=== PATIENT | male | born 1960 | race Caucasian/White ===

== ENCOUNTER 2021-10-22 08:25 | Outpatient (REF) | payer OTHER, SELFPAY ==
--- NOTE | ~2021-10-22 | CT_ITS ---
EXAMINATION: CT ABDOMEN WITHOUT AND WITH CONTRAST CLINICAL INFORMATION: Hypertension. Renal cyst. COMPARISON: Previous CT of the abdomen and pelvis June 2018 TECHNIQUE: Contiguous axial thin section helical images of the abdomen were performed before and after the administration of oral contrast and 85 mL of Omnipaque 350 intravenous contrast. The data set was reformatted in the coronal and sagittal planes and reviewed on an independent workstation. This CT examination was performed using dose optimization techniques as appropriate, variously including the following: *Automated exposure control *Adjustment of mA and/or kV according to patient size (this includes techniques or standardized protocols for targeted exams where dose is matched to indication/reason for exam; i.e. extremities or head) *Use of iterative reconstruction technique DLP: 495 mGy-cm FINDINGS: LUNG BASES: Normal LIVER, GALLBLADDER, AND BILIARY TREE: Normal PANCREAS: Normal SPLEEN: Normal ADRENAL GLANDS AND KIDNEYS: There is a 1.4 cm lesion exophytic to the posterior mid pole of the left kidney. Hounsfield units precontrast measure 22. Hounsfield units postcontrast measure 22 without evidence of enhancement. Appearance is suggestive of a slightly complex cyst. There is a 9 mm simple appearing cyst in the upper pole of the left kidney. There are 2 adjacent 5 mm simple appearing cysts in the lateral midpole of the right kidney. No renal mass or hydronephrosis. Normal adrenal glands. BOWEL LOOPS: The small and large bowel is unremarkable. There may be fold thickening of the stomach. LYMPH NODES: Normal. VASCULAR: There is a partially thrombosed lower abdominal aortic aneurysm. This measures 5.4 x 5.8 cm in AP and transverse dimension. This is slightly increased in size from 4.7 x 5 cm June 2018 exam. BONES: There are degenerative changes of the spine. CT/CT abdomen wo/w con IMPRESSION: Bilateral renal cysts. Largest cyst is a minimally complex 1.4 cm cyst exophytic to the posterior mid pole of the left kidney. The remainder of the renal cysts represent simple cysts. Partially thrombosed 5.4 x 5.8 cm abdominal aortic aneurysm slightly increased in size from most recent exam June 2018. Fleischner guidelines were followed. Findings will be communicated by the [facility] work flow education adviser.
[2021-10-22] MEDS: iohexoL 350 MG/ML 100 ML INFUS..BTL 85 ML IV (09:28)
== END 2021-10-22 08:26 | disposition home or self-care (01) ==
LOC: HO.CT 08:25
PROVIDERS: Visit Provider Internal Medicine Nephrology
DX: I10 Essential (primary) hypertension (principal)
CPT/HCPCS: 74170; Q9967

== ENCOUNTER 2022-08-22 11:54 | Emergency (ER) | payer OTHER, SELFPAY ==
[2022-08-22 12:15] VITALS: BP 155/90; PULSE 104; RESP 20; TEMP 36.8; O2SAT 96; BMI 29.8
--- NOTE | 2022-08-22 12:16 | ED.GENADULT ---
HPI - General Adult General Chief complaint: Urogenital-Male Stated complaint: blood in urine Time Seen by Provider: 08/22/22 13:00 Source: patient, RN notes reviewed and old records reviewed Mode of arrival: ambulatory History of Present Illness HPI narrative: 62-year-old male with a past medical history of UTI recently treated with Doxycycline on 08/03/22, presenting to the ED complaining of hematuria and dysuria x couple weeks. Admits was recently seen at [facility] diagnosed with UTI, taking antibiotics which he finished a few days ago without relief. Admits has been worked up for hematuria in the past with MRI/other studies, known to have enlarged prostate. Denies flank pain, abdominal pain, fever/chills, lightheadedness/dizziness, penile swelling/lesion Onset (ago): week(s) Related Data Previous Rx's Medication Instructions Recorded cefpodoxime 200 mg tablet 200 mg PO BID 7 days #14 tabs 08/22/22 phenazopyridine 100 mg tablet 100 mg PO TID PRN pain 6 doses #6 08/22/22 (Pyridium) tabs Allergies Allergy/AdvReac Type Severity Reaction Status Date / Time No Known Allergies Allergy Unverified 12/14/19 17:16 [No Known Allergies*] Review of Systems Review of Systems: Constitutional: No Fever, No Chills, No Fatigue, No Malaise ENT/Mouth: No Hearing loss, No Ear Pain, No sore throat, No Rhinorrhea, No Swallowing Difficulty Eyes: No Eye Pain, No Swelling, No Redness, No Vision Changes Cardiovascular: No Chest Pain, No SOB Respiratory: No Cough, No Sputum, No Dyspnea Gastrointestinal: No Nausea, No Vomiting, No Diarrhea, No Constipation, No Abdominal pain Genitourinary: No irregular bleeding, + Dysuria, No Urinary Frequency,+ Hematuria, No Flank Pain, No Urinary Flow Changes, No Hesitancy Musculoskeletal: No joint pain, No Myalgias, No Joint Swelling Skin: No Skin Lesions, No rash Neuro: No Weakness, No Loss of Consciousness, No Dizziness, No Headache Yes all other systems are reviewed and are negative Constitutional: Constitutional: Reports as per [facility] Past Medical History Attestation statement: The following information was validated with the patient. Source: old records reviewed Social History Social History Alcohol intake: never Smoked in Last 30 Days: No Use of substances other than those prescribed or required for medical reasons: No Advance Directives: No Advance Directives Information Provided: Yes Physical Exam ED Vital Signs: Vital Signs - 24 hr 08/22/22 12:15 08/22/22 14:33 08/22/22 16:48 Temperature 98.3 F 98.1 F 98.0 F Pulse Rate 104 H 81 78 Respiratory Rate 20 16 16 Blood Pressure 155/90 H 147/90 H 161/95 H Pulse Oximetry 96 96 96 Oxygen Delivery Method Room Air Room Air Room Air BMI result Body Mass Index 29.8 Const General: cooperative, healthy appearing and no acute distress Orientation/consciousness: patient oriented x3 Limitations: no limitations HENMT Head: Yes normal to inspection and Yes atraumatic Ears: hearing grossly normal bilaterally General nose exam: Normal external nose present Face and sinus: Yes normal facial exam Eyes General: appearance normal, both eyes and all related structures EOM: EOMs intact bilaterally Neck Neck: Yes normal visual inspection and Yes no meningeal signs Resp Effort & Inspection: normal respiratory effort and no respiratory distress Cardio Rate: regular rate Heart sounds: S1 normal heart sound present and S2 normal heart sound present GI Inspection: Yes normal to inspection Palpation (GI): Soft to palpation, nontender, no guarding and not rigid General: Yes no CVA tenderness Back/Spine/Pelvis Back: no CVA tenderness Skin Rashes: no rashes Wounds: no wounds Neuro General: patient oriented x3, tone normal and no meningeal signs Gait exam (Neuro): Normal gait present Extrem General: Yes normal to inspection Course Course Course Narrative: RME performed by Citlaly Catherine PA-C. Patient is a 62 year old assigned male at presenting to the emergency department with blood in his urine and pain with urination. Labs ordered. Patient placed back in the waiting room pending room availability and results. -1314--mild leukocytosis of 14.0 > likely reactive from pain. low suspicion for severe sepsis. Glucose mildly elevated to 243. Magnesium low 1.3 > 2 g IV repletion ordered -ALT mildly elevated. Alk-phos chronically elevated -1356--UA infected with blood, nitrates, leuk esterase, and wbc's > obtain lactic/blood cultures and give empiric IV Rocephin & Pyridium -1509--lactic acid 2.5 > patient is on metformin, likely cause. Nontoxic appearing, still low suspicion for severe sepsis > will give IVF and repeat -1630--ED care transferred to TYREE Pollack pending repeat lactic and anticipated discharge Reevaluation(s) Reevaluation #1: Patient received in sign-out at change of shift pending repeat lactate. Patient's lactate was decreased to 1.4, he is stable for discharge. Time: 17:14 Medications Administered Discontinued Medications Generic Name Dose Route Start Last Admin Trade Name Freq PRN Reason Stop Dose Admin Magnesium Sulfate 2 gm in 50 mls @ 25 mls/hr 08/22/22 12:56 08/22/22 16:19 Magnesium Sulfate/H2o IV 08/22/22 14:55 Infused ONCE ONE Infusion Ceftriaxone Sodium 1 gm/ 50 mls @ 100 mls/hr 08/22/22 13:54 08/22/22 16:19 Sodium Chloride IV 08/22/22 14:23 Infused ONCE ONE Infusion Sodium Chloride 1,000 mls @ 999 mls/hr 08/22/22 15:15 08/22/22 16:19 Ns IV 08/22/22 16:15 Infused .Q1H1M BIN Infusion Phenazopyridine HCl 100 mg 08/22/22 13:54 08/22/22 14:42 Phenazopyridine Hcl 100 Mg Tablet PO 08/22/22 13:55 100 mg ONCE ONE Administration Medical Decision Making Medical Decision Making [facility] Narrative: 62-year-old male with a past medical history of UTI recently treated with Doxycycline on 08/03/22, presenting to the ED complaining of hematuria and dysuria x couple weeks. On exam mildly tachycardic, NAD, nontoxic appearing, abdomen soft/nontender, no CVAT. Concern for UTI. Lower suspicion for pyelo/renal stone, appendicitis/diverticulitis, or testicular torsion. Low suspicion for severe sepsis Plan: Labs, UA Please refer to course for remaining clinical decision making, interpretation of labs/imaging results, and discussions with consultants and/or family members. Differential Diagnosis Differential Diagnoses: The differential diagnosis associated with the presentation includes As above Admission/Observation Consideration of admission/observation: Escalation of care including admission/observation considered Lab Data [facility] Lab Attestation statement: I reviewed the patient's lab results. 08/22/22 12:29 08/22/22 12:29 Labs: Lab Results 08/22/22 08/22/22 08/22/22 Range/Units 12:29 12:29 13:42 WBC 14.0 H (4.8-10.8) X10*3/uL RBC 4.81 (4.60-5.80) X10*6/uL Hgb 15.0 (14.0-18.0) g/dl Hct 43.7 (42.0-52.0) % MCV 90.9 (80.0-98.0) fL MCH 31.2 (27.0-33.0) pg MCHC 34.3 (31.0-36.0) g/dl RDW 14.9 (11.0-16.0) % Plt Count 365 (160-400) X10*3/uL MPV 9.4 (9.4-12.4) fL Immature Gran % (Auto) 0.4 (0.0-0.4) % Neut % (Auto) 57.8 (45-73) % Lymph % (Auto) 25.5 (20-40) % [place] % (Auto) 13.0 H (2-11) % Eos % (Auto) 2.4 (0-4) % Baso % (Auto) 0.9 (0-2) % Lymph # (Auto) 3.6 (1.2-4.9) X10*3/uL [place] # (Auto) 1.8 H (0.1-1.2) X10*3/uL Eos # (Auto) 0.3 (0.0-0.4) X10*3/uL Baso # (Auto) 0.1 (0.0-0.2) X10*3/uL Abs Immat Gran (auto) 0.05 H (0.00-0.03) X10*3/uL Absolute Neuts (auto) 8.1 (2.0-8.3) x10*3/uL Absolute Nucleated RBC 0.000 (0.0-0.012) X10*3/uL Nucleated RBC % (auto) 0.0 (0.0-0.2) /100WBC Smear Tech's Comments VERIFIED Sodium 142 (135-145) mmol/L Potassium 4.6 (3.3-5.1) mmol/L Chloride 106 (96-108) mmol/L Carbon Dioxide 26 (22-29) mmol/L Anion Gap 15 (12-20) BUN 16 (9-16) mg/dL Creatinine 0.85 (0.5-1.4) mg/dL Estim Creat Clear Calc 95.6 Estimated GFR > 60 Random Glucose 243 H (60-115) mg/dL Lactic Acid (0.5-2.0) mmol/L Calcium 10.1 (8.4-10.2) mg/dL Magnesium 1.3 L* (1.6-2.6) mg/dL Total Bilirubin 0.3 (0.0-1.0) mg/dL AST 33 (5-37) U/L ALT 51 H (0-40) U/L Alkaline Phosphatase 138 H (39-117) U/L Total Protein 7.2 (6.5-8.0) g/dL Albumin 4.3 (3.5-5.0) g/dL Lipase 35 (8-78) U/L Urine Color Dark Yellow Urine Appearance Turbid Urine pH 6.0 (5.0-9.0) Ur Specific [place] 1.020 (1.005-1.025) Urine Protein 300 (3+) H (Neg-Trace) mg/dL Urine Glucose (UA) 250 H (Negative) mg/dL Urine Ketones Negative (Negative) mg/dL Urine Blood Large (3+) H (Negative) Urine Nitrite Positive H (Negative) Ur Leukocyte Esterase Large (3+) H (Negative) Urine RBC >20 H (0-2) /HPF Urine WBC >50 H (0-5) /HPF Ur Squamous Epith Cells 0-2 (0-2) /HPF Urine Bacteria 1+ (None Seen) Hyaline Casts 0-2 (0-2) /LPF 08/22/22 08/22/22 Range/Units 14:30 16:46 WBC (4.8-10.8) X10*3/uL RBC (4.60-5.80) X10*6/uL Hgb (14.0-18.0) g/dl Hct (42.0-52.0) % MCV (80.0-98.0) fL MCH (27.0-33.0) pg MCHC (31.0-36.0) g/dl RDW (11.0-16.0) % Plt Count (160-400) X10*3/uL MPV (9.4-12.4) fL Immature Gran % (Auto) (0.0-0.4) % Neut % (Auto) (45-73) % Lymph % (Auto) (20-40) % [place] % (Auto) (2-11) % Eos % (Auto) (0-4) % Baso % (Auto) (0-2) % Lymph # (Auto) (1.2-4.9) X10*3/uL [place] # (Auto) (0.1-1.2) X10*3/uL Eos # (Auto) (0.0-0.4) X10*3/uL Baso # (Auto) (0.0-0.2) X10*3/uL Abs Immat Gran (auto) (0.00-0.03) X10*3/uL Absolute Neuts (auto) (2.0-8.3) x10*3/uL Absolute Nucleated RBC (0.0-0.012) X10*3/uL Nucleated RBC % (auto) (0.0-0.2) /100WBC Smear Tech's Comments Sodium (135-145) mmol/L Potassium (3.3-5.1) mmol/L Chloride (96-108) mmol/L Carbon Dioxide (22-29) mmol/L Anion Gap (12-20) BUN (9-16) mg/dL Creatinine (0.5-1.4) mg/dL Estim Creat Clear Calc Estimated GFR Random Glucose (60-115) mg/dL Lactic Acid 2.5 H* 1.4 (0.5-2.0) mmol/L Calcium (8.4-10.2) mg/dL Magnesium (1.6-2.6) mg/dL Total Bilirubin (0.0-1.0) mg/dL AST (5-37) U/L ALT (0-40) U/L Alkaline Phosphatase (39-117) U/L Total Protein (6.5-8.0) g/dL Albumin (3.5-5.0) g/dL Lipase (8-78) U/L Urine Color Urine Appearance Urine pH (5.0-9.0) Ur Specific [place] (1.005-1.025) Urine Protein (Neg-Trace) mg/dL Urine Glucose (UA) (Negative) mg/dL Urine Ketones (Negative) mg/dL Urine Blood (Negative) Urine Nitrite (Negative) Ur Leukocyte Esterase (Negative) Urine RBC (0-2) /HPF Urine WBC (0-5) /HPF Ur Squamous Epith Cells (0-2) /HPF Urine Bacteria (None Seen) Hyaline Casts (0-2) /LPF Radiology Impression Discussion of test interpretation with radiology: I have reviewed the radiologist's reading. External Record Review External record reviewed: Inpatient record, Office record, Outpatient record, Prior outpatient labs, Prior outpatient radiology, Primary care record and Outside ED record Tests considered The following testing was considered but not selected: As above Discharge Plan Discharge Clinical Impression: Urinary tract infection Patient Disposition: Home, Self-Care Instructions: Urinary Tract Infection in Men (DC) Additional Instructions: You have a urinary tract infection Cefpodoxime is an antibiotic please take as prescribed, increased fluid intake. Finish until completion Peridium will help with urinary discomfort YOU NEED TO FOLLOW-UP WITH UROLOGY OUTPATIENT. CALL WEDNESDAY AFTER THE TO MAKE AN APPOINTMENT If her symptoms persist or worsen you develop fever, persistent worsening abdominal pain return to the emergency department Prescriptions: New cefpodoxime 200 mg tablet 200 mg PO BID 7 Days Qty: 14 0RF Rx Instructions: must administer with a meal/food phenazopyridine [Pyridium] 100 mg tablet 100 mg PO TID PRN (Reason: pain) Qty: 6 0RF Referrals: [facility] [place]Provider Group]
[2022-08-22 12:37] LABS: Basophils Absolute Auto 0.1 X10*3/uL (0.0-0.2); Basophils Percent Auto 0.9 % (0-2); Eosinophils Absolute Auto 0.3 X10*3/uL (0.0-0.4); Eosinophils Percent Auto 2.4 % (0-4); Hematocrit 43.7 % (42.0-52.0); Imm Gran Abs Auto 0.05 X10*3/uL (0.00-0.03); Imm Gran Pct Auto 0.4 % (0.0-0.4); Lymphocytes Absolute Auto 3.6 X10*3/uL (1.2-4.9); Lymphocytes Percent Auto 25.5 % (20-40); MANUAL DIFF FLAG SCAN; Mean Corpuscular HGB Conc 34.3 g/dl (31.0-36.0); Mean Corpuscular Hemoglobin 31.2 pg (27.0-33.0); Mean Corpuscular Volume 90.9 fL (80.0-98.0); Mean Platelet Volume 9.4 fL (9.4-12.4); Monocytes Absolute Auto 1.8 X10*3/uL (0.1-1.2); Neutrophils Absolute Auto 8.1 x10*3/uL (2.0-8.3); Neutrophils Percent Auto 57.8 % (45-73); Platelet Count 365 X10*3/uL (160-400); Red Blood Count 4.81 X10*6/uL (4.60-5.80); Red Cell Distribution Width 14.9 % (11.0-16.0); SCAN SMEAR FLAG 1
[2022-08-22 12:56] LABS: Alanine Aminotransferase 51 U/L (0-40); Albumin Level 4.3 g/dL (3.5-5.0); Alkaline Phosphatase 138 U/L (39-117); Anion Gap 15 (12-20); Aspartate Amino Transferase 33 U/L (5-37); Bilirubin Total 0.3 mg/dL (0.0-1.0); Blood Urea Nitrogen 16 mg/dL (9-16); Calcium 10.1 mg/dL (8.4-10.2); Carbon Dioxide 26 mmol/L (22-29); Chloride 106 mmol/L (96-108); Creatinine Clr Calc Pharmacy 95.6; Estimated Glomerular Filt Rate > 60; Glucose Random 243 mg/dL (60-115); Magnesium 1.3 mg/dL (1.6-2.6); Potassium 4.6 mmol/L (3.3-5.1); Sodium 142 mmol/L (135-145); Total Protein 7.2 g/dL (6.5-8.0)
[2022-08-22 12:57] LABS: SLIDE REVIEW VERIFIED
[2022-08-22 13:39] LABS: Lipase 35 U/L (8-78)
[2022-08-22 13:48] LABS: Appearance Urine Turbid; Color Urine Dark Yellow; Glucose Urine UA 250 mg/dL (Negative); Leukocyte Esterase Urine Large (3+) (Negative); Nitrite Urine Positive (Negative); UMIC TRIGGER UACC YES; Urine Blood Large (3+) (Negative); Urine Ketones Negative (Negative); Urine Protein 300 (3+) mg/dL (Neg-Trace)
[2022-08-22 13:50] LABS: Bacteria Urine 1+ (None Seen); Hyaline Casts Urine 0-2 /LPF (0-2); RBC Urine >20 /HPF (0-2); Squamous Epithelial Cell Urine 0-2 /HPF (0-2); UACC Culture Trigger YES; WBC Urine >50 /HPF (0-5)
[2022-08-22] MEDS: Magnesium Sulfate/H2O 2 GM/50 ML PIGGYBACK IV (14:01)
[2022-08-22 14:33] VITALS: BP 147/90; PULSE 81; RESP 16; TEMP 36.7; O2SAT 96
[2022-08-22] MEDS: Phenazopyridine HCL 100 MG TABLET PO (14:42)
[2022-08-22 15:02] LABS: Lactic Acid 2.5 mmol/L (0.5-2.0)
[2022-08-22] MEDS: cefTRIAXone sodium 1 GM in 0.9 % Sodium Chloride 50 ML IV (15:26)
[2022-08-22] MEDS: 0.9 % Sodium Chloride 1,000 ML 999 ML IV (15:27)
[2022-08-22 16:34] LABS: Reflex Lactate? Lactic Acid Added
[2022-08-22 16:48] VITALS: BP 161/95; PULSE 78; RESP 16; TEMP 36.7; O2SAT 96
[2022-08-22 17:03] LABS: Lactic Acid 1.4 mmol/L (0.5-2.0)
== END 2022-08-22 17:49 | disposition home or self-care (01) ==
PROVIDERS: Physician Assistant; Physician Assistant Medical; Emergency Provider Internal Medicine
DX: N39.0 Urinary tract infection, site not specified (principal); B96.20 Unspecified Escherichia coli [E. coli] as the cause of diseases classified elsewhere; Z87.440 Personal history of urinary (tract) infections; Z79.899 Other long term (current) drug therapy
CPT/HCPCS: 36415; 80053; 81001; 83605; 83690; 83735; 85025; 87040; 87086; 87088; 87186; 96361; 96365; 96366; 96367; 99284; 99285; J0696; J3475

== ENCOUNTER → 2024-06-21 11:04 | Outpatient (BNVA) | payer SELFPAY | PROVIDERS: Visit Provider Physician Assistant | DX: Z02.79 Encounter for issue of other medical certificate (principal) ==

== ENCOUNTER 2024-08-26 12:16 | Inpatient (IN) | payer OTHER, SELFPAY ==
[2024-08-26] VITALS (13 sets, daily range): BP systolic 105–137; BP diastolic 56–82; PULSE 90–129; RESP 13–35; TEMP 36.9–39.2; O2SAT 92–95; BMI 30.7
--- NOTE | ~2024-08-26 | CT_ITS ---
CLINICAL HISTORY: buttock cellulitis to perineum ?[place] vs absce CT pelvisv with IV contrast. COMPARISON: None FINDINGS: Diffuse subcutaneous edema along the left gluteal region along the gluteal cleft extending inferiorly along the medial aspect of the left thigh. Organizing fluid collection present along bulbous urethra on the left measuring in total approximately 4.1 x 0.9 x 1.7 cm (series 3, image 367). No subcutaneous gas. No foreign body identified. Asymmetric smooth thickening of the mucosa of the urinary bladder along the proximal aspect (best seen on sagittal and coronal reformats series 4, image 50 and series 5, image 88). No free fluid present within the pelvis. Several enlarged left inguinal lymph nodes. For example left inguinal lymph node measuring 2.9 x 2.0 cm (series 3, image 261). Multiple prominent retroperitoneal/periaortic lymph nodes. Partially visualized aorto bi-iliac stent bridging the infrarenal abdominal aortic aneurysm measuring minimally up to 5.2 cm. No evidence of endoleak. Moderate spondylosis at L5-S1. No acute fracture or suspicious bone lesion. IMPRESSION: 1. Abscess present along the bulbous urethra on the left measuring in total approximately 4.1 x 0.9 x 1.7 cm. There is extensive adjacent subcutaneous edema extending along the medial aspect of the left thigh and left gluteal region. No subcutaneous gas. 2. Multiple prominent and enlarged left inguinal lymph nodes. 3. Indeterminate asymmetric thickening of the mucosa of the urinary bladder along the most proximal aspect. Recommend direct visualization for further characterization. This document has been electronically signed by: Donald Sultana MD on 08/26/2024 17:24:38
--- NOTE | 2024-08-26 12:21 | ED_ITS ---
HPI - General Adult General Chief complaint: Urogenital-Male Stated complaint: ? urinary infection Time Seen by Provider: 08/26/24 13:20 Source: patient, RN notes reviewed and old records reviewed Mode of arrival: ambulatory History of Present Illness ED Provider: Loretta Mckeon PA-C HPI narrative: 64-year-old male with a past medical history of diabetes presenting to the ED complaining of fever, chills, and worsening left buttock abscess x2 weeks with odorous urine. Reports associated constipation, last BM today in the ED. Admits to taking Amoxicillin which he had at home without relief. denies abdominal pain, nausea, vomiting, dysuria/hematuria. denies taking any antipyretics today Related Data Home Medications ?Medication ?Instructions ?Recorded ?Confirmed cholecalciferol (vitamin D3) 25 25 mcg PO DAILY 08/26/24 08/26/24 mcg (1,000 unit) capsule (Vitamin D3) losartan 100 1 tab PO DAILY 08/26/24 08/26/24 mg-hydrochlorothiazide 25 mg tablet metformin 1,000 mg tablet 1,000 mg PO BID 08/26/24 08/26/24 multivitamin (One Daily 1 tab PO DAILY 08/26/24 08/26/24 Multivitamin tablet) Allergies Allergy/AdvReac Type Severity Reaction Status Date / Time lisinopril Allergy Unknown Verified 08/26/24 12:24 Review of Systems 2 Review of Systems: Yes all other systems are reviewed and are negative Constitutional: Constitutional: Reports as per HPI [facility] Past Medical History Attestation statement: The following information was validated with the patient. Source: old records reviewed Social History Social History Alcohol intake: never Advance Directives: No Advance Directives Information Provided: Yes Physical Exam ED Vital Signs: Vital Signs - 24 hr 08/26/24 12:23 08/26/24 13:49 08/26/24 13:58 Temperature 98.5 F 101.8 F H 101.8 F H Pulse Rate 129 H 116 H 113 H Respiratory Rate 20 29 H 35 H Blood Pressure 127/82 125/74 132/76 Pulse Oximetry 95 94 94 Oxygen Delivery Method Room Air Room Air Room Air 08/26/24 14:19 08/26/24 14:23 08/26/24 15:14 Temperature 102.5 F H Pulse Rate 109 H Respiratory Rate 21 H 17 Blood Pressure 137/80 Pulse Oximetry 94 Oxygen Delivery Method Room Air 08/26/24 15:16 08/26/24 16:32 08/26/24 16:34 Temperature 102.5 F H 100.9 F H Pulse Rate 98 90 Respiratory Rate 23 H 18 28 H Blood Pressure 114/64 122/68 Pulse Oximetry 93 94 Oxygen Delivery Method Room Air Room Air BMI result Body Mass Index 30.7 Const General: cooperative, healthy appearing and no acute distress Orientation/consciousness: patient oriented x3 Limitations: no limitations HENMT Head: Yes normal to inspection and Yes atraumatic Ears: hearing grossly normal bilaterally General nose exam: Normal external nose present Face and sinus: Yes normal facial exam Eyes General: appearance normal, both eyes and all related structures EOM: EOMs intact bilaterally Neck Neck: Yes normal visual inspection and Yes no meningeal signs Resp Effort & Inspection: normal respiratory effort and no respiratory distress Auscultation: clear to auscultation bilaterally Cardio Rate: regular rate Heart sounds: S1 normal heart sound present and S2 normal heart sound present GI Other: please refer to images above. Left buttock with erythematous swelling, warm, and indurated area extending to perineum. No appreciable perirectal involvement. No fluctuance. No active drainage. No crepitus Inspection: Yes normal to inspection Palpation (GI): Soft to palpation, nontender, no guarding and not rigid General: Yes no CVA tenderness Back/Spine/Pelvis Back: no CVA tenderness Skin Rashes: no rashes Wounds: no wounds Neuro General: patient oriented x3, tone normal and no meningeal signs Cranial nerves: Yes CN's II-XII intact bilaterally Gait exam (Neuro): Normal gait present Extrem General: Yes normal to inspection Course Course Course Narrative: RME performed by Citlaly Catherine PA-C. Patient is a 64 year old assigned male at presenting to the emergency department with a worsening left buttock abscess and strong smelling urine. Patient states that over the last few days he has had an abscess on his left buttock that is getting significantly worse. Patient states that he is a diabetic and he has not been able to have a bowel movement for 1 week. Patient states that he has been taking amoxicillin but it was not prescribed to him he has just been taking it. Detailed physical exam and review of systems are deferred to the oil field worker. Labs ordered. Patient placed back in the waiting room pending room availability and results. - leukocytosis of 20.2. ESR elevated to 83, CRP elevated 16.6 -glucose 335, BUN elevated to 24. AST/ALT mildly elevated. Alk phos chronically elevated >1630-- pelvic CT without appreciable fluid collection. Case discussed with general surgery, Dr. De Anda who evaluated patient in the ED. Recommends medicine admission for IV abx, NPO, and he will follow 1734--CT pelvis w IV con IMPRESSION: 1. Abscess present along the bulbous urethra on the left measuring in total approximately 4.1 x 0.9 x 1.7 cm. There is extensive adjacent subcutaneous edema extending along the medial aspect of the left thigh and left gluteal region. No subcutaneous gas. 2. Multiple prominent and enlarged left inguinal lymph nodes. 3. Indeterminate asymmetric thickening of the mucosa of the urinary bladder along the most proximal aspect. Recommend direct visualization for further characterization > will discuss case with Urology, Dr. Sánchez > recommended NO Chambers placement. Keep patient NPO. - patient was able to provide UA. UA appears infected Medications Administered Discontinued Medications Generic Name Dose Route Start Last Admin Trade Name Freq PRN Reason Stop Dose Admin Sodium Chloride 1,000 mls @ 999 mls/hr 08/26/24 13:45 08/26/24 15:14 Ns IV 08/26/24 14:45 Infused .Q1H1M BIN Infusion Piperacillin Sod/Tazobactam 100 mls @ 200 mls/hr 08/26/24 13:37 08/26/24 14:30 Sod 4.5 gm/ Sodium Chloride IV 08/26/24 14:06 Infused ONCE ONE Infusion Vancomycin HCl 2,000 mg in 500 mls @ 250 mls/hr 08/26/24 13:37 08/26/24 17:25 Vancomycin/Ns IV 08/26/24 15:36 Infused ONCE ONE Infusion Acetaminophen 1,000 mg in 100 mls @ 400 mls/hr 08/26/24 14:00 08/26/24 14:40 Ofirmev IV 08/26/24 14:14 Infused ONCE ONE Infusion Lactated Ringer's 1,000 mls @ 999 mls/hr 08/26/24 15:00 08/26/24 16:30 Lr IV 08/26/24 16:00 Infused .Q1H1M BIN Infusion Iohexol 100 ml 08/26/24 15:01 08/26/24 15:01 Iohexol 350 Mg/Ml 100 Ml Infus..Btl IV 08/26/24 15:02 85 ml ONCE ONE Administration Ketorolac Tromethamine 15 mg 08/26/24 15:01 08/26/24 15:16 Ketorolac Tromethamine 15 Mg/Ml Vial IVPUSH 08/26/24 15:02 15 mg ONCE ONE Administration Morphine Sulfate 2 mg 08/26/24 14:00 08/26/24 14:19 Morphine Sulfate 2 Mg/Ml Cartridge IVPUSH 08/26/24 14:01 2 mg ONCE ONE Administration Protocol Morphine Sulfate 2 mg 08/26/24 16:18 08/26/24 16:34 Morphine Sulfate 2 Mg/Ml Cartridge IVPUSH 08/26/24 16:19 2 mg ONCE ONE Administration Protocol Medical Decision Making Medical Decision Making MDM Narrative: 64-year-old male with a past medical history of diabetes presenting to the ED complaining of fever, chills, and worsening left buttock abscess x2 weeks with odorous urine. on exam tachycardic, tachypneic, febrile, physical exam as noted above, please refer to images. Concern for cellulitis vs deeper infection/edema vs abscess. Roberta's gangrene on differential. Low suspicion for testicular torsion. Lower suspicion for diverticulitis/ appendicitis at this time Plan: Labs, lactic/ blood cultures, UA, CT, IVF, empiric IV antibiotics, anticipated admission Please refer to course for remaining clinical decision making, interpretation of labs/imaging results, and discussions with consultants and/or family members. Differential Diagnosis Differential Diagnoses: The differential diagnosis associated with the presentation includes As above Admission/Observation Consideration of admission/observation: Escalation of care including admission/observation considered Consult Healthcare Provider Management of the patient was discussed with: Hospitalist and Painting Trades Worker ( general surgery & urology) Lab Data [facility] Lab Attestation statement: I reviewed the patient's lab results. 08/26/24 12:55 08/26/24 12:55 Labs: Lab Results 08/26/24 08/26/24 Range/Units 12:55 13:51 WBC 20.2 H (4.8-10.8) X10*3/uL RBC 4.94 (4.60-5.80) X10*6/uL Hgb 14.6 (14.0-18.0) g/dl Hct 42.1 (42.0-52.0) % MCV 85.2 (80.0-98.0) fL MCH 29.6 (27.0-33.0) pg MCHC 34.7 (31.0-36.0) g/dl RDW 12.7 (11.0-16.0) % Plt Count 385 (160-400) X10*3/uL MPV 9.7 (9.4-12.4) fL Immature Gran % (Auto) 0.5 H (0.0-0.4) % Neut % (Auto) 77.9 H (45-73) % Lymph % (Auto) 9.1 L (20-40) % [place] % (Auto) 11.8 H (2-11) % Eos % (Auto) 0.2 (0-4) % Baso % (Auto) 0.5 (0-2) % Lymph # (Auto) 1.8 (1.2-4.9) X10*3/uL [place] # (Auto) 2.4 H (0.1-1.2) X10*3/uL Eos # (Auto) 0.0 (0.0-0.4) X10*3/uL Baso # (Auto) 0.1 (0.0-0.2) X10*3/uL Abs Immat Gran (auto) 0.11 H (0.00-0.03) X10*3/uL Absolute Neuts (auto) 15.7 H (2.0-8.3) x10*3/uL Absolute Nucleated RBC 0.000 (0.0-0.012) X10*3/uL Nucleated RBC % (auto) 0.0 (0.0-0.2) /100WBC Smear Tech's Comments VERIFIED ESR 83 H (0-15) MM/HR Sodium 131 L (135-145) mmol/L Potassium 4.2 (3.3-5.1) mmol/L Chloride 99 (96-108) mmol/L Carbon Dioxide 19 L (22-29) mmol/L Anion Gap 17 (12-20) BUN 24 H (9-16) mg/dL Creatinine 0.89 (0.5-1.4) mg/dL Estim Creat Clear Calc 87.4 Estimated GFR > 60 POC Glucose 307 H (60-115) mg/dL Random Glucose 335 H (60-115) mg/dL Lactic Acid 1.3 (0.5-2.0) mmol/L Calcium 9.3 D (8.4-10.2) mg/dL Magnesium 1.9 (1.6-2.6) mg/dL Total Bilirubin 0.5 (0.0-1.0) mg/dL AST 81 H (5-37) U/L ALT 85 H (0-40) U/L Alkaline Phosphatase 131 H (39-117) U/L C-Reactive Protein 16.60 H (< or = 0.50) mg/dL Total Protein 7.9 (6.5-8.0) g/dL Albumin 3.9 (3.5-5.0) g/dL Independent Interpretation I performed an independent interpretation of an: CT Scan Radiology Impression Discussion of test interpretation with radiology: I have reviewed the radiologist's reading. Independent Historian Clinical information obtained from an independent historian. History obtained from or confirmed by: Spouse External Record Review External record reviewed: Inpatient record, Office record, Outpatient record, Prior outpatient labs, Prior outpatient radiology, Primary care record and Outside ED record Tests considered The following testing was considered but not selected: As above Prescription Management I considered prescription management with: Pain Medication and Antibiotic Chronic Conditions Patient?s care impacted by: Diabetes and Other Social Determinants Patient?s care significantly limited by Social Determinants of Health including: Other Social Determinant of Health Critical Care Time Critical Care Time Critical Care Time: Yes Total Critical Care Time: 50 Attestation: I have personally provided critical care time exclusive of time spent on separately billable procedures. Time includes review of lab data, radiology results, discussion with consultants, and monitoring for potential decompensation. Intervention performed as documented. Discharge Plan Discharge Clinical Impression: Urethral abscess, Cellulitis of buttock, left Patient Disposition: Admitted As Inpatient
[2024-08-26 13:07] LABS: Basophils Absolute Auto 0.1 X10*3/uL (0.0-0.2); Basophils Percent Auto 0.5 % (0-2); Eosinophils Percent Auto 0.2 % (0-4); Hematocrit 42.1 % (42.0-52.0); Hemoglobin 14.6 g/dl (14.0-18.0); Imm Gran Abs Auto 0.11 X10*3/uL (0.00-0.03); Imm Gran Pct Auto 0.5 % (0.0-0.4); Lymphocytes Absolute Auto 1.8 X10*3/uL (1.2-4.9); Lymphocytes Percent Auto 9.1 % (20-40); MANUAL DIFF FLAG SCAN; Mean Corpuscular HGB Conc 34.7 g/dl (31.0-36.0); Mean Corpuscular Hemoglobin 29.6 pg (27.0-33.0); Mean Corpuscular Volume 85.2 fL (80.0-98.0); Mean Platelet Volume 9.7 fL (9.4-12.4); Monocytes Absolute Auto 2.4 X10*3/uL (0.1-1.2); Monocytes Percent Auto 11.8 % (2-11); Neutrophils Absolute Auto 15.7 x10*3/uL (2.0-8.3); Neutrophils Percent Auto 77.9 % (45-73); Platelet Count 385 X10*3/uL (160-400); Red Blood Count 4.94 X10*6/uL (4.60-5.80); Red Cell Distribution Width 12.7 % (11.0-16.0); SCAN SMEAR FLAG 1; White Blood Count 20.2 X10*3/uL (4.8-10.8)
[2024-08-26 13:21] LABS: Alanine Aminotransferase 85 U/L (0-40); Albumin Level 3.9 g/dL (3.5-5.0); Alkaline Phosphatase 131 U/L (39-117); Anion Gap 17 (12-20); Aspartate Amino Transferase 81 U/L (5-37); Bilirubin Total 0.5 mg/dL (0.0-1.0); Blood Urea Nitrogen 24 mg/dL (9-16); Calcium 9.3 mg/dL (8.4-10.2); Carbon Dioxide 19 mmol/L (22-29); Chloride 99 mmol/L (96-108); Creatinine Clr Calc Pharmacy 87.4; Estimated Glomerular Filt Rate > 60; Glucose Random 335 mg/dL (60-115); Lactic Acid 1.3 mmol/L (0.5-2.0); Magnesium 1.9 mg/dL (1.6-2.6); Potassium 4.2 mmol/L (3.3-5.1); Sodium 131 mmol/L (135-145); Total Protein 7.9 g/dL (6.5-8.0)
[2024-08-26 13:27] LABS: SLIDE REVIEW VERIFIED
--- NOTE | 2024-08-26 13:37 | ECG_ITS ---
Test Reason : TACHY Blood Pressure : */* mmHG Vent. Rate : 116 BPM Atrial Rate : 116 BPM P-R Int : 152 ms QRS Dur : 132 ms QT Int : 352 ms P-R-T Axes : 45 -49 30 degrees QTcB Int : 489 ms Sinus tachycardia Right bundle branch block Left anterior fascicular block Bifascicular block Abnormal ECG When compared with ECG of 15-Jul-2018 01:44, Left anterior fascicular block is now Present Nonspecific T wave abnormality has replaced inverted T waves in Inferior leads Referred By: Rose Self Electronically Signed By: ERIS CARCAMO MD
[2024-08-26 13:43] LABS: Erythrocyte Sedimentation Rate 83 MM/HR (0-15)
[2024-08-26 13:55] LABS: Glucose, Whole Blood 307 mg/dL (60-115)
[2024-08-26] MEDS: Piperacillin Sodium/Tazobactam 4.5 GM in 0.9 % Sodium Chloride 100 ML IV (13:55)
[2024-08-26] MEDS: 0.9 % Sodium Chloride 1,000 ML 999 ML IV (13:55)
--- NOTE | 2024-08-26 14:00 | PC.NURSE ---
Late charting d/t patient care- Pt arrives to ED tachycardiac, tachypneic and febrile. Sepsis alert called @ 1334. Pt a/ox3, speaking in full sentences, respirations even and unlabored, mild sob- RR 23-28, no accessory muscle use/tripoding, placed on pvc monitor, continuous O2 probe, and BP cycling q10 to monitor for hypotension, sinus tach HR 110s-120s, denies CP. Rectal temp 102.5- PA Loretta made aware. Rectal probe placed to monitor pt temperature. 20g IV placed R AC by this RN. Labs and blood cultures obtained and sent to lab. IV abx hung after cultures obtained, IV fluids infusing per MAR, vitalss entered into worklist. Pt taken to CT scan.
[2024-08-26] MEDS: Acetaminophen 1,000 MG/100 ML PIGGYBACK 400 MG IV (14:18)
[2024-08-26] MEDS: Morphine Sulfate 2 MG/ML CARTRIDGE IVPUSH ×2 (14:19→16:34)
[2024-08-26] MEDS: iohexoL 350 MG/ML 100 ML INFUS..BTL IV (15:01)
[2024-08-26] MEDS: vancomycin/NS 2,000 MG/500 ML PLAST..BAG 250 MG IV (15:15)
[2024-08-26] MEDS: Lactated Ringers 1,000 ML 999 ML IV (15:16)
[2024-08-26] MEDS: Ketorolac Tromethamine 15 MG/ML VIAL IVPUSH (15:16)
--- NOTE | 2024-08-26 16:42 | PM.CNGS ---
History of Present Illness Consult details Consult date: 08/26/24 Narrative: 64-year-old male who says he has air in the ER because of severe pain with urination, as well as with a swelling and tenderness on the left buttock area. Review of his records show this was actually in the ER 4 days ago for dysuria was diagnosed to have a UTI. He was discharged on oral antibiotics. He says that this has not really improved and continues to have significant pain and burning with urination. He admits to having had a long history of urinary tract infections and had a procedure done in [facility] last year. He says that he was being followed by urologist He also says he has had this going on the buttock area for about 10 days now. He says that he has significant pain as well. He is a diabetic admits that he does not really keep track of his blood sugars. Review of Systems Constitutional: Constitutional: Reports chills and Reports fever(s) Cardiovascular: Cardiovascular: Denies chest pain and Denies dyspnea Respiratory: Respiratory: Denies cough and Denies dyspnea Gastrointestinal: Gastrointestinal: Denies abdominal pain Genitourinary: Genitourinary: Reports difficulty urinating and Reports dysuria [facility] Social History Social History Alcohol intake: never Patient Tobacco Use Status: Never used Tobacco Meds Allergies Allergy/AdvReac Type Severity Reaction Status Date / Time lisinopril Allergy Unknown Verified 08/26/24 12:24 Home Medications ?Medication ?Instructions ?Recorded ?Confirmed ?Last Taken ?Type cholecalciferol (vitamin D3) 25 25 mcg PO DAILY 08/26/24 08/26/24 08/25/24 History mcg (1,000 unit) capsule (Vitamin D3) losartan 100 1 tab PO DAILY 08/26/24 08/26/24 08/25/24 History mg-hydrochlorothiazide 25 mg tablet metformin 1,000 mg tablet 1,000 mg PO BID 08/26/24 08/26/24 08/25/24 History multivitamin (One Daily 1 tab PO DAILY 08/26/24 08/26/24 08/25/24 History Multivitamin tablet) Physical Exam Vital Signs: Vital Signs: Last Vital Signs Temp 100.7 F H 08/26/24 16:41 Pulse 92 08/26/24 16:41 Resp 25 H 08/26/24 16:41 BP 119/67 08/26/24 16:41 Pulse Ox 94 08/26/24 16:41 O2 Del Method Room Air 08/26/24 16:41 BMI result Body Mass Index 30.7 Const: Other: Alert, does not seem to be in any distress, comfortable looking and answers questions well General: comfortable and no acute distress Resp: Effort & Inspection: normal respiratory effort Cardio: Rate: regular rate GI: Palpation (GI): Soft to palpation Back/Spine/Pelvis: Other: Area of induration on the left buttock towards the perineum,, about 6 cm, redness, no obvious discharge, no obvious drainage no obvious fluctuance, no crepitus, some erythema but no dark discoloration suggestive of necrotizing infection Results Labs 08/27/24 04:59 08/27/24 04:59 Labs: Abnormal lab results 08/26/24 08/26/24 Range/Units 12:55 13:51 WBC 20.2 H (4.8-10.8) X10*3/uL Immature Gran % (Auto) 0.5 H (0.0-0.4) % Neut % (Auto) 77.9 H (45-73) % Lymph % (Auto) 9.1 L (20-40) % [place] % (Auto) 11.8 H (2-11) % [place] # (Auto) 2.4 H (0.1-1.2) X10*3/uL Abs Immat Gran (auto) 0.11 H (0.00-0.03) X10*3/uL Absolute Neuts (auto) 15.7 H (2.0-8.3) x10*3/uL ESR 83 H (0-15) MM/HR Sodium 131 L (135-145) mmol/L Carbon Dioxide 19 L (22-29) mmol/L BUN 24 H (9-16) mg/dL POC Glucose 307 H (60-115) mg/dL Random Glucose 335 H (60-115) mg/dL AST 81 H (5-37) U/L ALT 85 H (0-40) U/L Alkaline Phosphatase 131 H (39-117) U/L C-Reactive Protein 16.60 H (< or = 0.50) mg/dL Short CBC 08/26/24 Range/Units 12:55 WBC 20.2 H (4.8-10.8) X10*3/uL Hgb 14.6 (14.0-18.0) g/dl Hct 42.1 (42.0-52.0) % Plt Count 385 (160-400) X10*3/uL BMP 08/26/24 12:55 Sodium 131 L Potassium 4.2 Chloride 99 Carbon Dioxide 19 L BUN 24 H Creatinine 0.89 Calcium 9.3 D Liver Function 08/26/24 Range/Units 12:55 Total Bilirubin 0.5 (0.0-1.0) mg/dL AST 81 H (5-37) U/L ALT 85 H (0-40) U/L Alkaline Phosphatase 131 H (39-117) U/L Albumin 3.9 (3.5-5.0) g/dL All other labs normal. Assessment and Plan (1) Cellulitis of buttock, left: Status: Acute He has a significant induration with cellulitis in the left buttock. I have reviewed his CAT scan and this shows stranding in the subcutaneous fat any fluid collection. Clinically, he had is not presenting with necrotizing soft tissue infection. He does have clinical signs of a UTI as well I have recommended admission for IV antibiotics. He has has significant leukocytosis. Has been started on Zosyn. His blood sugars should be well controlled I told him that if repeat exam tomorrow shows worsening, I may take him to the operating room for an I&D the left buttock under anesthesia I explained this procedure to himself and his at bedside . His CAT scan on official read says that the inflammatory process may be originating from the bulbous urethra. I would recommend consulting the radiologist for this. His lactate is normal. Procedures Date of Service Date of Service: 08/28/24
[2024-08-26 16:59] LABS: Appearance Urine Turbid; Color Urine Yellow; Glucose Urine UA 100 mg/dL (Negative); Leukocyte Esterase Urine Large (3+) (Negative); Nitrite Urine Negative (Negative); Specific Gravity - Urine >= 1.030 (1.005-1.025); UMIC TRIGGER UACC YES; Urine Blood Moderate (2+) (Negative); Urine Ketones Trace mg/dL (Negative); Urine Protein 30 (1+) mg/dL (Neg-Trace)
--- NOTE | 2024-08-26 17:30 | PC.NURSE ---
Pt poc's elevated 300s, TYREE Burgos and MD Solorzano aware. No new orders at this time.
[2024-08-26 17:38] LABS: Bacteria Urine 1+ (None Seen); Hyaline Casts Urine 0-2 /LPF (0-2); RBC Urine 0-2 /HPF (0-2); UACC Culture Trigger YES; WBC Clumps Urine Present; WBC Urine >50 /HPF (0-5)
--- NOTE | 2024-08-26 17:40 | PHA.MEDREC ---
Pharmacy Consult ? Medication Reconciliation Pharmacy has completed the medication reconciliation. Spoke to patient to confirm medication list.
--- NOTE | 2024-08-26 17:44 | PM.IMHP ---
History of Present Illness Date of Service: 08/26/24 Chief Complaint: fever, buttock pain 64yo M with DM2, HTN, and BPH s/p robotic-assisted laparoscopic simple prostatectomy [[facility] 03/30/23] presenting with worsening painful lump on the L inner buttock over the last 2 weeks with associated foul urine, fever, and chills. No drainage from the lump, but it is red. Some nausea and vomiting. No dysuria or hematuria. He took amoxicillin leftover from an old dental infection at home without any relief. He is found here to be septic with leukcytosis, fever, tachypnea, and tachycardia. CT of the pelvis shows an abscess along the bulbous urethra with extensive adjacent subcutaneous edema extending along the left thigh and gluteal area, with asymmetric bladder thickening. General Surgery and Urology were notified by the ED and he will be admitted to the hospitalist service. He is from the [place] and his PCP is Emily Munson at [facility], but he hasn't seen her yet. This history was taken in [place] from the patient. Review of Systems Review of Systems: Yes all other systems are reviewed and are negative [facility] Social History Alcohol intake: never Advance Directives: No Advance Directives Information Provided: Yes Meds Allergies Allergy/AdvReac Type Severity Reaction Status Date / Time lisinopril Allergy Unknown Verified 08/26/24 12:24 Active Medications: Current Medications Dextrose (Dextrose 50 % 25 Gm/50 Ml Syringe) 25 gm IVPUSH Q15M PRN; Protocol PRN Reason: per Hypoglycemia Standing Ord. Glucose (Glucose Gel 15 Gm Gel..Gram.) 15 gm PO Q15M PRN; Protocol PRN Reason: per Hypoglycemia Standing Ord. Piperacillin Sod/Tazobactam (Sod 3.375 gm/ Sodium Chloride) 50 mls @ 100 mls/hr IV Q6H [facility] Insulin Human Lispro (Insulin Lispro 100 Unit/Ml 3 Ml Vial) 0 unit SUBCUT QIDACHS [facility]; Protocol Multivitamins/Vitamin C (Multivitamin Tablet) 1 tab PO DAILY [facility] Pharmacy Consult (Consult Rx Vancomycin Dosing) 1 each MISCELLANE DAILY [facility] Vitamin D (Cholecalciferol (Vitamin D3) 25 Mcg Tablet) 25 mcg PO DAILY BIN Home Medications ?Medication ?Instructions ?Recorded ?Confirmed ?Last Taken ?Type cholecalciferol (vitamin D3) 25 25 mcg PO DAILY 08/26/24 08/26/24 08/25/24 History mcg (1,000 unit) capsule (Vitamin D3) losartan 100 1 tab PO DAILY 08/26/24 08/26/24 08/25/24 History mg-hydrochlorothiazide 25 mg tablet metformin 1,000 mg tablet 1,000 mg PO BID 08/26/24 08/26/24 08/25/24 History multivitamin (One Daily 1 tab PO DAILY 08/26/24 08/26/24 08/25/24 History Multivitamin tablet) Physical Exam Vital Signs and Narrative: Vital Signs: Last Vital Signs Temp 99.9 F 08/26/24 17:41 Pulse 92 08/26/24 17:41 Resp 13 08/26/24 17:41 BP 107/56 L 08/26/24 17:41 Pulse Ox 92 08/26/24 17:41 O2 Del Method Room Air 08/26/24 17:41 BMI result Body Mass Index 30.7 Gen: in no acute distress HEENT: sclera anicteric, moist mucus membranes Neck: supple Lungs: clear to auscultation bilaterally Heart: regular rate and rhythm, no murmurs Abd: soft, non-tender, non-distended Ext: no edema Skin: warm/well-perfused, tender indurated L buttock medially with erythema but no fluctuance Neuro: alert and oriented x3, no focal findings Psych: appropriate affect Results Labs 08/26/24 12:55 08/26/24 12:55 Labs: Laboratory Results - last 24 hr 08/26/24 08/26/24 08/26/24 12:55 13:51 16:53 MCV 85.2 MCH 29.6 MCHC 34.7 RDW 12.7 Plt Count 385 MPV 9.7 Immature Gran % (Auto) 0.5 H Neut % (Auto) 77.9 H Lymph % (Auto) 9.1 L [place] % (Auto) 11.8 H Eos % (Auto) 0.2 Baso % (Auto) 0.5 Lymph # (Auto) 1.8 [place] # (Auto) 2.4 H Eos # (Auto) 0.0 Baso # (Auto) 0.1 Abs Immat Gran (auto) 0.11 H Absolute Neuts (auto) 15.7 H Absolute Nucleated RBC 0.000 Nucleated RBC % (auto) 0.0 Smear Tech's Comments VERIFIED ESR 83 H Anion Gap 17 Estim Creat Clear Calc 87.4 Estimated GFR > 60 POC Glucose 307 H Random Glucose 335 H Lactic Acid 1.3 Calcium 9.3 D Magnesium 1.9 Total Bilirubin 0.5 AST 81 H ALT 85 H Alkaline Phosphatase 131 H C-Reactive Protein 16.60 H Total Protein 7.9 Albumin 3.9 Urine Color Yellow Urine Appearance Turbid Urine pH 6.0 Ur Specific [place] >= 1.030 H Urine Protein 30 (1+) H Urine Glucose (UA) 100 H Urine Ketones Trace Urine Blood Moderate (2+) H Urine Nitrite Negative Ur Leukocyte Esterase Large (3+) H Urine RBC 0-2 Urine WBC >50 H Urine WBC Clumps Present Ur Squamous Epith Cells 3-5 Urine Bacteria 1+ Hyaline Casts 0-2 Assessment and Plan (1) Sepsis: Status: Acute Plan 64yo M with DM2, HTN, and BPH s/p prostatectomy [[facility] 03/30/23] presenting with worsening L buttock painful lump over the last 2 weeks with associated foul urine, fever, and chills; found to be septic with abscess along bulbous urethra with associated cellulitis of the gluteal/perineal area. sepsis due to urethral abscess and gluteal/perineal cellulitis - admit to telemetry. No discoloration to suggest fasciitis/Roberta's gangrene but will cover broadly with vancomycin, piperacillin-tazobactam, and clindamycin. NPO after midnight and will consult Gen Surg, Urology, and Infectious Disease. Follow BCx + UCx. DM2 with hyperglycemia - check A1c and give correction-dose lispro HTN - hold losartan + HCTZ due to sepsis VTE ppx - enoxaparin dispo - TBD code status - full I anticipate that the patient will stay at least 2 midnights as an inpatient in the hospital due to the above reasons. It is neither reasonable nor safe to care for them in a less acute setting. Total time managing care of this patient today: 50 minutes. Quality Stroke Does the patient have a stroke diagnosis?: No VTE Prior VTE?: No VTE Risk Level:: Medical - moderate - high VTE Device Contraindication: N/A - Device Ordered VTE Drug Contraindication: N/A - Med Ordered
--- NOTE | 2024-08-26 17:51 | PHA.PROG ---
Admission Date/Time: August 26, 2024 16:40 Indication: INTRA ABDOMINAL Weight in k.183 kg Adjusted body weight in Kg: [place] body weight in Kg: Obesity Dosing Indication % IBW: Serum Creatinine - Last 168 Hours 08/26/24 12:55 Creatinine 0.89 Estimated CrCl and GFR - Last 168 Hours 08/26/24 12:55 Estim Creat Clear Calc 87.4 Estimated GFR > 60 Vancomycin Loading Dose: 2000 MG Current Vancomycin Dosing Regimen: 1000 MG Q12H Vancomycin Monitoring using AUC goal of 400 - 600 range with trough as surrogate marker: SCK=978 TROUGH=15.8 Date and Time for next Vancomycin Level to be drawn: 08/27/24 @1300 Pharmacist Comments on Vancomycin Plan: Vancomycin dosing will take advantage of [employer] as a clinical decision support tool that uses Bayesian modeling to calculate individual patient's pharmacokinetic parameters and forecast the patient's drug concentration time course with the target goal AUC 24 range of 400 - 600 mg/L/hr.
[2024-08-26] MEDS: Clindamycin Phosphate/D5W 600 MG/50 ML PIGGYBACK 100 MG IV (18:16)
[2024-08-26 19:21] LABS: Glucose, Whole Blood 272 mg/dL (60-115)
[2024-08-26] MEDS: Piperacillin Sodium/Tazobactam 3.375 GM in 0.9 % Sodium Chloride 50 ML IV (20:08)
[2024-08-26] MEDS: Enoxaparin Sodium 40 MG/0.4 ML SYRINGE SUBCUT (20:09)
[2024-08-26 21:37] LABS: Glucose, Whole Blood 395 mg/dL (60-115)
[2024-08-26] MEDS: Insulin Lispro 100 UNIT/ML 3 ML VIAL SUBCUT (22:44)
[2024-08-26] MEDS: Acetaminophen 325 MG TABLET 650 MG PO (22:46)
--- NOTE | 2024-08-26 22:50 | PC.NURSE ---
Pt aox3 resting at the bedside. Found to be febrile with rectal temp of 102.2 Medicated with Acetaminophen PO as per MAY. Ice packs placed behind the neck and on torso. Only one blanket at bedside. Monitoring is ongoing.
--- NOTE | 2024-08-26 23:54 | PC.NURSE ---
Temp continues to be at 102.2 despite being medicated PO and cold packs applied. [place] text sent to Dr. Middleton. No new orders at this time. Monitoring is ongoing.
[2024-08-27 00:38] VITALS: BP 105/59; PULSE 92; RESP 26; TEMP 38.6; O2SAT 94
[2024-08-27 00:40] LABS: Glucose, Whole Blood 209 mg/dL (60-115)
[2024-08-27] MEDS: Ibuprofen 600 MG TABLET PO (01:20)
[2024-08-27] MEDS: Piperacillin Sodium/Tazobactam 3.375 GM in 0.9 % Sodium Chloride 50 ML IV ×2 (01:20→07:40)
[2024-08-27] MEDS: 0.9 % Sodium Chloride Flush 3 ML SYRINGE IVFLUSH (01:21)
[2024-08-27] MEDS: Clindamycin Phosphate/D5W 600 MG/50 ML PIGGYBACK 100 MG IV ×2 (01:21→09:48)
[2024-08-27] MEDS: vancomycin HCL 1,000 MG in 0.9 % Sodium Chloride 250 ML 270 MG IV (03:20)
[2024-08-27 03:50] LABS: Estimated Average Glucose 246 mg/dL; Hemoglobin A1C 337.1668 umol/L; Hemoglobin A1c % 10.2 % (<6.0); Total Hemoglobin (HGBA1C) 3838.0456 umol/L
[2024-08-27 05:05] LABS: Hematocrit 36.8 % (42.0-52.0); Hemoglobin 13.2 g/dl (14.0-18.0); Mean Corpuscular HGB Conc 35.9 g/dl (31.0-36.0); Mean Corpuscular Hemoglobin 30.2 pg (27.0-33.0); Mean Corpuscular Volume 84.2 fL (80.0-98.0); Mean Platelet Volume 9.3 fL (9.4-12.4); Platelet Count 339 X10*3/uL (160-400); Red Blood Count 4.37 X10*6/uL (4.60-5.80); Red Cell Distribution Width 12.7 % (11.0-16.0); White Blood Count 19.4 X10*3/uL (4.8-10.8)
[2024-08-27 05:07] VITALS: BP 107/67; PULSE 75; RESP 18; TEMP 37.2; O2SAT 95
--- NOTE | 2024-08-27 05:10 | MHC.EDTECH ---
This tech walked pt to bathroom with unsteady gait, almost losing balance when sitting on the toilet. Pt unable to fully hold his urine causing a little pee trail to follow to the bathroom. Pt was brought back to room via wheelchair. Pt able to stand and pivot with assistance. vitals taken at this time. at bedside
--- NOTE | 2024-08-27 05:11 | PC.NURSE ---
Pt reports pain on the left buttocks. Requesting pain med stronger than acetaminophen as pt states it has not been helpful. [place] text sent to Dr. Middleton. No new orders at this time. Monitoring is ongoing.
[2024-08-27 05:14] LABS: Anion Gap 16 (12-20); Blood Urea Nitrogen 18 mg/dL (9-16); Calcium 8.8 mg/dL (8.4-10.2); Carbon Dioxide 19 mmol/L (22-29); Chloride 108 mmol/L (96-108); Estimated Glomerular Filt Rate > 60; Glucose Random 101 mg/dL (60-115); Potassium 3.8 mmol/L (3.3-5.1); Sodium 139 mmol/L (135-145)
[2024-08-27] MEDS: Ketorolac Tromethamine 30 MG/ML VIAL IVPUSH (05:27)
[2024-08-27 07:12] LABS: Glucose, Whole Blood 122 mg/dL (60-115)
[2024-08-27] MEDS: Cholecalciferol (Vitamin D3) 25 MCG TABLET PO (07:39)
[2024-08-27] MEDS: Multivitamin TABLET 1 TAB PO (07:40)
[2024-08-27 07:47] VITALS: BP 114/61; PULSE 85; RESP 17; TEMP 36.9; O2SAT 95
--- NOTE | 2024-08-27 08:28 | P.PNIM_ITS ---
Subjective Subjective Date of Service: 08/27/24 Interval History: Reports pain in the L buttock Afebrile, still meeting SIRS critieria but afebrile Review of Systems Review of Systems: Yes all other systems are reviewed and are negative Physical Exam 2 Vital Signs: Vital Signs: Last Vital Signs Temp 98.5 F 08/27/24 07:47 Pulse 85 08/27/24 07:47 Resp 17 08/27/24 07:47 BP 114/61 08/27/24 07:47 Pulse Ox 95 08/27/24 07:47 O2 Del Method Room Air 08/27/24 07:47 BMI result Body Mass Index 30.7 Gen: in no acute distress HEENT: sclera anicteric, moist mucus membranes Neck: supple Lungs: clear to auscultation bilaterally Heart: regular rate and rhythm, no murmurs Abd: soft, non-tender, non-distended Ext: no edema Skin: warm/well-perfused, tender indurated L buttock medially with erythema but no fluctuance Neuro: alert and oriented x3, no focal findings Psych: appropriate affect Objective Data Active Medications Acetaminophen (Acetaminophen 325 Mg Tablet) 975 mg PO Q6H PRN PRN Reason: Pain, Mild 1-3,fever,headache Calcium Carbonate (Calcium Carbonate 750 Mg Tab.Chew) 750 mg PO Q4H PRN PRN Reason: Heartburn Dextrose (Dextrose 50 % 25 Gm/50 Ml Syringe) 25 gm IVPUSH Q15M PRN; Protocol PRN Reason: per Hypoglycemia Standing Ord. Enoxaparin Sodium (Enoxaparin Sodium 40 Mg/0.4 Ml Syringe) 40 mg SUBCUT Q24H [facility] Last Admin: 08/26/24 20:09 Dose: 40 mg Documented By: PAYTON Glucose (Glucose Gel 15 Gm Gel..Gram.) 15 gm PO Q15M PRN; Protocol PRN Reason: per Hypoglycemia Standing Ord. Piperacillin Sod/Tazobactam (Sod 3.375 gm/ Sodium Chloride) 50 mls @ 100 mls/hr IV Q6H [facility] Last Infusion: 08/27/24 08:23 Dose: Infused Documented By: GINNY Vancomycin HCl 1,000 mg/ (Sodium Chloride) 270 mls @ 270 mls/hr IV Q12H [facility] Last Infusion: 08/27/24 04:20 Dose: Infused Documented By: PAYTON Clindamycin Phosphate (Cleocin) 600 mg in 50 mls @ 100 mls/hr IV Q8H [facility] Last Infusion: 08/27/24 01:51 Dose: Infused Documented By: PAYTON Insulin Human Lispro (Insulin Lispro 100 Unit/Ml 3 Ml Vial) 0 unit SUBCUT QIDACHS [facility]; Protocol Last Admin: 08/27/24 07:16 Dose: Not Given Documented By: ALICE Non-Admin Reason: No Insulin Coverage Magnesium Hydroxide (Milk Of Magnesia 30 Ml Oral.Susp) 30 ml PO DAILY PRN PRN Reason: Constipation Melatonin (Melatonin 3 Mg Tablet) 6 mg PO BEDTIME PRN PRN Reason: Insomnia Multivitamins/Vitamin C (Multivitamin Tablet) 1 tab PO DAILY [facility] Last Admin: 08/27/24 07:40 Dose: 1 tab Documented By: GINNY Ondansetron HCl (Ondansetron Hcl 4 Mg/2 Ml Vial) 4 mg IVPUSH Q4H PRN PRN Reason: Nausea and Vomiting Pharmacy Consult (Consult Rx Vancomycin Dosing) 1 each MISCELLANE DAILY [facility] Sodium Chloride (0.9 % Sodium Chloride Flush 3 Ml Syringe) 3 ml IVFLUSH QSHIFT [facility] Last Admin: 08/27/24 07:34 Dose: Not Given Documented By: GINNY Non-Admin Reason: Patient Asleep Vitamin D (Cholecalciferol (Vitamin D3) 25 Mcg Tablet) 25 mcg PO DAILY [facility] Last Admin: 08/27/24 07:39 Dose: 25 mcg Documented By: GINNY Labs 08/27/24 04:59 08/27/24 04:59 Labs: Laboratory Results - last 24 hr 08/26/24 08/26/24 08/26/24 12:55 13:51 16:53 MCV 85.2 MCH 29.6 MCHC 34.7 RDW 12.7 Plt Count 385 MPV 9.7 Immature Gran % (Auto) 0.5 H Neut % (Auto) 77.9 H Lymph % (Auto) 9.1 L [place] % (Auto) 11.8 H Eos % (Auto) 0.2 Baso % (Auto) 0.5 Lymph # (Auto) 1.8 [place] # (Auto) 2.4 H Eos # (Auto) 0.0 Baso # (Auto) 0.1 Abs Immat Gran (auto) 0.11 H Absolute Neuts (auto) 15.7 H Absolute Nucleated RBC 0.000 Nucleated RBC % (auto) 0.0 Smear Tech's Comments VERIFIED ESR 83 H Anion Gap 17 Estim Creat Clear Calc 87.4 Estimated GFR > 60 POC Glucose 307 H Random Glucose 335 H Estimat Average Glucose 246 Hemoglobin A1c % 10.2 H Lactic Acid 1.3 Calcium 9.3 D Magnesium 1.9 Total Bilirubin 0.5 AST 81 H ALT 85 H Alkaline Phosphatase 131 H C-Reactive Protein 16.60 H Total Protein 7.9 Albumin 3.9 Urine Color Yellow Urine Appearance Turbid Urine pH 6.0 Ur Specific [place] >= 1.030 H Urine Protein 30 (1+) H Urine Glucose (UA) 100 H Urine Ketones Trace Urine Blood Moderate (2+) H Urine Nitrite Negative Ur Leukocyte Esterase Large (3+) H Urine RBC 0-2 Urine WBC >50 H Urine WBC Clumps Present Ur Squamous Epith Cells 3-5 Urine Bacteria 1+ Hyaline Casts 0-2 08/26/24 08/26/24 08/27/24 17:33 21:32 00:35 MCV MCH MCHC RDW Plt Count MPV Immature Gran % (Auto) Neut % (Auto) Lymph % (Auto) [place] % (Auto) Eos % (Auto) Baso % (Auto) Lymph # (Auto) [place] # (Auto) Eos # (Auto) Baso # (Auto) Abs Immat Gran (auto) Absolute Neuts (auto) Absolute Nucleated RBC Nucleated RBC % (auto) Smear Tech's Comments ESR Anion Gap Estim Creat Clear Calc Estimated GFR POC Glucose 272 H 395 H* 209 H Random Glucose Estimat Average Glucose Hemoglobin A1c % Lactic Acid Calcium Magnesium Total Bilirubin AST ALT Alkaline Phosphatase C-Reactive Protein Total Protein Albumin Urine Color Urine Appearance Urine pH Ur Specific [place] Urine Protein Urine Glucose (UA) Urine Ketones Urine Blood Urine Nitrite Ur Leukocyte Esterase Urine RBC Urine WBC Urine WBC Clumps Ur Squamous Epith Cells Urine Bacteria Hyaline Casts 08/27/24 08/27/24 04:59 07:09 MCV 84.2 MCH 30.2 MCHC 35.9 RDW 12.7 Plt Count 339 MPV 9.3 L Immature Gran % (Auto) Neut % (Auto) Lymph % (Auto) [place] % (Auto) Eos % (Auto) Baso % (Auto) Lymph # (Auto) [place] # (Auto) Eos # (Auto) Baso # (Auto) Abs Immat Gran (auto) Absolute Neuts (auto) Absolute Nucleated RBC 0.000 Nucleated RBC % (auto) 0.0 Smear Tech's Comments ESR Anion Gap 16 Estim Creat Clear Calc 96.0 Estimated GFR > 60 POC Glucose 122 H Random Glucose 101 Estimat Average Glucose Hemoglobin A1c % Lactic Acid Calcium 8.8 Magnesium Total Bilirubin AST ALT Alkaline Phosphatase C-Reactive Protein Total Protein Albumin Urine Color Urine Appearance Urine pH Ur Specific [place] Urine Protein Urine Glucose (UA) Urine Ketones Urine Blood Urine Nitrite Ur Leukocyte Esterase Urine RBC Urine WBC Urine WBC Clumps Ur Squamous Epith Cells Urine Bacteria Hyaline Casts Assessment and Plan Plan 64yo M with DM2, HTN, and BPH s/p prostatectomy [[facility] 03/30/23] presenting with worsening L buttock painful lump over the last 2 weeks with associated foul urine, fever, and chills; found to be septic with abscess along bulbous urethra with associated cellulitis of the gluteal/perineal area. sepsis due to urethral abscess and gluteal/perineal cellulitis - admit to telemetry. No discoloration to suggest fasciitis/Roberta's gangrene but will cover broadly with vancomycin, piperacillin-tazobactam, and clindamycin. NPO after midnight and will consult Gen Surg, Urology, and Infectious Disease. Follow BCx + UCx. DM2 with hyperglycemia - check A1c and give correction-dose lispro HTN - hold losartan + HCTZ due to sepsis VTE ppx - enoxaparin dispo - TBD code status - full Ongoing inpt stay due to cellulitis L buttock with sepsis requiring IV abx, monitoring of hemodynamics as well as monitoring of cultures Quality Stroke Does the patient have a stroke diagnosis?: No VTE Prior VTE?: No VTE Risk Level:: Medical - moderate - high VTE Device Contraindication: N/A - Device Ordered VTE Drug Contraindication: N/A - Med Ordered
[2024-08-27 09:33] VITALS: BP 139/70; PULSE 89; RESP 27; TEMP 37.1; O2SAT 94
[2024-08-27 09:43] LABS: Glucose, Whole Blood 140 mg/dL (60-115)
[2024-08-27 11:06] LABS: Vancomycin Random 14.2 mcg/mL (15-20)
[2024-08-27 11:14] LABS: Glucose, Whole Blood 135 mg/dL (60-115)
--- NOTE | 2024-08-27 11:29 | PM.UROCN ---
History of Present Illness Consult details Consult date: 08/27/24 Narrative: 64yo M with DM2, HTN, and BPH reported s/p robotic-assisted laparoscopic simple prostatectomy [[facility] 03/30/23] has had recurrent UTI's, he presented to ED with complaints of worsening painful lump on the L inner buttock over the last 2 weeks, malodorous urine, fever, and chills. On IV Abx, Clinically improved today, states he feels better. He has been urinating without difficulty, on exam no urethral discharge able to be expelled with manipulation, without tenderness, prostate non boggy. CT pelvis - Abscess present along the bulbous urethra on the left measuring in total approximately 4.1 x 0.9 x 1.7 cm. There is extensive adjacent subcutaneous edema extending along the medial aspect of the left thigh and left gluteal region. No subcutaneous gas. Review of Systems Review of Systems: Yes all other systems are reviewed and are negative Constitutional: Constitutional: Reports no additional constitutional complaints Eyes: Eyes: Reports no additional eye complaints ENT: Reports system reviewed and no additional complaints, except as documented Cardiovascular: Cardiovascular: Reports no additional cardiovascular complaints Respiratory: Respiratory: Reports no additional respiratory complaints Gastrointestinal: Gastrointestinal: Reports no additional gastrointestinal complaints Genitourinary: Genitourinary: Reports as per HPI Musculoskeletal: Musculoskeletal: Reports no additional musculoskeletal complaints Integumentary/Breasts: Skin/Breast: Reports system reviewed and no additional complaints, except as docu Neurologic: Reports system reviewed and no additional complaints, except as documented Psychiatric: Psychiatric: Reports no additional psychiatric complaints Endocrine: Endocrine: Reports no additional endocrine complaints Hematologic/Lymphatic: Hematologic/Lymphatic: Reports no additional hematologic/lymphatic complaints Allergic/Immunologic: Allergic/Immunologic: Reports no additional allergic/immunologic complaints [facility] Social History Social History Alcohol intake: never Patient Tobacco Use Status: Never used Tobacco Smoked in Last 30 Days: No Use of substances other than those prescribed or required for medical reasons: No Advance Directives: No Advance Directives Information Provided: Yes Nutrition Risks: No Nutritional Risk Meds Allergies Allergy/AdvReac Type Severity Reaction Status Date / Time lisinopril Allergy Unknown Verified 08/26/24 12:24 Active Medications: Current Medications Acetaminophen (Acetaminophen 325 Mg Tablet) 975 mg PO Q6H PRN PRN Reason: Pain, Mild 1-3,fever,headache Calcium Carbonate (Calcium Carbonate 750 Mg Tab.Chew) 750 mg PO Q4H PRN PRN Reason: Heartburn Dextrose (Dextrose 50 % 25 Gm/50 Ml Syringe) 25 gm IVPUSH Q15M PRN; Protocol PRN Reason: per Hypoglycemia Standing Ord. Enoxaparin Sodium (Enoxaparin Sodium 40 Mg/0.4 Ml Syringe) 40 mg SUBCUT Q24H [facility] Last Admin: 08/26/24 20:09 Dose: 40 mg Glucose (Glucose Gel 15 Gm Gel..Gram.) 15 gm PO Q15M PRN; Protocol PRN Reason: per Hypoglycemia Standing Ord. Piperacillin Sod/Tazobactam (Sod 3.375 gm/ Sodium Chloride) 50 mls @ 100 mls/hr IV Q6H [facility] Last Infusion: 08/27/24 08:23 Dose: Infused Vancomycin HCl 1,000 mg/ (Sodium Chloride) 270 mls @ 270 mls/hr IV Q12H [facility] Last Infusion: 08/27/24 04:20 Dose: Infused Clindamycin Phosphate (Cleocin) 600 mg in 50 mls @ 100 mls/hr IV Q8H [facility] Last Infusion: 08/27/24 11:01 Dose: Infused Insulin Human Lispro (Insulin Lispro 100 Unit/Ml 3 Ml Vial) 0 unit SUBCUT QIDACHS [facility]; Protocol Last Admin: 08/27/24 11:17 Dose: Not Given Magnesium Hydroxide (Milk Of Magnesia 30 Ml Oral.Susp) 30 ml PO DAILY PRN PRN Reason: Constipation Melatonin (Melatonin 3 Mg Tablet) 6 mg PO BEDTIME PRN PRN Reason: Insomnia Multivitamins/Vitamin C (Multivitamin Tablet) 1 tab PO DAILY [facility] Last Admin: 08/27/24 07:40 Dose: 1 tab Ondansetron HCl (Ondansetron Hcl 4 Mg/2 Ml Vial) 4 mg IVPUSH Q4H PRN PRN Reason: Nausea and Vomiting Pharmacy Consult (Consult Rx Vancomycin Dosing) 1 each MISCELLANE DAILY [facility] Sodium Chloride (0.9 % Sodium Chloride Flush 3 Ml Syringe) 3 ml IVFLUSH QSHIFT [facility] Last Admin: 08/27/24 07:34 Dose: Not Given Vitamin D (Cholecalciferol (Vitamin D3) 25 Mcg Tablet) 25 mcg PO DAILY [facility] Last Admin: 08/27/24 07:39 Dose: 25 mcg Home Medications ?Medication ?Instructions ?Recorded ?Confirmed ?Last Taken ?Type cholecalciferol (vitamin D3) 25 25 mcg PO DAILY 08/26/24 08/26/24 08/25/24 History mcg (1,000 unit) capsule (Vitamin D3) losartan 100 1 tab PO DAILY 08/26/24 08/26/24 08/25/24 History mg-hydrochlorothiazide 25 mg tablet metformin 1,000 mg tablet 1,000 mg PO BID 08/26/24 08/26/24 08/25/24 History multivitamin (One Daily 1 tab PO DAILY 08/26/24 08/26/24 08/25/24 History Multivitamin tablet) Physical Exam Vital Signs: Vital Signs: Last Vital Signs Temp 98.7 F 08/27/24 09:33 Pulse 89 08/27/24 09:33 Resp 27 H 08/27/24 09:33 BP 139/70 08/27/24 09:33 Pulse Ox 94 08/27/24 09:33 O2 Del Method Room Air 08/27/24 09:33 BMI result Body Mass Index 30.7 Const: General: healthy appearing, no acute distress and well developed Orientation/consciousness: patient oriented x3 HEENT: Head: Yes normocephalic and Yes atraumatic Eyes: Conjunctivae: conjunctivae normal Neck: Neck: Yes normal visual inspection Chest: Chest palpation & inspection: normal inspection of the chest Resp: Effort & Inspection: normal respiratory effort GI: Inspection: Yes normal to inspection : Other: no urethral discharge able to be expelled with manipulation, prostate, smooth, non boggy. Scrotum: scrotum normal Neuro: General: patient oriented x3 Psych: Appearance: grossly normal Affect: normal affect Results Labs 08/27/24 04:59 08/27/24 04:59 Labs: Abnormal lab results 08/26/24 08/26/24 08/26/24 Range/Units 12:55 13:51 16:53 WBC 20.2 H (4.8-10.8) X10*3/uL RBC (4.60-5.80) X10*6/uL Hgb (14.0-18.0) g/dl Hct (42.0-52.0) % MPV (9.4-12.4) fL Immature Gran % (Auto) 0.5 H (0.0-0.4) % Neut % (Auto) 77.9 H (45-73) % Lymph % (Auto) 9.1 L (20-40) % [place] % (Auto) 11.8 H (2-11) % [place] # (Auto) 2.4 H (0.1-1.2) X10*3/uL Abs Immat Gran (auto) 0.11 H (0.00-0.03) X10*3/uL Absolute Neuts (auto) 15.7 H (2.0-8.3) x10*3/uL ESR 83 H (0-15) MM/HR Sodium 131 L (135-145) mmol/L Carbon Dioxide 19 L (22-29) mmol/L BUN 24 H (9-16) mg/dL POC Glucose 307 H (60-115) mg/dL Random Glucose 335 H (60-115) mg/dL Hemoglobin A1c % 10.2 H (<6.0) % AST 81 H (5-37) U/L ALT 85 H (0-40) U/L Alkaline Phosphatase 131 H (39-117) U/L C-Reactive Protein 16.60 H (< or = 0.50) mg/dL Ur Specific [place] >= 1.030 H (1.005-1.025) Urine Protein 30 (1+) H (Neg-Trace) mg/dL Urine Glucose (UA) 100 H (Negative) mg/dL Urine Blood Moderate (2+) H (Negative) Ur Leukocyte Esterase Large (3+) H (Negative) Urine WBC >50 H (0-5) /HPF Random Vancomycin (15-20) mcg/mL 08/26/24 08/26/24 08/27/24 Range/Units 17:33 21:32 00:35 WBC (4.8-10.8) X10*3/uL RBC (4.60-5.80) X10*6/uL Hgb (14.0-18.0) g/dl Hct (42.0-52.0) % MPV (9.4-12.4) fL Immature Gran % (Auto) (0.0-0.4) % Neut % (Auto) (45-73) % Lymph % (Auto) (20-40) % [place] % (Auto) (2-11) % [place] # (Auto) (0.1-1.2) X10*3/uL Abs Immat Gran (auto) (0.00-0.03) X10*3/uL Absolute Neuts (auto) (2.0-8.3) x10*3/uL ESR (0-15) MM/HR Sodium (135-145) mmol/L Carbon Dioxide (22-29) mmol/L BUN (9-16) mg/dL POC Glucose 272 H 395 H* 209 H (60-115) mg/dL Random Glucose (60-115) mg/dL Hemoglobin A1c % (<6.0) % AST (5-37) U/L ALT (0-40) U/L Alkaline Phosphatase (39-117) U/L C-Reactive Protein (< or = 0.50) mg/dL Ur Specific [place] (1.005-1.025) Urine Protein (Neg-Trace) mg/dL Urine Glucose (UA) (Negative) mg/dL Urine Blood (Negative) Ur Leukocyte Esterase (Negative) Urine WBC (0-5) /HPF Random Vancomycin (15-20) mcg/mL 08/27/24 08/27/24 08/27/24 Range/Units 04:59 07:09 09:32 WBC 19.4 H (4.8-10.8) X10*3/uL RBC 4.37 L (4.60-5.80) X10*6/uL Hgb 13.2 L (14.0-18.0) g/dl Hct 36.8 L (42.0-52.0) % MPV 9.3 L (9.4-12.4) fL Immature Gran % (Auto) (0.0-0.4) % Neut % (Auto) (45-73) % Lymph % (Auto) (20-40) % [place] % (Auto) (2-11) % [place] # (Auto) (0.1-1.2) X10*3/uL Abs Immat Gran (auto) (0.00-0.03) X10*3/uL Absolute Neuts (auto) (2.0-8.3) x10*3/uL ESR (0-15) MM/HR Sodium (135-145) mmol/L Carbon Dioxide 19 L (22-29) mmol/L BUN 18 H (9-16) mg/dL POC Glucose 122 H 140 H (60-115) mg/dL Random Glucose (60-115) mg/dL Hemoglobin A1c % (<6.0) % AST (5-37) U/L ALT (0-40) U/L Alkaline Phosphatase (39-117) U/L C-Reactive Protein (< or = 0.50) mg/dL Ur Specific [place] (1.005-1.025) Urine Protein (Neg-Trace) mg/dL Urine Glucose (UA) (Negative) mg/dL Urine Blood (Negative) Ur Leukocyte Esterase (Negative) Urine WBC (0-5) /HPF Random Vancomycin (15-20) mcg/mL 08/27/24 08/27/24 Range/Units 10:49 11:10 WBC (4.8-10.8) X10*3/uL RBC (4.60-5.80) X10*6/uL Hgb (14.0-18.0) g/dl Hct (42.0-52.0) % MPV (9.4-12.4) fL Immature Gran % (Auto) (0.0-0.4) % Neut % (Auto) (45-73) % Lymph % (Auto) (20-40) % [place] % (Auto) (2-11) % [place] # (Auto) (0.1-1.2) X10*3/uL Abs Immat Gran (auto) (0.00-0.03) X10*3/uL Absolute Neuts (auto) (2.0-8.3) x10*3/uL ESR (0-15) MM/HR Sodium (135-145) mmol/L Carbon Dioxide (22-29) mmol/L BUN (9-16) mg/dL POC Glucose 135 H (60-115) mg/dL Random Glucose (60-115) mg/dL Hemoglobin A1c % (<6.0) % AST (5-37) U/L ALT (0-40) U/L Alkaline Phosphatase (39-117) U/L C-Reactive Protein (< or = 0.50) mg/dL Ur Specific [place] (1.005-1.025) Urine Protein (Neg-Trace) mg/dL Urine Glucose (UA) (Negative) mg/dL Urine Blood (Negative) Ur Leukocyte Esterase (Negative) Urine WBC (0-5) /HPF Random Vancomycin 14.2 L (15-20) mcg/mL Short CBC 08/26/24 08/27/24 Range/Units 12:55 04:59 WBC 20.2 H 19.4 H (4.8-10.8) X10*3/uL Hgb 14.6 13.2 L (14.0-18.0) g/dl Hct 42.1 36.8 L (42.0-52.0) % Plt Count 385 339 (160-400) X10*3/uL BMP 08/26/24 08/27/24 12:55 04:59 Sodium 131 L 139 Potassium 4.2 3.8 Chloride 99 108 Carbon Dioxide 19 L 19 L BUN 24 H 18 H Creatinine 0.89 0.81 Calcium 9.3 D 8.8 Liver Function 08/26/24 Range/Units 12:55 Total Bilirubin 0.5 (0.0-1.0) mg/dL AST 81 H (5-37) U/L ALT 85 H (0-40) U/L Alkaline Phosphatase 131 H (39-117) U/L Albumin 3.9 (3.5-5.0) g/dL Urine 08/26/24 Range/Units 16:53 Urine Color Yellow Urine Appearance Turbid Urine pH 6.0 (5.0-9.0) Ur Specific [place] >= 1.030 H (1.005-1.025) Urine Protein 30 (1+) H (Neg-Trace) mg/dL Urine Glucose (UA) 100 H (Negative) mg/dL Imaging Additional studies: Date of Service: 08/26/24 CLINICAL HISTORY: buttock cellulitis to perineum ?[place] vs absce CT pelvisv with IV contrast. COMPARISON: None FINDINGS: Diffuse subcutaneous edema along the left gluteal region along the gluteal cleft extending inferiorly along the medial aspect of the left thigh. Organizing fluid collection present along bulbous urethra on the left measuring in total approximately 4.1 x 0.9 x 1.7 cm (series 3, image 367). No subcutaneous gas. No foreign body identified. Asymmetric smooth thickening of the mucosa of the urinary bladder along the proximal aspect (best seen on sagittal and coronal reformats series 4, image 50 and series 5, image 88). No free fluid present within the pelvis. Several enlarged left inguinal lymph nodes. For example left inguinal lymph node measuring 2.9 x 2.0 cm (series 3, image 261). Multiple prominent retroperitoneal/periaortic lymph nodes. Partially visualized aorto bi-iliac stent bridging the infrarenal abdominal aortic aneurysm measuring minimally up to 5.2 cm. No evidence of endoleak. Moderate spondylosis at L5-S1. No acute fracture or suspicious bone lesion. IMPRESSION: 1. Abscess present along the bulbous urethra on the left measuring in total approximately 4.1 x 0.9 x 1.7 cm. There is extensive adjacent subcutaneous edema extending along the medial aspect of the left thigh and left gluteal region. No subcutaneous gas. 2. Multiple prominent and enlarged left inguinal lymph nodes. 3. Indeterminate asymmetric thickening of the mucosa of the urinary bladder along the most proximal aspect. Recommend direct visualization for further characterization. Assessment and Plan (1) BPH loc w urin obs/LUTS: Status: Acute (2) Urinary tract infection: Status: Inactive Plan CT pelvis- urethral collection vs urethral diverticulum, clinically the the patient is voiding abe urine, no urethral discharge able to be expelled with manipulation, prostate non boggy. He will need outpatient follow up/with cystoscopy. If patient does not clinically continue to improve he will need reevaluation/assessment by . Recommend Flomax 0.4 mg daily and proscar 5 mg daily while inpatient and scripts on discharge. Procedures Date of Service Date of Service: 08/27/24
[2024-08-27 11:52] VITALS: BP 121/58; PULSE 101; RESP 16; TEMP 37.2; O2SAT 94
--- NOTE | 2024-08-27 12:08 | PM.PNGS ---
Subjective Subjective Date of Service: 08/28/24 Interval history: Says he feels better States that he has less pain on the buttock and perineum Does describe burning with urination Physical Exam Vital Signs: Vital Signs: Last Vital Signs Temp 98.9 F 08/27/24 11:52 Pulse 101 H 08/27/24 11:52 Resp 16 08/27/24 11:52 BP 121/58 L 08/27/24 11:52 Pulse Ox 94 08/27/24 11:52 O2 Del Method Room Air 08/27/24 11:52 BMI result Body Mass Index 30.7 Const: General: comfortable and no acute distress Resp: Effort & Inspection: normal respiratory effort Cardio: Rhythm: regular rhythm GI: Palpation (GI): Soft to palpation, not firm, nontender and no guarding Back/Spine/Pelvis: Other: Induration on the buttock towards the perineum with a obvious fluctuance, less tender compared to yesterday Objective Data Active Medications Acetaminophen (Acetaminophen 325 Mg Tablet) 975 mg PO Q6H PRN PRN Reason: Pain, Mild 1-3,fever,headache Calcium Carbonate (Calcium Carbonate 750 Mg Tab.Chew) 750 mg PO Q4H PRN PRN Reason: Heartburn Dextrose (Dextrose 50 % 25 Gm/50 Ml Syringe) 25 gm IVPUSH Q15M PRN; Protocol PRN Reason: per Hypoglycemia Standing Ord. Enoxaparin Sodium (Enoxaparin Sodium 40 Mg/0.4 Ml Syringe) 40 mg SUBCUT Q24H [facility] Last Admin: 08/26/24 20:09 Dose: 40 mg Documented By: PAYTON Glucose (Glucose Gel 15 Gm Gel..Gram.) 15 gm PO Q15M PRN; Protocol PRN Reason: per Hypoglycemia Standing Ord. Piperacillin Sod/Tazobactam (Sod 3.375 gm/ Sodium Chloride) 50 mls @ 100 mls/hr IV Q6H [facility] Last Infusion: 08/27/24 08:23 Dose: Infused Documented By: GINNY Vancomycin HCl 1,000 mg/ (Sodium Chloride) 270 mls @ 270 mls/hr IV Q12H [facility] Last Infusion: 08/27/24 04:20 Dose: Infused Documented By: PAYTON Clindamycin Phosphate (Cleocin) 600 mg in 50 mls @ 100 mls/hr IV Q8H [facility] Last Infusion: 08/27/24 11:01 Dose: Infused Documented By: ALICE Insulin Human Lispro (Insulin Lispro 100 Unit/Ml 3 Ml Vial) 0 unit SUBCUT QIDACHS [facility]; Protocol Last Admin: 08/27/24 11:17 Dose: Not Given Documented By: ALICE Non-Admin Reason: No Insulin Coverage Magnesium Hydroxide (Milk Of Magnesia 30 Ml Oral.Susp) 30 ml PO DAILY PRN PRN Reason: Constipation Melatonin (Melatonin 3 Mg Tablet) 6 mg PO BEDTIME PRN PRN Reason: Insomnia Multivitamins/Vitamin C (Multivitamin Tablet) 1 tab PO DAILY [facility] Last Admin: 08/27/24 07:40 Dose: 1 tab Documented By: GINNY Ondansetron HCl (Ondansetron Hcl 4 Mg/2 Ml Vial) 4 mg IVPUSH Q4H PRN PRN Reason: Nausea and Vomiting Pharmacy Consult (Consult Rx Vancomycin Dosing) 1 each MISCELLANE DAILY [facility] Sodium Chloride (0.9 % Sodium Chloride Flush 3 Ml Syringe) 3 ml IVFLUSH QSHIFT [facility] Last Admin: 08/27/24 07:34 Dose: Not Given Documented By: GINNY Non-Admin Reason: Patient Asleep Vitamin D (Cholecalciferol (Vitamin D3) 25 Mcg Tablet) 25 mcg PO DAILY [facility] Last Admin: 08/27/24 07:39 Dose: 25 mcg Documented By: GINNY Labs 08/27/24 04:59 08/27/24 04:59 Labs: Laboratory Results - last 24 hr 08/26/24 08/26/24 08/26/24 12:55 13:51 16:53 MCV 85.2 MCH 29.6 MCHC 34.7 RDW 12.7 Plt Count 385 MPV 9.7 Immature Gran % (Auto) 0.5 H Neut % (Auto) 77.9 H Lymph % (Auto) 9.1 L [place] % (Auto) 11.8 H Eos % (Auto) 0.2 Baso % (Auto) 0.5 Lymph # (Auto) 1.8 [place] # (Auto) 2.4 H Eos # (Auto) 0.0 Baso # (Auto) 0.1 Abs Immat Gran (auto) 0.11 H Absolute Neuts (auto) 15.7 H Absolute Nucleated RBC 0.000 Nucleated RBC % (auto) 0.0 Smear Tech's Comments VERIFIED ESR 83 H Anion Gap 17 Estim Creat Clear Calc 87.4 Estimated GFR > 60 POC Glucose 307 H Random Glucose 335 H Estimat Average Glucose 246 Hemoglobin A1c % 10.2 H Lactic Acid 1.3 Calcium 9.3 D Magnesium 1.9 Total Bilirubin 0.5 AST 81 H ALT 85 H Alkaline Phosphatase 131 H C-Reactive Protein 16.60 H Total Protein 7.9 Albumin 3.9 Urine Color Yellow Urine Appearance Turbid Urine pH 6.0 Ur Specific [place] >= 1.030 H Urine Protein 30 (1+) H Urine Glucose (UA) 100 H Urine Ketones Trace Urine Blood Moderate (2+) H Urine Nitrite Negative Ur Leukocyte Esterase Large (3+) H Urine RBC 0-2 Urine WBC >50 H Urine WBC Clumps Present Ur Squamous Epith Cells 3-5 Urine Bacteria 1+ Hyaline Casts 0-2 Random Vancomycin 08/26/24 08/26/24 08/27/24 17:33 21:32 00:35 MCV MCH MCHC RDW Plt Count MPV Immature Gran % (Auto) Neut % (Auto) Lymph % (Auto) [place] % (Auto) Eos % (Auto) Baso % (Auto) Lymph # (Auto) [place] # (Auto) Eos # (Auto) Baso # (Auto) Abs Immat Gran (auto) Absolute Neuts (auto) Absolute Nucleated RBC Nucleated RBC % (auto) Smear Tech's Comments ESR Anion Gap Estim Creat Clear Calc Estimated GFR POC Glucose 272 H 395 H* 209 H Random Glucose Estimat Average Glucose Hemoglobin A1c % Lactic Acid Calcium Magnesium Total Bilirubin AST ALT Alkaline Phosphatase C-Reactive Protein Total Protein Albumin Urine Color Urine Appearance Urine pH Ur Specific [place] Urine Protein Urine Glucose (UA) Urine Ketones Urine Blood Urine Nitrite Ur Leukocyte Esterase Urine RBC Urine WBC Urine WBC Clumps Ur Squamous Epith Cells Urine Bacteria Hyaline Casts Random Vancomycin 08/27/24 08/27/24 08/27/24 04:59 07:09 09:32 MCV 84.2 MCH 30.2 MCHC 35.9 RDW 12.7 Plt Count 339 MPV 9.3 L Immature Gran % (Auto) Neut % (Auto) Lymph % (Auto) [place] % (Auto) Eos % (Auto) Baso % (Auto) Lymph # (Auto) [place] # (Auto) Eos # (Auto) Baso # (Auto) Abs Immat Gran (auto) Absolute Neuts (auto) Absolute Nucleated RBC 0.000 Nucleated RBC % (auto) 0.0 Smear Tech's Comments ESR Anion Gap 16 Estim Creat Clear Calc 96.0 Estimated GFR > 60 POC Glucose 122 H 140 H Random Glucose 101 Estimat Average Glucose Hemoglobin A1c % Lactic Acid Calcium 8.8 Magnesium Total Bilirubin AST ALT Alkaline Phosphatase C-Reactive Protein Total Protein Albumin Urine Color Urine Appearance Urine pH Ur Specific [place] Urine Protein Urine Glucose (UA) Urine Ketones Urine Blood Urine Nitrite Ur Leukocyte Esterase Urine RBC Urine WBC Urine WBC Clumps Ur Squamous Epith Cells Urine Bacteria Hyaline Casts Random Vancomycin 08/27/24 08/27/24 10:49 11:10 MCV MCH MCHC RDW Plt Count MPV Immature Gran % (Auto) Neut % (Auto) Lymph % (Auto) [place] % (Auto) Eos % (Auto) Baso % (Auto) Lymph # (Auto) [place] # (Auto) Eos # (Auto) Baso # (Auto) Abs Immat Gran (auto) Absolute Neuts (auto) Absolute Nucleated RBC Nucleated RBC % (auto) Smear Tech's Comments ESR Anion Gap Estim Creat Clear Calc Estimated GFR POC Glucose 135 H Random Glucose Estimat Average Glucose Hemoglobin A1c % Lactic Acid Calcium Magnesium Total Bilirubin AST ALT Alkaline Phosphatase C-Reactive Protein Total Protein Albumin Urine Color Urine Appearance Urine pH Ur Specific [place] Urine Protein Urine Glucose (UA) Urine Ketones Urine Blood Urine Nitrite Ur Leukocyte Esterase Urine RBC Urine WBC Urine WBC Clumps Ur Squamous Epith Cells Urine Bacteria Hyaline Casts Random Vancomycin 14.2 L Procedures Date of Service Date of Service: 08/28/24 Progress Note: A&P Assessment and plan (1) Cellulitis of buttock, left: Status: Acute Assessment and Plan: He has inflammatory process in the subcutaneous fat on the left buttock towards the perineum. His CAT scan suggest that the likely etiology is a bulbous urethral abscess I have discussed this with the urologist and she says that this will be managed with IV antibiotics She says that she does not think that the patient needs intervention by Urology currently as there is no pus draining from the urethra itself I would recommend continue with IV antibiotics Explained the plan to the patient and his at bedside Time Spent With Patient Time: Total time managing care of this patient today ____ minutes. Quality Stroke Does the patient have a stroke diagnosis?: No VTE Prior VTE?: No VTE Risk Level:: Medical - moderate - high VTE Device Contraindication: N/A - Device Ordered VTE Drug Contraindication: N/A - Med Ordered
--- NOTE | 2024-08-27 13:25 | MHC.CM.PN ---
pt left ama
--- NOTE | 2024-08-27 13:37 | PM.DS ---
DS: Providers Provider Date of Service: 08/27/24 Date of admission: 08/26/24 16:40 Date of discharge: 08/27/24 Primary care physician: Emily Munson MD Attending physician on admission: Raisa Solorzano Consults: 08/26/24 17:40 Consult to Urology Routine Consulting Provider: [facility] [place] [facility] Reason for consultation: Sepsis urethral abscess 08/26/24 18:18 Consult to General Surgery Routine Consulting Provider: [facility] [place] [facility] Surgeons Reason for consultation: perineal infection/urethral abscess Consult to Infectious Diseases Routine Consulting Provider: [facility] [place] [facility] Reason for consultation: perineal infection/urethral abscess Attending physician on discharge: Pako Ashley Discharging clinician: Rose Self DS: Diagnosis Discharge Diagnosis (1) Cellulitis of buttock, left: Status: Acute DS: Summary Hospital Course Hospital Course: HPI on admission by Dr. Jennings 08/26: 64yo M with DM2, HTN, and BPH s/p robotic-assisted [place] [place] presenting with worsening painful lump on the L inner buttock over the last 2 weeks with associated foul urine, fever, and chills. No drainage from the lump, but it is red. Some nausea and vomiting. No dysuria or hematuria. He took amoxicillin leftover from an old dental infection at home without any relief. He is found here to be septic with leukcytosis, fever, tachypnea, and tachycardia. CT of the pelvis shows an abscess along the bulbous urethra with extensive adjacent subcutaneous edema extending along the left thigh and gluteal area, with asymmetric bladder thickening. General Surgery and Urology were notified by the ED and he will be admitted to the hospitalist service. He is from the [place] and his PCP is Emily Munson at [facility], but he hasn't seen her yet. This history was taken in Yemeni from the patient. Hospital course: Admitted to [facility] due to urethral abscess and left buttock cellulitis on zosyn/vanco/clinda. Seen by general surgery and urology who do not recommend intervention but recommend management with IV abx. Outpt follow up with urology advised. Patient reports he wants to leave against medical advise as he feels he will recover better at home. Educated that IV abx are advised due to extent of infection with sepsis that could progress to severe sepsis with multiorgan failure or even . UC and BC are negative to date. He is aware that he remains septic and that oral antibiotics are unlikely to eradicate his infection. Pt is oriented x 3 and is able to teach back the concerns regardig him going home as well as what could happen leaving against medical advice. Augmentin and doxycycline sent to pt pharmacy. AMA form signed. For DM he was managed with lispo, can resume home meds on DC. BP stable. Can resume losartan and hctz on dc. Time Attestation Discharge Coordination Time (in mins): 45 Quality: Safe Use of Opioids Does Pt have an Active Cancer Diagnosis on the Problem List?: No Quality: Stroke Does the patient have a stroke diagnosis?: No Physical Exam Vital Signs: Vital Signs: Last Vital Signs Temp 98.9 F 08/27/24 11:52 Pulse 101 H 08/27/24 11:52 Resp 16 08/27/24 11:52 BP 121/58 L 08/27/24 11:52 Pulse Ox 94 08/27/24 11:52 O2 Del Method Room Air 08/27/24 11:52 BMI result Body Mass Index 30.7 DS: Data Data Completed and Pending Labs on day of discharge: Laboratory Results - last 24 hr 08/26/24 08/26/24 08/26/24 12:55 13:51 16:53 WBC RBC Hgb Hct MCV MCH MCHC RDW Plt Count MPV Absolute Nucleated RBC Nucleated RBC % (auto) ESR 83 H Sodium Potassium Chloride Carbon Dioxide Anion Gap BUN Creatinine Estim Creat Clear Calc Estimated GFR POC Glucose 307 H Random Glucose Estimat Average Glucose 246 Hemoglobin A1c % 10.2 H Calcium Urine Color Yellow Urine Appearance Turbid Urine pH 6.0 Ur Specific [place] >= 1.030 H Urine Protein 30 (1+) H Urine Glucose (UA) 100 H Urine Ketones Trace Urine Blood Moderate (2+) H Urine Nitrite Negative Ur Leukocyte Esterase Large (3+) H Urine RBC 0-2 Urine WBC >50 H Urine WBC Clumps Present Ur Squamous Epith Cells 3-5 Urine Bacteria 1+ Hyaline Casts 0-2 Random Vancomycin 08/26/24 08/26/24 08/27/24 17:33 21:32 00:35 WBC RBC Hgb Hct MCV MCH MCHC RDW Plt Count MPV Absolute Nucleated RBC Nucleated RBC % (auto) ESR Sodium Potassium Chloride Carbon Dioxide Anion Gap BUN Creatinine Estim Creat Clear Calc Estimated GFR POC Glucose 272 H 395 H* 209 H Random Glucose Estimat Average Glucose Hemoglobin A1c % Calcium Urine Color Urine Appearance Urine pH Ur Specific [place] Urine Protein Urine Glucose (UA) Urine Ketones Urine Blood Urine Nitrite Ur Leukocyte Esterase Urine RBC Urine WBC Urine WBC Clumps Ur Squamous Epith Cells Urine Bacteria Hyaline Casts Random Vancomycin 08/27/24 08/27/24 08/27/24 04:59 07:09 09:32 WBC 19.4 H RBC 4.37 L Hgb 13.2 L Hct 36.8 L MCV 84.2 MCH 30.2 MCHC 35.9 RDW 12.7 Plt Count 339 MPV 9.3 L Absolute Nucleated RBC 0.000 Nucleated RBC % (auto) 0.0 ESR Sodium 139 Potassium 3.8 Chloride 108 Carbon Dioxide 19 L Anion Gap 16 BUN 18 H Creatinine 0.81 Estim Creat Clear Calc 96.0 Estimated GFR > 60 POC Glucose 122 H 140 H Random Glucose 101 Estimat Average Glucose Hemoglobin A1c % Calcium 8.8 Urine Color Urine Appearance Urine pH Ur Specific [place] Urine Protein Urine Glucose (UA) Urine Ketones Urine Blood Urine Nitrite Ur Leukocyte Esterase Urine RBC Urine WBC Urine WBC Clumps Ur Squamous Epith Cells Urine Bacteria Hyaline Casts Random Vancomycin 08/27/24 08/27/24 10:49 11:10 WBC RBC Hgb Hct MCV MCH MCHC RDW Plt Count MPV Absolute Nucleated RBC Nucleated RBC % (auto) ESR Sodium Potassium Chloride Carbon Dioxide Anion Gap BUN Creatinine Estim Creat Clear Calc Estimated GFR POC Glucose 135 H Random Glucose Estimat Average Glucose Hemoglobin A1c % Calcium Urine Color Urine Appearance Urine pH Ur Specific [place] Urine Protein Urine Glucose (UA) Urine Ketones Urine Blood Urine Nitrite Ur Leukocyte Esterase Urine RBC Urine WBC Urine WBC Clumps Ur Squamous Epith Cells Urine Bacteria Hyaline Casts Random Vancomycin 14.2 L Preliminary micro results at discharge 08/26/24 16:53 Urine Culture - Preliminary Urine clean catch - Clean Catch Midstream No growth to date. Discharge Plan Discharge Anticipated Discharge Date/Time: 08/27/24 13:07 Patient Disposition: Left Against Medical Advice Discharge Diagnosis: Left buttock cellulitis, urethral abscess Referrals: Emily Munson MD [Primary Care Provider] - 1 Week Discharge Medications: New amoxicillin-pot clavulanate 875-125 mg tablet 1 tab PO BID Qty: 20 0RF doxycycline hyclate 100 mg capsule 100 mg PO BID Qty: 20 0RF Continued multivitamin [One Daily Multivitamin] Tablet 1 tab PO DAILY losartan-hydrochlorothiazide 100-25 mg tablet 1 tab PO DAILY metformin 1,000 mg tablet 1,000 mg PO BID cholecalciferol (vitamin D3) [Vitamin D3] 25 mcg (1,000 unit) capsule 25 mcg PO DAILY Discharge Orders: Discharge Order (Routine); Ordered 08/27/24 Ordered By: Rose Self Diet: Advance to usual diet Activity on Discharge: As tolerated Print Language: [place]i Care Plan Goals: Take antiobitoic course as ordered. You are leaving against medical advise. IV antibiotics recommended given severity of infection with sepsis. You have expressed understanding as to the reason inpatient hospitalization is recommended for IV antibiotics to prevent progression of infection/sepsis to severe sepsis with organ failure which could result in Health Concerns: Left buttock cellulitis Urethral abscess Sepsis Plan of Treatment: You are leaving AMA. IV antibiotics recommended Assessment: See above. See dc summary Discharge Date/Time: 08/27/24 13:18
== END 2024-08-27 13:18 | disposition left against medical advice (07) | DRG 720 ==
LOC: HO.ED 16:37 → HO.EDOVER 16:43
PROVIDERS: Physician Assistant Medical; Admitting Provider Family Medicine; Emergency Provider Emergency Medicine; PCP Internal Medicine; Visit Provider Physician Assistant
DX: A41.9 Sepsis, unspecified organism (principal); E11.65 Type 2 diabetes mellitus with hyperglycemia; I10 Essential (primary) hypertension; N34.0 Urethral abscess; L03.317 Cellulitis of buttock; Z87.440 Personal history of urinary (tract) infections; Z79.84 Long term (current) use of oral hypoglycemic drugs; Z79.899 Other long term (current) drug therapy
CPT/HCPCS: 36415; 72193; 80048; 80053; 80202; 81001; 81003; 82947; 83036; 83605; 83735; 85025; 85027; 85652; 86140; 87040; 87086; 93005; 99285; J0131; J0736; J1650; J1885; J2270; J2543; J3370; J7120; Q9967

== ENCOUNTER → 2024-08-26 13:35 | Outpatient (BNV) | payer OTHER, SELFPAY | PROVIDERS: Admitting Provider Family Medicine; Emergency Provider Emergency Medicine; PCP Internal Medicine; Visit Provider Radiology Diagnostic Radiology | DX: N34.0 Urethral abscess (principal); R59.0 Localized enlarged lymph nodes | CPT/HCPCS: 72193 ==

== ENCOUNTER → 2024-08-26 13:37 | Outpatient (BNV) | payer OTHER, SELFPAY | PROVIDERS: Admitting Provider Family Medicine; Emergency Provider Emergency Medicine; PCP Internal Medicine; Visit Provider Internal Medicine Cardiovascular Disease | DX: I45.2 Bifascicular block (principal); I45.10 Unspecified right bundle-branch block; R00.0 Tachycardia, unspecified | CPT/HCPCS: 93010 ==

== ENCOUNTER → 2024-08-26 16:40 | Outpatient (BNV) | payer OTHER, SELFPAY | PROVIDERS: Admitting Provider Family Medicine; Emergency Provider Emergency Medicine; PCP Internal Medicine; Visit Provider Family Medicine | DX: L03.317 Cellulitis of buttock (principal); N34.0 Urethral abscess | CPT/HCPCS: 99223; 99239 ==

== ENCOUNTER → 2024-08-26 16:40 | Outpatient (BNV) | payer OTHER, SELFPAY | PROVIDERS: Admitting Provider Family Medicine; Emergency Provider Emergency Medicine; PCP Internal Medicine; Visit Provider Urology | DX: N40.1 Benign prostatic hyperplasia with lower urinary tract symptoms (principal); N39.0 Urinary tract infection, site not specified | CPT/HCPCS: 99222 ==

== ENCOUNTER → 2024-08-26 16:40 | Outpatient (BNV) | payer OTHER, SELFPAY | PROVIDERS: Admitting Provider Family Medicine; Emergency Provider Emergency Medicine; PCP Internal Medicine; Visit Provider Surgery | DX: L03.317 Cellulitis of buttock (principal) | CPT/HCPCS: 99222; 99232 ==

== ENCOUNTER 2024-09-07 08:25 | Inpatient (IN) | payer OTHER, SELFPAY ==
[2024-09-07] VITALS (12 sets, daily range): BP systolic 97–170; BP diastolic 56–87; PULSE 77–114; RESP 12–18; TEMP 36.1–36.9; O2SAT 96–100; BMI 31.3; BMI 27.1
--- NOTE | ~2024-09-07 | CT_ITS ---
EXAMINATION: CT PELVIS WITH IV CONTRAST HISTORY: Buttock cellulitis. Urethral abscess ?necrosis COMPARISON: The prior study dated 08/26/2024 is not available for comparison at this time due to a technical problem. The prior report was reviewed. TECHNIQUE: CT scan of the pelvis was performed following administration of 85 mL Omnipaque 350 using standard departmental protocol. Coronal and sagittal reformatted images were generated and reviewed. Oral contrast material was not administered at the request of the referring physician. This CT exam was performed with one or more of the following dose reduction techniques: automated exposure control, adjustment of the mA and/or kV according to patient size, use of iterative reconstruction technique. DLP: 240 mGy-cm FINDINGS: There is a fluid collection involving the left bulbous urethra and extending inferiorly into the medial gluteal fat. The collection measures approximately 3.3 x 2.9 x 1.8 cm (previously reported to measure 4.1 x 0.9 x 1.7 cm). No gas is seen in the collection. There is an open wound involving the medial aspect of the left buttock. There is extensive infiltration of the gluteal fat, consistent with cellulitis. Several foci of gas are seen just deep to the wound. In addition, there are multiple bubbles of gas distant from the open wound, suspicious for necrotizing infection. There is partial visualization of an aortobiiliac stent graft. No enlarged pelvic lymph nodes are identified. There is no ascites. The urinary bladder is partially collapsed. However, there is wall thickening of the left aspect of the dome. The visualized bones are intact. CT/CT pelvis w IV con IMPRESSION: 1. Extensive cellulitis of the left buttock with an open wound present. Foci of gas distant from the wound is suspicious for necrotizing infection. 2. Abscess involving the left bulbous urethra and extending inferiorly into the gluteal fat. This is probably larger than on the prior study given measurements in the prior report. However direct comparison is not possible at this time. If prior study can be restored to PACS, an addendum will be issued. 3. Asymmetric thickening of the left dome of the bladder. Further evaluation with cystoscopy is recommended. 4. These findings were discussed with Loretta Mckeon in the emergency room on 09/07/2024 at 11:24 AM. Electronically signed by: Blaze Mireles MD 09/07/2024 11:35 AM EDT
--- OUTSIDE RECORDS SUMMARY | 2024-09-07 08:59 | XMS_ITS | Encounter Summary ---
Author Organization [facility], Address [address] [place] [address] Phone Care Team Providers Care Cleaning Custodian Name Role Phone Shaina Nick TALK SHOW HOST Primary Care Provider [phone] Encounter Details Date Type Department Care Team (Late st Contact Info) Description 10/13/2021 Documentation Only [facility], [address] [place] [address] [place], [place] [address] [place] [address] Social History Tobacco Use Types Packs/Day Years Used Date Smoking Tobacco: Every Day Cigarettes Alcohol Use Standard Drinks/Week Comments Not Currently 12 (1 standard drink = 0.6 oz pu re alcohol) Sex and Gender Information Value Date Recorded Sex Assigned at Not on file Legal Sex Male 9:47 AM EDT Gender Identity Not on file Sexual Orientation Not on file 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
--- NOTE | 2024-09-07 09:02 | PC.NURSE ---
Patient A&O x 3. Macedonian speaking patient but does speak some belarusian, family at bed to help translate. Patient presents to ED after f/u with doctor, doctor recommends surgery for wound on buttock. Patient denies pain, sob, fever, chills. Afebrile. Patient tachy at 104 but all other VSS and up to date. PAtient was seen recently at [facility] [place] but left before finishing treatment. Patient is adamant about receiving surgery today and wanting to discharge to day as well. Provider in to see patient. Plan of care on going.
--- NOTE | 2024-09-07 09:22 | ED.WOUNDLAC ---
HPI - Wound/Laceration General Chief Complaint: Wound/Laceration Stated Complaint: wound check Time Seen by Provider: 09/07/24 08:35 Source: patient, family, RN notes reviewed and old records reviewed Mode of arrival: ambulatory History of Present Illness ED Provider: Loretta Mckeon PA-C [facility] narrative: 64-year-old male with a past medical history diabetes, HTN, BPH s/p robotic assisted laparoscopic simple prostatectomy [[facility] 03/30/23], recent admission to our facility on 08/26/2024 for abscess along bulbous urethra with extensive cellulitis extending to left thigh/gluteal area, subsequently patient signed out AMA on 08/27/2024, presenting back to ED today recommended by PCP due to worsening buttock wound. Patient was discharged with p.o. antibiotics which he reports noncompliance. Denies fever, chills, drainage from area, abdominal pain, dysuria/hematuria at this time Related Data Home Medications ?Medication ?Instructions ?Recorded ?Confirmed cholecalciferol (vitamin D3) 25 25 mcg PO DAILY 08/26/24 08/26/24 mcg (1,000 unit) capsule (Vitamin D3) losartan 100 1 tab PO DAILY 08/26/24 08/26/24 mg-hydrochlorothiazide 25 mg tablet metformin 1,000 mg tablet 1,000 mg PO BID 08/26/24 08/26/24 multivitamin (One Daily 1 tab PO DAILY 08/26/24 08/26/24 Multivitamin tablet) Previous Rx's ?Medication ?Instructions ?Recorded amoxicillin 875 mg-potassium 1 tab PO BID #20 tabs 08/27/24 clavulanate 125 mg tablet doxycycline hyclate 100 mg capsule 100 mg PO BID #20 caps 08/27/24 Allergies Allergy/AdvReac Type Severity Reaction Status Date / Time lisinopril Allergy Unknown Verified 09/07/24 08:33 Review of Systems Review of Systems: Yes all other systems are reviewed and are negative Constitutional: Constitutional: Reports as per [facility] Past Medical History Attestation statement: The following information was validated with the patient. Source: old records reviewed Medical History Urethral abscess BPH (benign prostatic hyperplasia) Type 2 diabetes mellitus Hypertension Surgical History H/O prostatectomy Social History Social History Household Members: Spouse Housing: House Do you presently have visiting nurse or other home services: No Alcohol intake: never Patient Tobacco Use Status: Current someday Tobacco user Tobacco use type: Cigarette Cigarettes Per Day: 8 Smoked in Last 30 Days: Yes Patient Interested in Nicotine Replacement: No Patient Given Instructions on How to Stop Smoking: No Second Hand Smoke Exposure: No Use of substances other than those prescribed or required for medical reasons: No Have you been hit, kicked, punched, or otherwise hurt by someone within the past year? If so, by whom?: No Do you feel safe in your current relationship?: Yes Is there a partner from a previous relationship who is making you feel unsafe now?: No Are you made to feel afraid or neglected: No Advance Directives: No Advance Directives Information Provided: Yes Do you have a plan to hurt others: No Plan Recently lost weight without trying: No Eating poorly because of decreased appetite: No Nutrition Risks: No Nutritional Risk Physical Exam Vital Signs: Vital Signs: Last Vital Signs Temp 97.0 F 09/07/24 15:06 Pulse 77 09/07/24 15:06 Resp 18 09/07/24 15:06 BP 112/60 09/07/24 15:06 Pulse Ox 96 09/07/24 15:06 O2 Del Method Room Air 09/07/24 15:06 O2 Flow Rate 8 09/07/24 14:00 BMI result Body Mass Index 31.3 Const: General: cooperative, healthy appearing and no acute distress Orientation/consciousness: patient oriented x3 Limitations: no limitations HEENT: Head: Yes normal to inspection and Yes atraumatic Ears: hearing grossly normal bilaterally General nose exam: Normal external nose present Face and sinus: Yes normal facial exam Eyes: General: appearance normal, both eyes and all related structures EOM: EOMs intact bilaterally Neck: Neck: Yes normal visual inspection and Yes no meningeal signs Resp: Effort & Inspection: normal respiratory effort and no respiratory distress Cardio: Rate: regular rate GI: Inspection: Yes normal to inspection Palpation (GI): Soft to palpation, nontender, no guarding and not rigid Skin: Other: Please refer to image above. Cellulitic buttock with open wound noted to left buttock as above. Surrounding erythema. No appreciable warmth or crepitus. Rashes: no rashes Neuro: General: patient oriented x3, tone normal and no meningeal signs Cranial nerves: Yes CN's II-XII intact bilaterally Gait exam (Neuro): Normal gait present Extrem: General: Yes normal to inspection Course Course Course Narrative: -1118--leukocytosis of 14.2. ESR 73. CRP WNL -potassium low at 3.1 > p.o. repletion ordered. BUN elevated to 32 1140--CT pelvis w IV con IMPRESSION: 1. Extensive cellulitis of the left buttock with an open wound present. Foci of gas distant from the wound is suspicious for necrotizing infection. 2. Abscess involving the left bulbous urethra and extending inferiorly into the gluteal fat. This is probably larger than on the prior study given measurements in the prior report. However direct comparison is not possible at this time. If prior study can be restored to PACS, an addendum will be issued. 3. Asymmetric thickening of the left dome of the bladder. Further evaluation with cystoscopy is recommended. 4. These findings were discussed with Loretta Mckeon in the emergency room on 09/07/2024 at 11:24 AM. >1145--general surgery, Dr. Cabrera consulted > Dr. Cabrera evaluated patient in the ED, will bring to OR for debridement today. Plan for surgical admission Medications Administered Generic Name Dose Route Start Last Admin Trade Name Freq PRN Reason Stop Dose Admin Enoxaparin Sodium 40 mg 09/07/24 15:00 09/07/24 15:22 Enoxaparin Sodium 40 Mg/0.4 Ml Syringe SUBCUT 40 mg Q24H BIN Administration Lactated Ringer's 1,000 mls @ 100 mls/hr 09/07/24 12:47 09/07/24 16:01 Lr IVCONT 100 mls/hr .Q10H BIN Administration Piperacillin Sod/Tazobactam 50 mls @ 100 mls/hr 09/07/24 16:00 09/07/24 16:02 Sod 3.375 gm/ Sodium Chloride IV Infused Q6H BIN Infusion Insulin Human Lispro 0 unit 09/07/24 16:30 09/07/24 16:47 Insulin Lispro 100 Unit/Ml 3 Ml Vial SUBCUT 2 unit QIDACHS BIN Administration Protocol Discontinued Medications Generic Name Dose Route Start Last Admin Trade Name Freq PRN Reason Stop Dose Admin Vancomycin HCl 2,000 mg in 500 mls @ 250 mls/hr 09/07/24 09:04 09/07/24 15:05 Vancomycin/Ns IV 09/07/24 11:03 Infused ONCE ONE Infusion Piperacillin Sod/Tazobactam 100 mls @ 200 mls/hr 09/07/24 09:04 09/07/24 11:07 Sod 4.5 gm/ Sodium Chloride IV 09/07/24 09:33 Infused ONCE ONE Infusion Clindamycin Phosphate 600 mg in 50 mls @ 100 mls/hr 09/07/24 09:04 09/07/24 10:16 Cleocin IV 09/07/24 09:33 Infused ONCE ONE Infusion Iohexol 100 ml 09/07/24 10:35 09/07/24 10:35 Iohexol 350 Mg/Ml 100 Ml Infus..Btl IV 09/07/24 10:36 85 ml ONCE ONE Administration Potassium Chloride 60 meq 09/07/24 11:19 09/07/24 12:11 Potassium Chloride Er 20 Meq Tab.Er.Prt PO 09/07/24 11:20 60 meq ONCE ONE Administration Medical Decision Making Medical Decision Making MDM Narrative: 64-year-old male with a past medical history diabetes, HTN, BPH s/p robotic assisted laparoscopic simple prostatectomy [[facility] 03/30/23], recent admission to our facility on 08/26/2024 for abscess along bulbous urethra with extensive cellulitis extending to left thigh/gluteal area, subsequently patient signed out AMA on 08/27/2024, presenting back to ED today recommended by PCP due to worsening buttock wound. On exam tachycardic, NAD, nontoxic appearing, physical exam as noted above, please refer to image. Concern for worsening wound with cellulitis/deeper infection vs osteo vs Roberta's gangrene vs abscess Plan: Labs, UA, lactic/blood cultures, CT, empiric IVF, anticipated admission/surgical consult Please refer to course for remaining clinical decision making, interpretation of labs/imaging results, and discussions with consultants and/or family members. Differential Diagnosis Differential Diagnoses: The differential diagnosis associated with the presentation includes As above Admission/Observation Consideration of admission/observation: Escalation of care including admission/observation considered Consult Healthcare Provider Management of the patient was discussed with: Interface Analyst Lab Data MDM Lab Attestation statement: I reviewed the patient's lab results. 09/07/24 09:48 09/07/24 09:48 Labs: Lab Results 09/07/24 Range/Units 09:48 WBC 14.2 H (4.8-10.8) X10*3/uL RBC 4.90 (4.60-5.80) X10*6/uL Hgb 14.7 (14.0-18.0) g/dl Hct 42.0 (42.0-52.0) % MCV 85.7 (80.0-98.0) fL MCH 30.0 (27.0-33.0) pg MCHC 35.0 (31.0-36.0) g/dl RDW 13.5 (11.0-16.0) % Plt Count 560 H D (160-400) X10*3/uL MPV 9.0 L (9.4-12.4) fL Immature Gran % (Auto) 0.6 H (0.0-0.4) % Neut % (Auto) 68.3 (45-73) % Lymph % (Auto) 20.3 (20-40) % [place] % (Auto) 9.6 (2-11) % Eos % (Auto) 0.6 (0-4) % Baso % (Auto) 0.6 (0-2) % Lymph # (Auto) 2.9 (1.2-4.9) X10*3/uL [place] # (Auto) 1.4 H (0.1-1.2) X10*3/uL Eos # (Auto) 0.1 (0.0-0.4) X10*3/uL Baso # (Auto) 0.1 (0.0-0.2) X10*3/uL Abs Immat Gran (auto) 0.09 H (0.00-0.03) X10*3/uL Absolute Neuts (auto) 9.7 H (2.0-8.3) x10*3/uL Absolute Nucleated RBC 0.000 (0.0-0.012) X10*3/uL Nucleated RBC % (auto) 0.0 (0.0-0.2) /100WBC ESR 73 H (0-15) MM/HR Hold Purple Top SEE NOTE Sodium 136 (135-145) mmol/L Potassium 3.1 L (3.3-5.1) mmol/L Chloride 108 (96-108) mmol/L Carbon Dioxide 16 L (22-29) mmol/L Anion Gap 15 (12-20) BUN 32 H (9-16) mg/dL Creatinine 0.94 (0.5-1.4) mg/dL Estim Creat Clear Calc 86.4 Estimated GFR > 60 Random Glucose 232 H (60-115) mg/dL Calcium 9.9 D (8.4-10.2) mg/dL Magnesium 1.6 (1.6-2.6) mg/dL Total Bilirubin 0.3 (0.0-1.0) mg/dL Direct Bilirubin 0.2 (0.0-0.5) mg/dL AST 27 (5-37) U/L ALT 33 (0-40) U/L Alkaline Phosphatase 122 H (39-117) U/L C-Reactive Protein 0.44 (< or = 0.50) mg/dL Total Protein 7.9 (6.5-8.0) g/dL Albumin 4.3 (3.5-5.0) g/dL Lipase 18 (8-78) U/L Independent Interpretation I performed an independent interpretation of an: CT Scan Radiology Impression Discussion of test interpretation with radiology: I have reviewed the radiologist's reading. External Record Review External record reviewed: Inpatient record, Office record, Outpatient record, Prior outpatient labs, Prior outpatient radiology, Primary care record and Outside ED record Tests considered The following testing was considered but not selected: As above Prescription Management I considered prescription management with: Pain Medication and Antibiotic Chronic Conditions Patient?s care impacted by: Other Social Determinants Patient?s care significantly limited by Social Determinants of Health including: Other Social Determinant of Health Critical Care Time Critical Care Time Critical Care Time: Yes Total Critical Care Time: 45 Attestation: I have personally provided critical care time exclusive of time spent on separately billable procedures. Time includes review of lab data, radiology results, discussion with consultants, and monitoring for potential decompensation. Intervention performed as documented. Discharge Plan Discharge Clinical Impression: Necrotizing soft tissue infection, Abscess, urethral, Cellulitis of buttock Patient Disposition: Admitted As Inpatient Interventions: Admission Worksheet (ED) Last Done: 09/07/24 12:54 Discharge Date/Time: 09/07/24 12:56
[2024-09-07] MEDS: Clindamycin Phosphate/D5W 600 MG/50 ML PIGGYBACK 100 MG IV ×2 (09:49→17:29)
[2024-09-07 10:00] LABS: MANUAL DIFF FLAG NO
[2024-09-07 10:03] LABS: Basophils Absolute Auto 0.1 X10*3/uL (0.0-0.2); Basophils Percent Auto 0.6 % (0-2); Eosinophils Absolute Auto 0.1 X10*3/uL (0.0-0.4); Eosinophils Percent Auto 0.6 % (0-4); Hemoglobin 14.7 g/dl (14.0-18.0); Imm Gran Abs Auto 0.09 X10*3/uL (0.00-0.03); Imm Gran Pct Auto 0.6 % (0.0-0.4); Lymphocytes Absolute Auto 2.9 X10*3/uL (1.2-4.9); Lymphocytes Percent Auto 20.3 % (20-40); Mean Corpuscular Volume 85.7 fL (80.0-98.0); Monocytes Absolute Auto 1.4 X10*3/uL (0.1-1.2); Monocytes Percent Auto 9.6 % (2-11); Neutrophils Absolute Auto 9.7 x10*3/uL (2.0-8.3); Neutrophils Percent Auto 68.3 % (45-73); Platelet Count 560 X10*3/uL (160-400); Red Cell Distribution Width 13.5 % (11.0-16.0); White Blood Count 14.2 X10*3/uL (4.8-10.8)
[2024-09-07] MEDS: Piperacillin Sodium/Tazobactam 4.5 GM in 0.9 % Sodium Chloride 100 ML IV (10:16)
[2024-09-07 10:17] LABS: Alanine Aminotransferase 33 U/L (0-40); Albumin Level 4.3 g/dL (3.5-5.0); Alkaline Phosphatase 122 U/L (39-117); Anion Gap 15 (12-20); Aspartate Amino Transferase 27 U/L (5-37); Bilirubin Direct 0.2 mg/dL (0.0-0.5); Bilirubin Total 0.3 mg/dL (0.0-1.0); Blood Urea Nitrogen 32 mg/dL (9-16); C Reactive Protein 0.44 mg/dL (< or = 0.50); Calcium 9.9 mg/dL (8.4-10.2); Carbon Dioxide 16 mmol/L (22-29); Chloride 108 mmol/L (96-108); Creatinine Clr Calc Pharmacy 86.4; Estimated Glomerular Filt Rate > 60; Glucose Random 232 mg/dL (60-115); Lipase 18 U/L (8-78); Magnesium 1.6 mg/dL (1.6-2.6); Potassium 3.1 mmol/L (3.3-5.1); Sodium 136 mmol/L (135-145); Total Protein 7.9 g/dL (6.5-8.0)
--- NOTE | 2024-09-07 10:26 | PC.NURSE ---
pt refusing repeat blood work, stating that he does not want to be poke any more. Informed pt of plan to call phlebotomy to draw his blood, pt continues to refuse. Loretta CLEMENTS made aware.
[2024-09-07] MEDS: iohexoL 350 MG/ML 100 ML INFUS..BTL IV (10:35)
[2024-09-07 10:44] LABS: Erythrocyte Sedimentation Rate 73 MM/HR (0-15)
--- NOTE | 2024-09-07 11:02 | MHC.EDTECH ---
pt refused labwork at 09:30
[2024-09-07] MEDS: vancomycin/NS 2,000 MG/500 ML PLAST..BAG 250 MG IV (11:07)
--- NOTE | 2024-09-07 12:07 | PC.NURSE ---
Patient moved to ED1 to better accommodate another patients plan of care
[2024-09-07] MEDS: Potassium Chloride ER 20 MEQ TAB.ER.PRT 60 MEQ PO (12:11)
--- NOTE | 2024-09-07 12:23 | P.HPGS_ITS ---
History of Present Illness History of Present Illness Date of Service: 09/07/24 Chief complaint: wound check Narrative: Jcak Mckenna is a 64 year old male presenting for evaluation of a necrotizing wound in the perineum. He has a past medical history of diabetes, hypertension, BPH status post robot assisted laparoscopic prostatectomy performed at [facility] on 03/30/2023. He was previously evaluated in the emergency department for abscess and extensive cellulitis involving the thigh and gluteal area but subsequently signed out AMA. He was evaluated by his primary care physician today who noted the necrotizing infection in recommended the patient be evaluated in the emergency department. In the emergency department he was found to have a large necrotic wound in the perineum. Laboratories revealed WBC of 14, sed rate 73, BUN 32. Subsequent CT of the pelvis revealed extensive cellulitis of the left buttock with an open wound present. Foci of gas distant from the wound is suspicious for necrotizing infection. An abscess involving the left bulbous urethra extending inferiorly into the gluteal fat is probably larger than on prior study. Asymmetric thickening was also noted in the left dome of the bladder. The patient is being admitted to the surgical service for debridement of this necrotizing wound. Review of Systems 2 Review of Systems: Yes all other systems are reviewed and are negative PMFSH Past Medical History Medical History (Updated 09/07/24 @ 12:31 by Giuseppe Cabrera MD) Urethral abscess BPH (benign prostatic hyperplasia) Type 2 diabetes mellitus Hypertension Surgical History Surgical History (Updated 09/07/24 @ 12:31 by Giuseppe Cabrera MD) H/O prostatectomy Social History Social History Alcohol intake: never Patient Tobacco Use Status: Never used Tobacco Smoked in Last 30 Days: Yes Use of substances other than those prescribed or required for medical reasons: No Advance Directives: No Advance Directives Information Provided: Yes Meds Allergies Allergy/AdvReac Type Severity Reaction Status Date / Time lisinopril Allergy Unknown Verified 09/07/24 08:33 Home Medications ?Medication ?Instructions ?Recorded ?Confirmed ?Last Taken ?Type cholecalciferol (vitamin D3) 25 25 mcg PO DAILY 08/26/24 08/26/24 08/25/24 History mcg (1,000 unit) capsule (Vitamin D3) losartan 100 1 tab PO DAILY 0508/26/24 08/25/24 History mg-hydrochlorothiazide 25 mg tablet metformin 1,000 mg tablet 1,000 mg PO BID 08/26/24 08/26/24 08/25/24 History multivitamin (One Daily 1 tab PO DAILY 08/26/24 08/26/24 08/25/24 History Multivitamin tablet) Physical Exam 2 Vital Signs: Vital Signs: Last Vital Signs Temp 98.1 F 09/07/24 12:10 Pulse 87 09/07/24 12:10 Resp 14 09/07/24 12:10 BP 121/69 09/07/24 12:10 Pulse Ox 98 09/07/24 12:10 O2 Del Method Room Air 09/07/24 12:10 BMI result Body Mass Index 31.3 Const: General: cooperative and no acute distress Nutritional Appearance: w ell nourished Orientation/consciousness: patient oriented x3 Limitations: no limitations HEENT: Head: Yes normocephalic and Yes atraumatic Ears: hearing grossly normal bilaterally Resp: Effort & Inspection: normal respiratory effort, no audible wheezes, no cough and no respiratory distress Cardio: Jugular venous distension: no JVD GI: Inspection: Yes normal to inspection Back/Spine/Pelvis: Other: Large area of necrosis around the buttock with necrotic skin and subcutaneous tissue. Open wound extends beyond like the length of my finger. No purulence discharge is noted. Back/spine/pelvis image: 1. Large open wound on buttock with surrounding erythema in the intergluteal cleft. Skin: Other: Warm, dry, no rash Neuro: General: patient oriented x3 Extrem: General: Yes no clubbing, cyanosis or edema Results Results Labs: Short CBC 09/07/24 Range/Units 09:48 WBC 14.2 H (4.8-10.8) X10*3/uL Hgb 14.7 (14.0-18.0) g/dl Hct 42.0 (42.0-52.0) % Plt Count 560 H D (160-400) X10*3/uL BMP 09/07/24 09:48 Sodium 136 Potassium 3.1 L Chloride 108 Carbon Dioxide 16 L BUN 32 H Creatinine 0.94 Calcium 9.9 D Liver Function 09/07/24 Range/Units 09:48 Total Bilirubin 0.3 (0.0-1.0) mg/dL Direct Bilirubin 0.2 (0.0-0.5) mg/dL AST 27 (5-37) U/L ALT 33 (0-40) U/L Alkaline Phosphatase 122 H (39-117) U/L Albumin 4.3 (3.5-5.0) g/dL Assessment and Plan (1) Necrotizing soft tissue infection: Status: Acute Plan 64-year-old male patient presenting with complaints of a necrotizing wound in the perineum. He was previously admitted for similar condition but this has subsequently increased in severity. He has a leukocytosis and an elevated sed rate. Exam reveals a large necrotic wound extending deep into the subcutaneous tissue. I recommended further examination in the operating room under general anesthesia with debridement of all necrotic tissue. After discussion of the procedure, risks, and alternatives, he consents to the procedure (debridement of perineal necrotic wound). He has been added onto the operative schedule for today. Quality Stroke Does the patient have a stroke diagnosis?: No VTE Prior VTE?: No VTE Risk Level:: Surgical - moderate VTE Device Contraindication: N/A - Device Ordered VTE Drug Contraindication: Treatment Not Indicated Procedures Date of Service Date of Service: 09/07/24
--- NOTE | 2024-09-07 12:54 | HO.ANESPROP2 ---
[facility] Active Problems Active Problems: All Active Problems Cellulitis of buttock (Acute) Abscess, urethral (Acute) Necrotizing soft tissue infection (Acute) BPH loc w urin obs/LUTS (Acute) Sepsis (Acute) H/O prostatectomy (Acute) Hypertension (Acute) BPH (benign prostatic hyperplasia) (Acute) Type 2 diabetes mellitus (Acute) Urethral abscess (Acute) Cellulitis of buttock, left (Acute) Past Medical History Medical History (Updated 09/07/24 @ 12:31 by Giuseppe Cabrera MD) Urethral abscess BPH (benign prostatic hyperplasia) Type 2 diabetes mellitus Hypertension Functional capacity: bed bound Surgical History Surgical History (Updated 09/07/24 @ 12:31 by Giuseppe Cabrera MD) H/O prostatectomy History of Problems with Anesthesia: No Social History Social History Alcohol intake: never Patient Tobacco Use Status: Never used Tobacco Smoked in Last 30 Days: Yes Use of substances other than those prescribed or required for medical reasons: No Advance Directives: No Advance Directives Information Provided: Yes Meds Allergies Allergy/AdvReac Type Severity Reaction Status Date / Time lisinopril Allergy Unknown Verified 09/07/24 08:33 Active Medications: Current Medications Lactated Ringer's (Lr) 1,000 mls @ 100 mls/hr IVCONT .Q10H BIN Home Medications ?Medication ?Instructions ?Recorded ?Confirmed ?Last Taken ?Type cholecalciferol (vitamin D3) 25 25 mcg PO DAILY 08/26/24 08/26/24 08/25/24 History mcg (1,000 unit) capsule (Vitamin D3) losartan 100 1 tab PO DAILY 08/26/24 08/26/24 08/25/24 History mg-hydrochlorothiazide 25 mg tablet metformin 1,000 mg tablet 1,000 mg PO BID 08/26/24 08/26/24 08/25/24 History multivitamin (One Daily 1 tab PO DAILY 08/26/24 08/26/24 08/25/24 History Multivitamin tablet) Exam Height,Weight and Vital Signs: Height 5 ft 7 in Weight 90.718 kg Last Vital Signs Temp 98.1 F 09/07/24 12:10 Pulse 89 09/07/24 12:53 Resp 18 09/07/24 12:53 BP 108/70 09/07/24 12:53 Pulse Ox 99 09/07/24 12:53 O2 Del Method Room Air 09/07/24 12:53 Pertinent Lab Results Pertinent Lab Results: Laboratory Tests 09/07/24 09:48 WBC 14.2 H RBC 4.90 Hgb 14.7 Hct 42.0 MCV 85.7 MCH 30.0 MCHC 35.0 RDW 13.5 Plt Count 560 H D MPV 9.0 L Immature Gran % (Auto) 0.6 H Neut % (Auto) 68.3 Lymph % (Auto) 20.3 [place] % (Auto) 9.6 Eos % (Auto) 0.6 Baso % (Auto) 0.6 Lymph # (Auto) 2.9 [place] # (Auto) 1.4 H Eos # (Auto) 0.1 Baso # (Auto) 0.1 Abs Immat Gran (auto) 0.09 H Absolute Neuts (auto) 9.7 H Absolute Nucleated RBC 0.000 Nucleated RBC % (auto) 0.0 ESR 73 H Hold Purple Top SEE NOTE Sodium 136 Potassium 3.1 L Chloride 108 Carbon Dioxide 16 L Anion Gap 15 BUN 32 H Creatinine 0.94 Estim Creat Clear Calc 86.4 Estimated GFR > 60 Random Glucose 232 H Calcium 9.9 D Magnesium 1.6 Total Bilirubin 0.3 Direct Bilirubin 0.2 AST 27 ALT 33 Alkaline Phosphatase 122 H C-Reactive Protein 0.44 Total Protein 7.9 Albumin 4.3 Lipase 18 Airway Mallampati Class: III TM Dist: >3cm Neck ROM: Full Loose/Missing/Broken Teeth: Yes, Upper and Lower Heart: RRR Lungs: CTA Assessment and Plan Assessment Anesthesia Assessment: Anesthesia Plan Discussed and Chart Reviewed Final Anesthetic Review History of Problems with Anesthesia: No NPO: Yes ASA Class: II and Emergency Final Preanesthetic Review: Meds/Allgs Chart Reviewed, Consent Obtained/Reviewed and Anes Risks/Benef Reviewed Patient Risk: Intermediate Procedure Risk: Low Anesthetic Plan Anesthetic Plan: GA Disposition: Standard PACU
[2024-09-07 13:07] LABS: Glucose, Whole Blood 149 mg/dL (60-115)
--- NOTE | 2024-09-07 13:56 | W.PM.OPN ---
Operative Note Operative Note Date of Service: 09/07/24 Narrative: Preoperative diagnosis: Necrotizing skin infection left buttock Postoperative diagnosis: Same Procedure: Debridement of necrotizing skin infection left buttock Surgeon: Giuseppe Cabrera MD Home Care Provider: Shreya Cho PA-C; GARY Boyce Anesthesia: General endotracheal Indications for procedure: 64-year-old male patient presenting with a large area of necrotic skin in the left buttock with underlying cavity extending up into the rectum. The patient reports the infection has been present for least 3 weeks it has been increasing in size. He denies any significant pain associated with this. He has past history of diabetes and hypertension. He underwent a prostate surgery March 2023. Operative findings: Patient was found to have a large abscess cavity extending close to but not into the rectum. Extensive granulation tissue was noted in the abscess cavity. No undrained abscess could be identified. Defect measures approximately 6 x 6 cm, 15 cm deep extending into deep subcutaneous tissue with no exposed muscle or bone. Specimen: Necrotic skin, wound culture Estimated blood loss: 20 mL Complications: None Procedure details: Patient was brought to the OR and placed in a supine position. After administering general anesthesia he was placed in a prone position. The skin was prepped with Betadine and draped in a sterile fashion. A surgical time-out was called the consent confirmed. Patient received preoperative antibiotics and Venodyne boots were in place. Local anesthesia consisting of 0.5% Sensorcaine was infiltrated around the abscess cavity and extending superiorly. Electrocautery was then used to debride the necrotic skin and subcutaneous tissue. Overlying skin extending superiorly was then incised with a scalpel and widened with electrocautery. Necrotic tissue and granulation tissue was then excised from the surrounding cavity. A curette was used to spa assistant manager debridement. Hemostasis was assured using electrocautery. Wounds were then thoroughly irrigated with saline solution. Wounds were then packed with Betadine soaked Kerlix she was packed deep into the wound. This was then covered with fluff gauze and ABD pad. Patient tolerated the procedure well. He was returned to the supine position and woken from anesthesia. Sponge, instrument, and needle counts reported as correct. The patient was transferred to PACU in stable condition.
[2024-09-07 14:36] LABS: INTERNATIONAL NORM RATIO 1.1 (0.9-1.1); Prothrombin Time 12.3 SEC (10.9-12.4)
[2024-09-07 14:46] LABS: Lactic Acid 1.8 mmol/L (0.5-2.0)
[2024-09-07] MEDS: Enoxaparin Sodium 40 MG/0.4 ML SYRINGE SUBCUT (15:22)
[2024-09-07] MEDS: Piperacillin Sodium/Tazobactam 3.375 GM in 0.9 % Sodium Chloride 50 ML IV ×2 (15:22→21:58)
--- NOTE | 2024-09-07 16:00 | P.HPHOSP_ITS ---
History of Present Illness Date of Service: 09/07/24 Chief Complaint: Necrotizing skin infection left buttock 64 year old male with DM2, HTN, and BPH s/p robotic-assisted laparoscopic simple prostatectomy at [[facility] 03/30/23] with recent admission to [facility] on 08/26/2024 for abscess along reason with extensive cellulitis extending to the left thigh gluteal area. Patient subsequently signed out AMA on 08/27, re- presented to the ED with worsening buttock wound. Patient was taken to the OR and underwent a debridement with removal of necrotic tissue. Wound was packed with a Betadine-soaked Kerlix and he is admitted for further treatment. On exam he is awake and alert, upset that he has to be here wants to smoke. Denies any shortness of breath, chest pain, dizziness lightheadedness, headache or any other concerning symptoms. He denies any fever or chills, no dysuria, however he has not voided. Denies any nausea or vomiting. In the ED noted to have WBC of 14, sed rate 73, BUN 32 Review of Systems 2 Review of Systems: Yes all other systems are reviewed and are negative [facility] Medical History Urethral abscess BPH (benign prostatic hyperplasia) Type 2 diabetes mellitus Hypertension Functional capacity: bed bound Surgical History H/O prostatectomy Social History Household Members: Spouse Housing: House Do you presently have visiting nurse or other home services: No Alcohol intake: never Patient Tobacco Use Status: Current someday Tobacco user Tobacco use type: Cigarette Cigarettes Per Day: 8 Smoked in Last 30 Days: Yes Patient Interested in Nicotine Replacement: No Patient Given Instructions on How to Stop Smoking: No Second Hand Smoke Exposure: No Use of substances other than those prescribed or required for medical reasons: No Have you been hit, kicked, punched, or otherwise hurt by someone within the past year? If so, by whom?: No Do you feel safe in your current relationship?: Yes Is there a partner from a previous relationship who is making you feel unsafe now?: No Are you made to feel afraid or neglected: No Advance Directives: No Advance Directives Information Provided: Yes Do you have a plan to hurt others: No Plan Recently lost weight without trying: No Eating poorly because of decreased appetite: No Nutrition Risks: No Nutritional Risk Meds Allergies Allergy/AdvReac Type Severity Reaction Status Date / Time lisinopril Allergy Unknown Verified 09/07/24 08:33 Active Medications: Current Medications Albuterol/Ipratropium (Albuterol/Iprat 2.5/0.5mg 3 Ml Ampul.Neb) 3 ml INHALE ONCE PRN PRN Reason: Bronchospasm/wheezing Stop: 09/07/24 19:33 Enoxaparin Sodium (Enoxaparin Sodium 40 Mg/0.4 Ml Syringe) 40 mg SUBCUT Q24H BIN Last Admin: 09/07/24 15:22 Dose: 40 mg Hydromorphone HCl (Hydromorphone Hcl 0.5 Mg/0.5 Ml Syringe) 0.5 mg IVPUSH Q3H PRN; Protocol PRN Reason: Pain, Severe (Pain Scale 7-10) Lactated Ringer's (Lr) 1,000 mls @ 100 mls/hr IVCONT .Q10H BIN Acetaminophen (Ofirmev) 1,000 mg in 100 mls @ 400 mls/hr IV Q6H PRN PRN Reason: Pain, Mild (Pain Scale 1-3) Piperacillin Sod/Tazobactam (Sod 3.375 gm/ Sodium Chloride) 50 mls @ 100 mls/hr IV Q6H BIN Last Admin: 09/07/24 15:22 Dose: 100 mls/hr Ondansetron HCl (Ondansetron Hcl 4 Mg/2 Ml Vial) 4 mg IVPUSH QID PRN PRN Reason: Nausea Oxycodone HCl (Oxycodone Hcl Immed Release 5 Mg Tablet) 5 mg PO Q6H PRN PRN Reason: Pain, Moderate(Pain Scale 4-6) Sodium Hypochlorite (Sodium Hypochlorite 0.125% 473 Ml Solution) 1 appl TOPICAL DAILY BIN Zolpidem Tartrate (Zolpidem Tartrate 5 Mg Tablet) 5 mg PO BEDTIME PRN PRN Reason: Insomnia Home Medications ?Medication ?Instructions ?Recorded ?Confirmed ?Last Taken ?Type cholecalciferol (vitamin D3) 25 25 mcg PO DAILY 08/26/24 08/26/24 08/25/24 History mcg (1,000 unit) capsule (Vitamin D3) losartan 100 1 tab PO DAILY 08/26/24 08/26/24 08/25/24 History mg-hydrochlorothiazide 25 mg tablet metformin 1,000 mg tablet 1,000 mg PO BID 08/26/24 08/26/24 08/25/24 History multivitamin (One Daily 1 tab PO DAILY 08/26/24 08/26/24 08/25/24 History Multivitamin tablet) Physical Exam 2 Vital Signs and Narrative: Vital Signs: Last Vital Signs Temp 97.0 F 09/07/24 15:06 Pulse 77 09/07/24 15:06 Resp 18 09/07/24 15:06 BP 112/60 09/07/24 15:06 Pulse Ox 96 09/07/24 15:06 O2 Del Method Room Air 09/07/24 15:06 O2 Flow Rate 8 09/07/24 14:00 BMI result Body Mass Index 27.1 Alert and oriented X3, able to give good history. Neuro: CN II-X11 intact, no deficits, visual acuity intact EYES: PERRLA, EOM intact ENT: Hearing intact, lips moist Cardiac: S1 S2 RRR, No ectopy Pulmonary: lungs clear to auscultation, No increased WOB. Abdominal: BS active in all 4 quadrants, no guarding or tenderness MSK: Strength 5/5 upper and lower extremities : Deferred Extremities: No edema in lower extremities Psych: mood stable, Quiet and cooperative. Skin: Warm and dry, Large dressing intact to left buttocks wound. Results Labs 09/07/24 09:48 09/07/24 09:48 Labs: Laboratory Results - last 24 hr 09/07/24 09/07/24 09/07/24 09:48 13:02 14:26 MCV 85.7 MCH 30.0 MCHC 35.0 RDW 13.5 Plt Count 560 H D MPV 9.0 L Immature Gran % (Auto) 0.6 H Neut % (Auto) 68.3 Lymph % (Auto) 20.3 [place] % (Auto) 9.6 Eos % (Auto) 0.6 Baso % (Auto) 0.6 Lymph # (Auto) 2.9 [place] # (Auto) 1.4 H Eos # (Auto) 0.1 Baso # (Auto) 0.1 Abs Immat Gran (auto) 0.09 H Absolute Neuts (auto) 9.7 H Absolute Nucleated RBC 0.000 Nucleated RBC % (auto) 0.0 ESR 73 H Hold Purple Top SEE NOTE PT 12.3 INR 1.1 Anion Gap 15 Estim Creat Clear Calc 86.4 Estimated GFR > 60 POC Glucose 149 H Random Glucose 232 H Lactic Acid 1.8 Calcium 9.9 D Magnesium 1.6 Total Bilirubin 0.3 Direct Bilirubin 0.2 AST 27 ALT 33 Alkaline Phosphatase 122 H C-Reactive Protein 0.44 Total Protein 7.9 Albumin 4.3 Lipase 18 Imaging Radiologist's Impressions: Impressions Pelvis CT 09/07/24 09:23 IMPRESSION: 1. Extensive cellulitis of the left buttock with an open wound present. Foci of gas distant from the wound is suspicious for necrotizing infection. 2. Abscess involving the left bulbous urethra and extending inferiorly into the gluteal fat. This is probably larger than on the prior study given measurements in the prior report. However direct comparison is not possible at this time. If prior study can be restored to PACS, an addendum will be issued. 3. Asymmetric thickening of the left dome of the bladder. Further evaluation with cystoscopy is recommended. 4. These findings were discussed with Loretta Mckeon in the emergency room on 09/07/2024 at 11:24 AM. Electronically signed by: Blaze Mireles MD 09/07/2024 11:35 AM EDT RP Assessment and Plan (1) Necrotizing soft tissue infection: Status: Acute Plan 64-year-old male patient with necrotizing wound in his perineum. He left AMA 08/27/2024 for similar complaint and returned to ED for worsening wound and evidence of infection. He had leukocytosis and an elevated sed rate on admission with evidence of worsening infection. He underwent debridement of perineal necrotic wound today with and will be admitted for further treatment including IV ABT and wound care. Necrotizing wound in left buttocks/Abscess Continue Clindamycin, Vanco and Zosyn Follow cultures Consult ID Wound management per surgery Follow labs HTN Hold home medications for now Typpe 2 DM Hold Home meds, Insulin SS. BPH s/p robotic-assisted laparoscopic simple prostatectomy [[facility] 03/30/23] Bladder scan Q shift SC >350 Code Status FULL CODE VTE Prophylaxis Lovenox Quality Stroke Does the patient have a stroke diagnosis?: No VTE Prior VTE?: No VTE Risk Level:: Surgical - moderate VTE Device Contraindication: Treatment Not Indicated VTE Drug Contraindication: N/A - Med Ordered
[2024-09-07] MEDS: Lactated Ringers 1,000 ML 100 ML IVCONT (16:01)
[2024-09-07 16:24] LABS: Glucose, Whole Blood 168 mg/dL (60-115)
[2024-09-07] MEDS: Insulin Lispro 100 UNIT/ML 3 ML VIAL SUBCUT ×2 (16:47→20:31)
[2024-09-07 16:55] LABS: Appearance Urine Clear; Color Urine Yellow; Glucose Urine UA Negative (Negative); Leukocyte Esterase Urine Moderate (2+) (Negative); Nitrite Urine Negative (Negative); PH 5.5 (5.0-9.0); Specific Gravity - Urine >= 1.030 (1.005-1.025); UMIC TRIGGER UACC YES; Urine Blood Negative (Negative); Urine Ketones Negative (Negative); Urine Protein 30 (1+) mg/dL (Neg-Trace)
--- NOTE | 2024-09-07 17:00 | PHA.PROG ---
Admission Date/Time: September 07, 2024 12:42 Indication: SKIN Weight in k.6 kg Adjusted body weight in Kg: [place] body weight in Kg: Obesity Dosing Indication % IBW: Serum Creatinine - Last 168 Hours 09/07/24 09:48 Creatinine 0.94 Estimated CrCl and GFR - Last 168 Hours 09/07/24 09:48 Estim Creat Clear Calc 86.4 Estimated GFR > 60 Vancomycin Loading Dose: 2000 MG Current Vancomycin Dosing Regimen: 750 MG Q12H Vancomycin Monitoring using AUC goal of 400 - 600 range with trough as surrogate marker: CSM=317 TROUGH=13.5 Date and Time for next Vancomycin Level to be drawn: 09/08/24 @2100 Pharmacist Comments on Vancomycin Plan: Vancomycin dosing will take advantage of [employer] as a clinical decision support tool that uses Bayesian modeling to calculate individual patient's pharmacokinetic parameters and forecast the patient's drug concentration time course with the target goal AUC 24 range of 400 - 600 mg/L/hr.
[2024-09-07 17:21] LABS: Bacteria Urine None Seen (None Seen); Hyaline Casts Urine 0-2 /LPF (0-2); RBC Urine 0-2 /HPF (0-2); Squamous Epithelial Cell Urine 0-2 /HPF (0-2); UACC Culture Trigger YES; WBC Urine >50 /HPF (0-5)
[2024-09-07 20:22] LABS: Glucose, Whole Blood 198 mg/dL (60-115)
--- NOTE | 2024-09-07 21:07 | PHA.MEDREC ---
Addendum entered by Jayjay Guillaume RPh 09/07/24 21:32: MED REC REVIEWED Original Note: Pharmacy Consult ? Medication Reconciliation Pharmacy has completed the medication reconciliation. Patient has been sleeping and family at bedside didn't know what medications patient takes. Utilized claims to confirm med list.
[2024-09-07] MEDS: vancomycin HCL 750 MG in 0.9 % Sodium Chloride 250 ML 265 MG IV (22:23)
[2024-09-08 00:02] VITALS: BP 116/63; PULSE 127; RESP 20; TEMP 36.9; O2SAT 96
[2024-09-08] MEDS: Clindamycin Phosphate/D5W 600 MG/50 ML PIGGYBACK 100 MG IV ×2 (01:51→09:06)
[2024-09-08 01:57] VITALS: PULSE 75
[2024-09-08 03:06] VITALS: BP 113/65; PULSE 87; RESP 20; TEMP 36.3; O2SAT 97
[2024-09-08] MEDS: Piperacillin Sodium/Tazobactam 3.375 GM in 0.9 % Sodium Chloride 50 ML IV ×2 (04:00→09:06)
[2024-09-08] MEDS: HYDROmorphone HCl 0.5 MG/0.5 ML SYRINGE IVPUSH (04:05)
[2024-09-08] MEDS: Lactated Ringers 1,000 ML 100 ML IVCONT (04:38)
[2024-09-08 06:06] LABS: Basophils Absolute Auto 0.2 X10*3/uL (0.0-0.2); Basophils Percent Auto 1.1 % (0-2); Eosinophils Absolute Auto 0.1 X10*3/uL (0.0-0.4); Hematocrit 37.7 % (42.0-52.0); Hemoglobin 13.1 g/dl (14.0-18.0); Imm Gran Abs Auto 0.08 X10*3/uL (0.00-0.03); Imm Gran Pct Auto 0.6 % (0.0-0.4); Lymphocytes Absolute Auto 2.6 X10*3/uL (1.2-4.9); Lymphocytes Percent Auto 18.4 % (20-40); MANUAL DIFF FLAG SCAN; Mean Corpuscular HGB Conc 34.7 g/dl (31.0-36.0); Mean Corpuscular Hemoglobin 29.4 pg (27.0-33.0); Mean Corpuscular Volume 84.7 fL (80.0-98.0); Mean Platelet Volume 9.2 fL (9.4-12.4); Monocytes Absolute Auto 1.6 X10*3/uL (0.1-1.2); Monocytes Percent Auto 11.6 % (2-11); Neutrophils Absolute Auto 9.4 x10*3/uL (2.0-8.3); Neutrophils Percent Auto 67.3 % (45-73); Platelet Count 595 X10*3/uL (160-400); Red Blood Count 4.45 X10*6/uL (4.60-5.80); Red Cell Distribution Width 13.6 % (11.0-16.0); SCAN SMEAR FLAG 1; White Blood Count 13.9 X10*3/uL (4.8-10.8)
[2024-09-08 06:29] LABS: Alanine Aminotransferase 29 U/L (0-40); Albumin Level 3.8 g/dL (3.5-5.0); Alkaline Phosphatase 110 U/L (39-117); Anion Gap 14 (12-20); Aspartate Amino Transferase 29 U/L (5-37); Bilirubin Total 0.5 mg/dL (0.0-1.0); Blood Urea Nitrogen 14 mg/dL (9-16); Calcium 9.2 mg/dL (8.4-10.2); Carbon Dioxide 20 mmol/L (22-29); Chloride 109 mmol/L (96-108); Creatinine Clr Calc Pharmacy 103.9; Estimated Glomerular Filt Rate > 60; Glucose Random 141 mg/dL (60-115); Potassium 3.3 mmol/L (3.3-5.1); Sodium 140 mmol/L (135-145); Total Protein 6.9 g/dL (6.5-8.0)
[2024-09-08 06:31] LABS: SLIDE REVIEW VERIFIED
[2024-09-08] MEDS: Sodium Hypochlorite 0.125% 473 ML SOLUTION 1 APPL TOPICAL (07:02)
[2024-09-08] MEDS: oxyCODONE HCl Immed Release 5 MG TABLET PO ×2 (07:03→13:29)
[2024-09-08 07:06] VITALS: BP 121/60; PULSE 97; RESP 16; TEMP 36.3; O2SAT 96
[2024-09-08 07:42] LABS: Glucose, Whole Blood 135 mg/dL (60-115)
--- NOTE | 2024-09-08 08:20 | P.PNGS_ITS ---
Subjective Subjective Date of Service: 09/08/24 Interval history: The patient feels much improved this morning with only minimal pain. Would really like to go home. Physical Exam 2 Vital Signs: Vital Signs: Last Vital Signs Temp 97.4 F 09/08/24 07:06 Pulse 97 09/08/24 07:06 Resp 16 09/08/24 07:06 BP 121/60 09/08/24 07:06 Pulse Ox 96 09/08/24 07:06 O2 Del Method Room Air 09/08/24 07:06 O2 Flow Rate 8 09/07/24 14:00 BMI result Body Mass Index 27.1 Const: General: comfortable Nutritional Appearance: well nourished O rientation/consciousness: patient oriented x3 Resp: Effort & Inspection: normal respiratory effort Back/Spine/Pelvis: Other: Packing removed from deep buttock wound. Wounds clean with no evidence of new necrotic tissue. Wounds repacked with Dakin's solution soaked 4 x 4 followed by ABD pad. Neuro: General: patient oriented x3 Objective Data Active Medications Dextrose (Dextrose 50 % 25 Gm/50 Ml Syringe) 25 gm IVPUSH Q15M PRN; Protocol PRN Reason: per Hypoglycemia Standing Ord. Enoxaparin Sodium (Enoxaparin Sodium 40 Mg/0.4 Ml Syringe) 40 mg SUBCUT Q24H [facility] Last Admin: 09/07/24 15:22 Dose: 40 mg Documented By: CHANDA Glucose (Glucose Gel 15 Gm Gel..Gram.) 15 gm PO Q15M PRN; Protocol PRN Reason: per Hypoglycemia Standing Ord. Hydromorphone HCl (Hydromorphone Hcl 0.5 Mg/0.5 Ml Syringe) 0.5 mg IVPUSH Q3H PRN; Protocol PRN Reason: Pain, Severe (Pain Scale 7-10) Last Admin: 09/08/24 04:05 Dose: 0.5 mg Documented By: ALEX Lactated Ringer's (Lr) 1,000 mls @ 100 mls/hr IVCONT .Q10H [facility] Last Admin: 09/08/24 04:38 Dose: 100 mls/hr Documented By: ALEX Acetaminophen (Ofirmev) 1,000 mg in 100 mls @ 400 mls/hr IV Q6H PRN PRN Reason: Pain, Mild (Pain Scale 1-3) Piperacillin Sod/Tazobactam (Sod 3.375 gm/ Sodium Chloride) 50 mls @ 100 mls/hr IV Q6H [facility] Last Infusion: 09/08/24 04:40 Dose: Infused Documented By: ALEX Clindamycin Phosphate (Cleocin) 600 mg in 50 mls @ 100 mls/hr IV Q8H [facility] Last Infusion: 09/08/24 02:47 Dose: Infused Documented By: ALEX Vancomycin HCl 750 mg/ Sodium (Chloride) 265 mls @ 265 mls/hr IV Q12H [facility] Last Infusion: 09/07/24 23:37 Dose: Infused Documented By: ALEX Insulin Human Lispro (Insulin Lispro 100 Unit/Ml 3 Ml Vial) 0 unit SUBCUT QIDACHS [facility]; Protocol Last Admin: 09/07/24 20:31 Dose: 2 unit Documented By: ALEX Nicotine Polacrilex (Nicotine Polacrilex 2 Mg Gum) 4 mg BUCCAL Q2H PRN PRN Reason: Nicotine Cravings Ondansetron HCl (Ondansetron Hcl 4 Mg/2 Ml Vial) 4 mg IVPUSH QID PRN PRN Reason: Nausea Oxycodone HCl (Oxycodone Hcl Immed Release 5 Mg Tablet) 5 mg PO Q6H PRN PRN Reason: Pain, Moderate(Pain Scale 4-6) Last Admin: 09/08/24 07:03 Dose: 5 mg Documented By: ALEXANDRO Pharmacy Consult (Consult Rx Vancomycin Dosing) 1 each MISCELLANE DAILY PRN PRN Reason: Consult order Sodium Hypochlorite (Sodium Hypochlorite 0.125% 473 Ml Solution) 1 appl TOPICAL DAILY [facility] Last Admin: 09/08/24 07:02 Dose: 1 appl Documented By: ALEXANDRO Zolpidem Tartrate (Zolpidem Tartrate 5 Mg Tablet) 5 mg PO BEDTIME PRN PRN Reason: Insomnia Labs 09/08/24 05:29 09/08/24 05:30 Labs: Laboratory Results - last 24 hr 09/07/24 09/07/24 09/07/24 09:48 13:02 14:26 MCV 85.7 MCH 30.0 MCHC 35.0 RDW 13.5 Plt Count 560 H D MPV 9.0 L Immature Gran % (Auto) 0.6 H Neut % (Auto) 68.3 Lymph % (Auto) 20.3 [place] % (Auto) 9.6 Eos % (Auto) 0.6 Baso % (Auto) 0.6 Lymph # (Auto) 2.9 [place] # (Auto) 1.4 H Eos # (Auto) 0.1 Baso # (Auto) 0.1 Abs Immat Gran (auto) 0.09 H Absolute Neuts (auto) 9.7 H Absolute Nucleated RBC 0.000 Nucleated RBC % (auto) 0.0 Smear Tech's Comments ESR 73 H Hold Purple Top SEE NOTE PT 12.3 INR 1.1 Anion Gap 15 Estim Creat Clear Calc 86.4 Estimated GFR > 60 POC Glucose 149 H Random Glucose 232 H Lactic Acid 1.8 Calcium 9.9 D Magnesium 1.6 Total Bilirubin 0.3 Direct Bilirubin 0.2 AST 27 ALT 33 Alkaline Phosphatase 122 H Total Creatine Kinase C-Reactive Protein 0.44 Total Protein 7.9 Albumin 4.3 Lipase 18 Urine Color Urine Appearance Urine pH Ur Specific [place] Urine Protein Urine Glucose (UA) Urine Ketones Urine Blood Urine Nitrite Ur Leukocyte Esterase Urine RBC Urine WBC Ur Squamous Epith Cells Urine Bacteria Hyaline Casts 09/07/24 09/07/24 09/07/24 16:06 16:43 20:18 MCV MCH MCHC RDW Plt Count MPV Immature Gran % (Auto) Neut % (Auto) Lymph % (Auto) [place] % (Auto) Eos % (Auto) Baso % (Auto) Lymph # (Auto) [place] # (Auto) Eos # (Auto) Baso # (Auto) Abs Immat Gran (auto) Absolute Neuts (auto) Absolute Nucleated RBC Nucleated RBC % (auto) Smear Tech's Comments ESR Hold Purple Top PT INR Anion Gap Estim Creat Clear Calc Estimated GFR POC Glucose 168 H 198 H Random Glucose Lactic Acid Calcium Magnesium Total Bilirubin Direct Bilirubin AST ALT Alkaline Phosphatase Total Creatine Kinase C-Reactive Protein Total Protein Albumin Lipase Urine Color Yellow Urine Appearance Clear Urine pH 5.5 Ur Specific [place] >= 1.030 H Urine Protein 30 (1+) H Urine Glucose (UA) Negative Urine Ketones Negative Urine Blood Negative Urine Nitrite Negative Ur Leukocyte Esterase Moderate (2+) H Urine RBC 0-2 Urine WBC >50 H Ur Squamous Epith Cells 0-2 Urine Bacteria None Seen Hyaline Casts 0-2 0609/08/24 09/08/24 05:29 05:30 07:13 MCV 84.7 MCH 29.4 MCHC 34.7 RDW 13.6 Plt Count 595 H MPV 9.2 L Immature Gran % (Auto) 0.6 H Neut % (Auto) 67.3 Lymph % (Auto) 18.4 L [place] % (Auto) 11.6 H Eos % (Auto) 1.0 Baso % (Auto) 1.1 Lymph # (Auto) 2.6 [place] # (Auto) 1.6 H Eos # (Auto) 0.1 Baso # (Auto) 0.2 Abs Immat Gran (auto) 0.08 H Absolute Neuts (auto) 9.4 H Absolute Nucleated RBC 0.000 Nucleated RBC % (auto) 0.0 Smear Tech's Comments VERIFIED ESR Hold Purple Top PT INR Anion Gap 14 Estim Creat Clear Calc 103.9 Estimated GFR > 60 POC Glucose 135 H Random Glucose 141 H Lactic Acid Calcium 9.2 D Magnesium Total Bilirubin 0.5 Direct Bilirubin AST 29 ALT 29 Alkaline Phosphatase 110 Total Creatine Kinase 22 L C-Reactive Protein Total Protein 6.9 Albumin 3.8 Lipase Urine Color Urine Appearance Urine pH Ur Specific [place] Urine Protein Urine Glucose (UA) Urine Ketones Urine Blood Urine Nitrite Ur Leukocyte Esterase Urine RBC Urine WBC Ur Squamous Epith Cells Urine Bacteria Hyaline Casts Microbiology Microbiology Results: Microbiology 09/07/24 13:36 Gram Stain - Final Perianal Procedures Date of Service Date of Service: 09/08/24 Progress Note: A&P Assessment and plan (1) Cellulitis of buttock, left: Status: Acute (2) Necrotizing soft tissue infection: Status: Acute Plan 64-year-old male presenting with a necrotic ulcer in the right buttock status post debridement on 09/07/2024. Dressings changed this morning and repacked with Dakin solution. Patient will need close supervision of this necrotic ulcer for recurrent. Could be discharged today if VNA is possible on a daily basis. Wound is much too deep and complex to allow family members to change dressings. Plan on continued hospitalization for local wound care, IV antibiotic Time Spent With Patient Time: Total time managing care of this patient today ____ minutes. Quality Stroke Does the patient have a stroke diagnosis?: No VTE Prior VTE?: No VTE Risk Level:: Surgical - moderate VTE Device Contraindication: Treatment Not Indicated VTE Drug Contraindication: N/A - Med Ordered
--- NOTE | 2024-09-08 08:33 | HO.POSTANES ---
Post Anesthesia Evaluation Post Anesthesia Evaluation Date of Service: 09/08/24 Vital Signs: Vital Signs Temp Pulse Resp BP Pulse Ox O2 Del Method 09/08/24 07:06 97.4 F 97 16 121/60 96 Room Air 09/08/24 03:06 97.3 F 87 20 113/65 97 Room Air 09/08/24 01:57 75 09/08/24 00:02 98.4 F 127 H 20 116/63 96 Room Air Anesthesia: General Endotracheal-GETA Mental Status: Awake Pain Control: Satisfactory Nausea/Vomiting: None Hydration: Adequate Anesthesia-Related Issues: No Anes. Related Issues
[2024-09-08] MEDS: vancomycin HCL 750 MG in 0.9 % Sodium Chloride 250 ML 265 MG IV (10:24)
--- NOTE | 2024-09-08 10:32 | MHC.CM.PN ---
pt lives with had no services in the home prior to admisison pt has a ride home hime pt is bed bound ..pt can not have vna daily dr high wanted to keep pt inhospitial beacause of the vna situation but pt wants to leave will be taught by nursing staff to do dressing changes
--- NOTE | 2024-09-08 11:49 | P.PNIM_ITS ---
Subjective Subjective Date of Service: 09/08/24 Interval History: This history was taken in [place] from the patient. Pain controlled, wants to go home. No fever Review of Systems Review of Systems: Yes all other systems are reviewed and are negative Physical Exam 2 Vital Signs: Vital Signs: Last Vital Signs Temp 97.4 F 09/08/24 07:06 Pulse 97 09/08/24 07:06 Resp 16 09/08/24 07:06 BP 121/60 09/08/24 07:06 Pulse Ox 96 09/08/24 07:06 O2 Del Method Room Air 09/08/24 07:06 O2 Flow Rate 8 09/07/24 14:00 BMI result Body Mass Index 27.1 Gen: in no acute distress HEENT: sclera anicteric, moist mucus membranes Neck: supple Lungs: clear to auscultation bilaterally Heart: regular rate and rhythm, no murmurs Abd: soft, non-tender, non-distended Ext: no edema, deep buttock wound packed and covered with ABD pad; reference made to surgeon's description of wound itself Skin: warm/well-perfused Neuro: alert and oriented x3, no focal findings Psych: appropriate affect Objective Data Active Medications Dextrose (Dextrose 50 % 25 Gm/50 Ml Syringe) 25 gm IVPUSH Q15M PRN; Protocol PRN Reason: per Hypoglycemia Standing Ord. Enoxaparin Sodium (Enoxaparin Sodium 40 Mg/0.4 Ml Syringe) 40 mg SUBCUT Q24H [facility] Last Admin: 09/07/24 15:22 Dose: 40 mg Documented By: CHANDA Glucose (Glucose Gel 15 Gm Gel..Gram.) 15 gm PO Q15M PRN; Protocol PRN Reason: per Hypoglycemia Standing Ord. Hydromorphone HCl (Hydromorphone Hcl 0.5 Mg/0.5 Ml Syringe) 0.5 mg IVPUSH Q3H PRN; Protocol PRN Reason: Pain, Severe (Pain Scale 7-10) Last Admin: 09/08/24 04:05 Dose: 0.5 mg Documented By: ALEX Lactated Ringer's (Lr) 1,000 mls @ 100 mls/hr IVCONT .Q10H [facility] Last Admin: 09/08/24 04:38 Dose: 100 mls/hr Documented By: HO.ODRISM Acetaminophen (Ofirmev) 1,000 mg in 100 mls @ 400 mls/hr IV Q6H PRN PRN Reason: Pain, Mild (Pain Scale 1-3) Piperacillin Sod/Tazobactam (Sod 3.375 gm/ Sodium Chloride) 50 mls @ 100 mls/hr IV Q6H [facility] Last Infusion: 09/08/24 09:40 Dose: Infused Documented By: ALEXANDRO Clindamycin Phosphate (Cleocin) 600 mg in 50 mls @ 100 mls/hr IV Q8H [facility] Last Infusion: 09/08/24 09:40 Dose: Infused Documented By: ALEXANDRO Vancomycin HCl 750 mg/ Sodium (Chloride) 265 mls @ 265 mls/hr IV Q12H [facility] Last Infusion: 09/08/24 11:43 Dose: Infused Documented By: ALEXANDRO Insulin Human Lispro (Insulin Lispro 100 Unit/Ml 3 Ml Vial) 0 unit SUBCUT QIDACHS [facility]; Protocol Last Admin: 09/08/24 08:27 Dose: Not Given Documented By: ALEXANDRO Non-Admin Reason: No Insulin Coverage Nicotine Polacrilex (Nicotine Polacrilex 2 Mg Gum) 4 mg BUCCAL Q2H PRN PRN Reason: Nicotine Cravings Ondansetron HCl (Ondansetron Hcl 4 Mg/2 Ml Vial) 4 mg IVPUSH QID PRN PRN Reason: Nausea Oxycodone HCl (Oxycodone Hcl Immed Release 5 Mg Tablet) 5 mg PO Q6H PRN PRN Reason: Pain, Moderate(Pain Scale 4-6) Last Admin: 09/08/24 07:03 Dose: 5 mg Documented By: ALEXANDRO Pharmacy Consult (Consult Rx Vancomycin Dosing) 1 each MISCELLANE DAILY PRN PRN Reason: Consult order Sodium Hypochlorite (Sodium Hypochlorite 0.125% 473 Ml Solution) 1 appl TOPICAL DAILY [facility] Last Admin: 09/08/24 07:02 Dose: 1 appl Documented By: ALEXANDRO Zolpidem Tartrate (Zolpidem Tartrate 5 Mg Tablet) 5 mg PO BEDTIME PRN PRN Reason: Insomnia Labs 09/08/24 05:29 09/08/24 05:30 Labs: Laboratory Results - last 24 hr 09/07/24 09/07/24 09/07/24 13:02 14:26 16:06 MCV MCH MCHC RDW Plt Count MPV Immature Gran % (Auto) Neut % (Auto) Lymph % (Auto) [place] % (Auto) Eos % (Auto) Baso % (Auto) Lymph # (Auto) [place] # (Auto) Eos # (Auto) Baso # (Auto) Abs Immat Gran (auto) Absolute Neuts (auto) Absolute Nucleated RBC Nucleated RBC % (auto) Smear Tech's Comments PT 12.3 INR 1.1 Anion Gap Estim Creat Clear Calc Estimated GFR POC Glucose 149 H 168 H Random Glucose Lactic Acid 1.8 Calcium Total Bilirubin AST ALT Alkaline Phosphatase Total Creatine Kinase Total Protein Albumin Urine Color Urine Appearance Urine pH Ur Specific [place] Urine Protein Urine Glucose (UA) Urine Ketones Urine Blood Urine Nitrite Ur Leukocyte Esterase Urine RBC Urine WBC Ur Squamous Epith Cells Urine Bacteria Hyaline Casts 09/07/24 09/07/24 09/08/24 16:43 20:18 05:29 MCV 84.7 MCH 29.4 MCHC 34.7 RDW 13.6 Plt Count 595 H MPV 9.2 L Immature Gran % (Auto) 0.6 H Neut % (Auto) 67.3 Lymph % (Auto) 18.4 L [place] % (Auto) 11.6 H Eos % (Auto) 1.0 Baso % (Auto) 1.1 Lymph # (Auto) 2.6 [place] # (Auto) 1.6 H Eos # (Auto) 0.1 Baso # (Auto) 0.2 Abs Immat Gran (auto) 0.08 H Absolute Neuts (auto) 9.4 H Absolute Nucleated RBC 0.000 Nucleated RBC % (auto) 0.0 Smear Tech's Comments VERIFIED PT INR Anion Gap Estim Creat Clear Calc Estimated GFR POC Glucose 198 H Random Glucose Lactic Acid Calcium Total Bilirubin AST ALT Alkaline Phosphatase Total Creatine Kinase Total Protein Albumin Urine Color Yellow Urine Appearance Clear Urine pH 5.5 Ur Specific [place] >= 1.030 H Urine Protein 30 (1+) H Urine Glucose (UA) Negative Urine Ketones Negative Urine Blood Negative Urine Nitrite Negative Ur Leukocyte Esterase Moderate (2+) H Urine RBC 0-2 Urine WBC >50 H Ur Squamous Epith Cells 0-2 Urine Bacteria None Seen Hyaline Casts 0-2 09/08/24 09/08/24 05:30 07:13 MCV MCH MCHC RDW Plt Count MPV Immature Gran % (Auto) Neut % (Auto) Lymph % (Auto) [place] % (Auto) Eos % (Auto) Baso % (Auto) Lymph # (Auto) [place] # (Auto) Eos # (Auto) Baso # (Auto) Abs Immat Gran (auto) Absolute Neuts (auto) Absolute Nucleated RBC Nucleated RBC % (auto) Smear Tech's Comments PT INR Anion Gap 14 Estim Creat Clear Calc 103.9 Estimated GFR > 60 POC Glucose 135 H Random Glucose 141 H Lactic Acid Calcium 9.2 D Total Bilirubin 0.5 AST 29 ALT 29 Alkaline Phosphatase 110 Total Creatine Kinase 22 L Total Protein 6.9 Albumin 3.8 Urine Color Urine Appearance Urine pH Ur Specific [place] Urine Protein Urine Glucose (UA) Urine Ketones Urine Blood Urine Nitrite Ur Leukocyte Esterase Urine RBC Urine WBC Ur Squamous Epith Cells Urine Bacteria Hyaline Casts Microbiology Microbiology Results: Microbiology 09/07/24 09:40 Blood Culture - Preliminary Blood - Venous No growth after 24 hours. 09/07/24 09:38 Blood Culture - Preliminary Blood - Venous No growth after 24 hours. 09/07/24 13:36 Gram Stain - Final Perianal Routine Culture - Preliminary Culture in progress. Assessment and Plan (1) Necrotizing soft tissue infection: Status: Acute Plan d2 for 64yo M with HTN + DM2 admitted to surgery service for necrotizing soft tissue infection of perineum; was admitted here 08/26 when the infection was less severe but signed out AMA 08/27. S/p debridement in OR 09/07, medicine consult for management of antibiotics and comorbid conditions. necrotizing soft tissue infection of perineum/buttocks - 09/07- clindamycin + vancomycin + piperacillin-tazobactam, follow blood and wound cultures, ID consult pending - wound care per Surgery HTN - holding losartan-HCTZ for now DM2 - holding MTF for now, on miquel-dose lispro VTE ppx - enoxaparin dispo - will need VNA for wound care Thank you for this consultation. We will continue to follow the patient while they are admitted to your service. Total time managing care of this patient today: 35 minutes. Quality Stroke Does the patient have a stroke diagnosis?: No VTE Prior VTE?: No VTE Risk Level:: Surgical - moderate VTE Device Contraindication: Treatment Not Indicated VTE Drug Contraindication: N/A - Med Ordered
[2024-09-08 12:01] LABS: Glucose, Whole Blood 127 mg/dL (60-115)
--- NOTE | 2024-09-08 12:38 | PM.DS ---
DS: Providers Provider Date of Service: 09/08/24 Date of admission: 09/07/24 12:42 Date of discharge: 09/08/24 Primary care physician: Emily Munson MD Admitting clinician: Giuseppe Cabrera Consults: 09/07/24 15:00 Consult to Hospitalist Routine Comment: Consulting Provider: [facility] Hospitalists Reason For Exam: buttock abscess, DM, HTN, med management 09/07/24 16:15 Consult to Infectious Diseases Routine Consulting Provider: [facility] Infectious Disease Center [facility] Attending physician on discharge: Giuseppe Cabrera DS: Diagnosis Discharge Diagnosis (1) Necrotizing soft tissue infection: Status: Acute DS: Summary Hospital Course Hospital Course: Jack Mckenna is a 64 year old male presenting for evaluation of a necrotizing wound in the perineum. He has a past medical history of diabetes, hypertension, BPH status post robot assisted laparoscopic prostatectomy performed at [facility] on 03/30/2023. He was previously evaluated in the emergency department for abscess and extensive cellulitis involving the thigh and gluteal area but subsequently signed out AMA. He was evaluated by his primary care physician today who noted the necrotizing infection in recommended the patient be evaluated in the emergency department. In the emergency department he was found to have a large necrotic wound in the perineum. Laboratories revealed WBC of 14, sed rate 73, BUN 32. Subsequent CT of the pelvis revealed extensive cellulitis of the left buttock with an open wound present. Foci of gas distant from the wound is suspicious for necrotizing infection. An abscess involving the left bulbous urethra extending inferiorly into the gluteal fat is probably larger than on prior study. Asymmetric thickening was also noted in the left dome of the bladder. The patient is being admitted to the surgical service for debridement of this necrotizing wound. He was taken to the OR on 09/07/2024 for debridement of this necrotic skin infection. Patient was found to have a large abscess cavity extending close to but not into the rectum. Extensive granulation tissue was noted in the abscess cavity. No undrained abscess could be identified. Defect measures approximately 6 x 6 cm, 15 cm deep extending into deep subcutaneous tissue with no exposed muscle or bone. On postoperative day 1, the patient reported feeling much improved and denied significant pain from the wound. The dressings were changed and no further necrotic tissue was identified. Wounds were packed with Dakin solution wet-to-dry followed by fluff gauze and ABD pads. The patient is requesting discharge to home. Arrangements were made for VNA for wound checks. He will follow up in the office in approximately 1 week. Arrangements will be made for wound care referral. Outside dressings could be changed daily and as needed by the patient/family. Packing by VNA with the Dakin solution wet-to-dry should ideally be done approximately every other day. Status at Discharge Functional status at discharge: independent ambulation Overall status at discharge: patient is back to baseline Time Attestation Discharge Coordination Time (in mins): 35 Quality: Safe Use of Opioids Does Pt have an Active Cancer Diagnosis on the Problem List?: No Quality: Stroke Does the patient have a stroke diagnosis?: No Physical Exam Vital Signs: Vital Signs: Last Vital Signs Temp 97.4 F 09/08/24 07:06 Pulse 97 09/08/24 07:06 Resp 16 09/08/24 07:06 BP 121/60 09/08/24 07:06 Pulse Ox 96 09/08/24 07:06 O2 Del Method Room Air 09/08/24 07:06 O2 Flow Rate 8 09/07/24 14:00 BMI result Body Mass Index 27.1 Const: General: comfortable Nutritional Appearance: well nourished Orientation/consciousness: patient oriented x3 Resp: Effort & Inspection: normal respiratory effort Back/Spine/Pelvis: Other: Packing removed from deep buttock wound. Wounds clean with no evidence of new necrotic tissue. Wounds repacked with Dakin's solution soaked 4 x 4 followed by ABD pad. Neuro: General: patient oriented x3 DS: Data Data Completed and Pending Pending studies at discharge: Pending at discharge 09/07/24 14:00 Surgical [PTH] Routine Labs on day of discharge: Laboratory Results - last 24 hr 09/07/24 09/07/24 09/07/24 13:02 14:26 16:06 WBC RBC Hgb Hct MCV MCH MCHC RDW Plt Count MPV Immature Gran % (Auto) Neut % (Auto) Lymph % (Auto) [place] % (Auto) Eos % (Auto) Baso % (Auto) Lymph # (Auto) [place] # (Auto) Eos # (Auto) Baso # (Auto) Abs Immat Gran (auto) Absolute Neuts (auto) Absolute Nucleated RBC Nucleated RBC % (auto) Smear Tech's Comments PT 12.3 INR 1.1 Sodium Potassium Chloride Carbon Dioxide Anion Gap BUN Creatinine Estim Creat Clear Calc Estimated GFR POC Glucose 149 H 168 H Random Glucose Lactic Acid 1.8 Calcium Total Bilirubin AST ALT Alkaline Phosphatase Total Creatine Kinase Total Protein Albumin Urine Color Urine Appearance Urine pH Ur Specific [place] Urine Protein Urine Glucose (UA) Urine Ketones Urine Blood Urine Nitrite Ur Leukocyte Esterase Urine RBC Urine WBC Ur Squamous Epith Cells Urine Bacteria Hyaline Casts 09/07/24 09/07/24 09/08/24 16:43 20:18 05:29 WBC 13.9 H RBC 4.45 L Hgb 13.1 L Hct 37.7 L MCV 84.7 MCH 29.4 MCHC 34.7 RDW 13.6 Plt Count 595 H MPV 9.2 L Immature Gran % (Auto) 0.6 H Neut % (Auto) 67.3 Lymph % (Auto) 18.4 L [place] % (Auto) 11.6 H Eos % (Auto) 1.0 Baso % (Auto) 1.1 Lymph # (Auto) 2.6 [place] # (Auto) 1.6 H Eos # (Auto) 0.1 Baso # (Auto) 0.2 Abs Immat Gran (auto) 0.08 H Absolute Neuts (auto) 9.4 H Absolute Nucleated RBC 0.000 Nucleated RBC % (auto) 0.0 Smear Tech's Comments VERIFIED PT INR Sodium Potassium Chloride Carbon Dioxide Anion Gap BUN Creatinine Estim Creat Clear Calc Estimated GFR POC Glucose 198 H Random Glucose Lactic Acid Calcium Total Bilirubin AST ALT Alkaline Phosphatase Total Creatine Kinase Total Protein Albumin Urine Color Yellow Urine Appearance Clear Urine pH 5.5 Ur Specific [place] >= 1.030 H Urine Protein 30 (1+) H Urine Glucose (UA) Negative Urine Ketones Negative Urine Blood Negative Urine Nitrite Negative Ur Leukocyte Esterase Moderate (2+) H Urine RBC 0-2 Urine WBC >50 H Ur Squamous Epith Cells 0-2 Urine Bacteria None Seen Hyaline Casts 0-2 09/08/24 09/08/24 09/08/24 05:30 07:13 11:31 WBC RBC Hgb Hct MCV MCH MCHC RDW Plt Count MPV Immature Gran % (Auto) Neut % (Auto) Lymph % (Auto) [place] % (Auto) Eos % (Auto) Baso % (Auto) Lymph # (Auto) [place] # (Auto) Eos # (Auto) Baso # (Auto) Abs Immat Gran (auto) Absolute Neuts (auto) Absolute Nucleated RBC Nucleated RBC % (auto) Smear Tech's Comments PT INR Sodium 140 Potassium 3.3 Chloride 109 H Carbon Dioxide 20 L Anion Gap 14 BUN 14 Creatinine 0.68 Estim Creat Clear Calc 103.9 Estimated GFR > 60 POC Glucose 135 H 127 H Random Glucose 141 H Lactic Acid Calcium 9.2 D Total Bilirubin 0.5 AST 29 ALT 29 Alkaline Phosphatase 110 Total Creatine Kinase 22 L Total Protein 6.9 Albumin 3.8 Urine Color Urine Appearance Urine pH Ur Specific [place] Urine Protein Urine Glucose (UA) Urine Ketones Urine Blood Urine Nitrite Ur Leukocyte Esterase Urine RBC Urine WBC Ur Squamous Epith Cells Urine Bacteria Hyaline Casts Preliminary micro results at discharge 09/07/24 Unknown Urine Culture - Preliminary Urine clean catch - Clean Catch Midstream Culture too young to evaluate. 09/07/24 09:40 Blood Culture - Preliminary Blood - Venous No growth after 24 hours. 09/07/24 09:38 Blood Culture - Preliminary Blood - Venous No growth after 24 hours. 09/07/24 13:36 Routine Culture - Preliminary Perianal Culture in progress. Discharge Plan Discharge Anticipated Discharge Date/Time: 09/08/24 12:28 Patient Disposition: Home Health Service Discharge Diagnosis: Necrotizing skin infection left buttock Referrals: Emily Munson MD [Primary Care Provider] - 1 Week Giuseppe Cabrera MD [Physician] - 1 Week Discharge Medications: New amoxicillin-pot clavulanate 875-125 mg tablet 1 tab PO BID 10 Days Qty: 20 0RF oxycodone 5 mg tablet 5 mg PO Q6H PRN (Reason: pain (scale score 7-10)) Qty: 15 0RF Rx Instructions: Partial Fill upon patient request. Continued multivitamin [One Daily Multivitamin] Tablet 1 tab PO DAILY losartan-hydrochlorothiazide 100-25 mg tablet 1 tab PO DAILY metformin 1,000 mg tablet 1,000 mg PO BID cholecalciferol (vitamin D3) [Vitamin D3] 25 mcg (1,000 unit) capsule 25 mcg PO DAILY Discharge Orders: Discharge Order (Routine); Ordered 09/08/24 Ordered By: Giuseppe Cabrera Diet: Diabetic diet Activity on Discharge: No heavy lifting Stand Alone Forms: Patient Portal Discharge page Print Language: Italian Activity Restrictions/Additional Instructions: Daily dressing changes to cover the open wound left buttock Packing changes with VNA q.o.d. with Dakin solution May shower prior to dressing change Augmentin 875/125 b.i.d. times 10 days Oxycodone 1 tab q.6 hours as needed for severe pain Follow-up in the office in 1 week for wound check. Care Plan Goals: Healing of large necrotic ulcer left buttock Health Concerns: Diabetes, necrotic skin infection Plan of Treatment: Debridement on 09/07/2024, oral antibiotics Assessment: Necrotic skin infection left buttock, diabetes
--- NOTE | 2024-09-08 14:17 | MHC.CM.PN ---
PT DCD HOME WITH NS
--- NOTE | 2024-09-08 14:18 | W.MHC.F2F ---
Service Date Service Date: 09/08/24 Encounter Date of encounter: 09/08/24 Reasons for Services Signs and symptoms assessed: Dressings removed and wounds to left buttock examined. Wounds redressed with Dakin's solution wet to dry dressing, fluffed gauze and ABD pad, paper tape Reason for long term: wound care, postoperative assessment and/or care and diabetic teaching MD Overseeing Care: Giuseppe Cabrera Homebound: Leaving the home is medically contraindicated at this time without the asist of a device and/or another person due th the listed conditions above and below. Reason homebound: unsteady gait / fall risk, leg weakness and pain with ambulation Certification: Based on the above findings, I certify that this patient is confined to the home and needs intermittent long term care, physical therapy and/or speech therapy, or continues to need occupational therapy. The patient is under my care, and I have initiated the establishment of the plan of care. The patient will be followed by a physician who will periodically review the plan of care. Time Spent With Patient Time: Total time managing care of this patient today ____ minutes.
== END 2024-09-08 13:52 | disposition home health service (06) | DRG 383 ==
LOC: HO.ED 12:40 → HO.EDOVER 12:43 → HO.S3 14:24
PROVIDERS: Family Medicine; Physician Assistant; Admitting Provider Surgery; Emergency Provider Emergency Medicine; PCP Internal Medicine; Visit Provider Surgery
PROC: 0JB90ZZ Excision of Buttock Subcutaneous Tissue and Fascia, Open Approach (ICD-10-PCS; principal; 2024-09-07 12:30)
DX: L02.31 Cutaneous abscess of buttock (principal); I96 Gangrene, not elsewhere classified; L98.419 Non-pressure chronic ulcer of buttock with unspecified severity; F17.210 Nicotine dependence, cigarettes, uncomplicated; Z71.6 Tobacco abuse counseling; Z90.79 Acquired absence of other genital organ(s); Z79.84 Long term (current) use of oral hypoglycemic drugs; Z79.899 Other long term (current) drug therapy
CPT/HCPCS: 36415; 72193; 80048; 80053; 80076; 81001; 82550; 82947; 83605; 83690; 83735; 85025; 85610; 85652; 86140; 87040; 87070; 87077; 87086; 87088; 87186; 87205; 88305; 99285; J0330; J0736; J1171; J1650; J2003; J2543; J2704; J3010; J3370; J7120; Q9967

== ENCOUNTER → 2024-09-07 08:38 | Outpatient (BNV) | payer OTHER, SELFPAY | PROVIDERS: Emergency Provider Emergency Medicine; PCP Internal Medicine; Visit Provider Surgery | DX: L03.317 Cellulitis of buttock (principal); M79.89 Other specified soft tissue disorders | CPT/HCPCS: 11042; 11045; 99222; 99239; 99499; G0180 ==

== ENCOUNTER → 2024-09-07 09:01 | Outpatient (BNV) | payer OTHER, SELFPAY | PROVIDERS: Emergency Provider Emergency Medicine; PCP Internal Medicine; Visit Provider Radiology Diagnostic Radiology | DX: L03.317 Cellulitis of buttock (principal); N34.0 Urethral abscess; R93.89 Abnormal findings on diagnostic imaging of other specified body structures | CPT/HCPCS: 72193 ==

== ENCOUNTER → 2024-09-07 12:42 | Outpatient (BNV) | payer OTHER, SELFPAY | PROVIDERS: Admitting Provider Surgery; Emergency Provider Emergency Medicine; PCP Internal Medicine; Visit Provider Family Medicine | DX: M79.89 Other specified soft tissue disorders (principal) | CPT/HCPCS: 99222; 99232 ==

== ENCOUNTER 2025-02-27 10:07 | Outpatient (REF) | payer OTHER, SELFPAY ==
--- OUTSIDE RECORDS SUMMARY | 2025-02-27 12:50 | XMS_ITS | Clinical Summary ---
Author Organization [facility], Address [address] [facility] [address] [place] [address] Phone Care Team Providers Care Field Hand Name Role Phone Shaina Nick NP Primary Care Provider [phone]- [phone] Allergies Active Allergy Reactions Criticality Noted Date Comments Lisinopril 09/24/2021 Other reaction(s): cough, n/v/d Medications atorvastatin (LIPITOR) 40 MG tablet Take 40 mg by mouth 1 (one) time each day 08/21/2020 Active carvedilol (COREG) 3.125 MG tablet Take 1 tablet by mouth in the morning and 1 tablet in the evening. 08/04/2021 Active losartan-hydroC HLOROthiazide (HYZAAR) 100-25 MG per tablet Take 1 tablet by mouth 1 (one) time each day 07/02/2021 Active ibuprofen (ADVIL,MOTRIN) 800 MG tablet Take 1 tablet by mouth 08/27/2021 Active Empagliflozin 10 MG tablet Take 10 mg by mouth 1 (one) time each day 03/05/2021 Active metFORMIN (GLUCOPHAGE) 1000 MG tablet Take 1,000 mg by mouth in the morning and 1,000 mg in the evening. 07/02/2021 Active omeprazole OTC (PriLOSEC OTC) 20 MG EC tablet Take 20 mg by mouth 08/27/2021 Active amoxicillin-cla vulanate (Augmentin) 875-125 MG per tablet Take 1 tablet by mouth in the morning and 1 tablet in the evening. Do all this for 7 days. 14 tablet 10/03/2021 Active Active Problems Problem Noted Date Diagnosed Date Simple renal cyst 10/03/2021 Urinary tract infection 10/03/2021 Renal disorder due to type 2 diabetes mellitus 0 10/03/2021 Hyperlipidemia 09/24/2021 Hypertensive disorder 09/24/2021 Type 2 diabetes mellitus 09/24/2021 Immunizations Immunization Administration Dates Next Due Influenza LAIV (Nasal) 01/23/2009 Influenza, Unspecified 04/07/2011,01/31/2008 Pneumococcal Polysaccharide 11/19/2009 Td, Unspecified 10/01/2006 Tdap 03/18/2010 Family History Medical History Relation Comments Alcohol abuse Brother Alcohol abuse Father Alcohol abuse Mother Diabetes Paternal Grandmother Hypertension Paternal Grandmother Relation Status Comments Brother Father Mother Paternal Grandmother Social History Tobacco Use Types Packs/Day Years [...] 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 Not on file Not on file Plan of Treatment Health Maintenance Due Date Last Done Comments Colorectal Cancer Screening: Annual FOBT 2010 Colorectal Cancer Screening: Colonoscopy 2010 Colorectal Cancer Screening: Sigmoidoscopy 2010 Pneumococcal Vaccine: 50+ Years (2 of 2 - PCV) 11/19/2010 11/19/2009 Diabetes: Hemoglobin A1C 09/08/2021 Diabetes: Ophthalmology Exam 09/08/2021 Diabetes: Pedal Pulse Checked 09/08/2021 Diabetes: Sensory Foot Exam 09/08/2021 Diabetes: Visual Foot Exam 09/08/2021 Influenza Vaccine (#1) 2024 2, 01/23/2009, 01/31/2008 Pneumococcal Vaccine: Peds ( 0 to 5 Years) and At-Risk Patients (6 to 49 Years) Discontinued 11/19/2009 Hepatitis B Vaccine Aged Out No longe r eligible based on patient's age to complete this topic Insurance [facility] Medicaid Care Teams Field Hand Relationship Specialty Start Date End Date Shaina Nick, RIGGER CHIEF [address] [place] [phone] PCP - General Nurse Practitioner 09/08/21
--- OUTSIDE RECORDS SUMMARY | 2025-02-27 12:50 | XMS_ITS | Encounter Summary ---
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
--- OUTSIDE RECORDS SUMMARY | 2025-02-27 12:50 | XMS_ITS | Encounter Summary ---
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
--- OUTSIDE RECORDS SUMMARY | 2025-02-27 12:50 | XMS_ITS | Encounter Summary ---
Author Organization [facility] Address [address] [place] [address] Phone Care Team Providers Care Undertaker Helper Name Role Phone Shaina Nick EXECUTIVE DIRECTOR Primary Care Provider [phone]- [phone] Encounter Details Date Type Department Care Team (Late st Contact Info) Description 10/28/2021 Documentation Only [facility], [address] [place] [id number] Hari Marks MD [address] [facility] 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
[2025-02-27 13:30] LABS: MANUAL DIFF FLAG NO
[2025-02-27 13:37] LABS: Hematocrit 40.2 % (42.0-52.0); Hemoglobin 13.8 g/dl (14.0-18.0); Imm Gran Abs Auto 0.05 X10*3/uL (0.00-0.03); Imm Gran Pct Auto 0.4 % (0.0-0.4); Lymphocytes Absolute Auto 4.1 X10*3/uL (1.2-4.9); Mean Corpuscular HGB Conc 34.3 g/dl (31.0-36.0); Mean Corpuscular Hemoglobin 29.9 pg (27.0-33.0); Mean Corpuscular Volume 87.2 fL (80.0-98.0); NRBC Abs Auto 0.000 X10*3/uL (0.0-0.012); NRBC Pct Auto 0.0 /100WBC (0.0-0.2); Platelet Count 342 X10*3/uL (160-400); Red Blood Count 4.61 X10*6/uL (4.60-5.80); White Blood Count 13.3 X10*3/uL (4.8-10.8)
[2025-02-27 13:46] LABS: Alanine Aminotransferase 20 U/L (0-40); Albumin Level 4.7 g/dL (3.5-5.0); Alkaline Phosphatase 79 U/L (39-117); Anion Gap 14 (12-20); Aspartate Amino Transferase 23 U/L (5-37); Blood Urea Nitrogen 19 mg/dL (9-16); Calcium 10.4 mg/dL (8.4-10.2); Carbon Dioxide 23 mmol/L (22-29); Chloride 107 mmol/L (96-108); Estimated Glomerular Filt Rate > 60; Potassium 4.0 mmol/L (3.3-5.1); Sodium 140 mmol/L (135-145); Total Protein 8.1 g/dL (6.5-8.0)
== END 2025-02-27 10:08 | disposition home or self-care (01) ==
LOC: HO.HKASLDS 10:07
PROVIDERS: PCP Internal Medicine; Visit Provider Student in an Organized Health Care Education/Training Program
DX: E11.40 Type 2 diabetes mellitus with diabetic neuropathy, unspecified (principal); L60.3 Nail dystrophy; B35.1 Tinea unguium
CPT/HCPCS: 36415; 80053; 83036; 85025

== ENCOUNTER 2025-02-27 10:07 | Outpatient (AMB) | payer OTHER, SELFPAY ==
[2025-02-27 10:25] VITALS: BMI 27.6
--- NOTE | 2025-02-27 10:25 | MHC.OFFVIS ---
Vital Signs 02/27/25 10:25 Height 5 ft 7 in Weight 176 lb BMI 27.6 Intake Visit Reasons: Onychomycosis of multiple toenails with type 2 britt Intake Note: Jack is a 64 year old female who presents today as a new patient for a diabetic foot exam. Patient reports his last known glucose was 140 as of last week. He experiences numbness in both his feet without burning or tingling. No previous history of wounds or amputations. He denies having back pain and no previous medical history of injuries to his back and he is not taking gabapentin at his time. He reports he has had the fungus for about 8-10 years and he has not had any treatment recently however he states 10 years ago they did a fungus treatment to his toes. Allergies lisinopril Allergy (Verified 02/27/25 10:26) Unknown HPI Comments Details: The patient is a 64 year old individual with a past medical history as seen below presenting for a diabetic foot exam. The patient reports intermittent numbness in the feet, which began about six to seven months ago. The numbness primarily occurs when getting up in the middle of the night or after sitting on the toilet for a prolonged period, and is not experienced during the day. The patient denies any burning sensations associated with the numbness. He states his most recent blood glucose was 140 mg/dL which he checked last week. Patient does not know his A1c. Patient states he has noted adverse changes to his toenails x10. Patient states he experiences discomfort to the toes when the nails are too long or thick. he denies any recent pedal injuries. He denies any other pedal concerns. [facility] Medical History (Updated 02/27/25 @ 10:44 by Diana Martinez DPM) Diabetic neuropathy Nail disorder Nail dystrophy Tinea unguium Cellulitis of buttock Necrotizing soft tissue infection Cellulitis of buttock, left Urethral abscess BPH (benign prostatic hyperplasia) Type 2 diabetes mellitus Hypertension Surgical History (System 01/18/25 @ 15:29 by Candice De La Rosa) H/O prostatectomy Social History (System 01/18/25 @ 15:29 by Candice De La Rosa) Household Members: Spouse Housing: House Do you presently have visiting nurse or other home services: No Alcohol intake: never Patient Tobacco Use Status: Current someday Tobacco user Tobacco use type: Cigarette Cigarettes Per Day: 8 Second Hand Smoke Exposure: No service: No Review of Systems Const Details: - Neurological: Reports intermittent foot numbness for the past 6-7 months. - Denies burning sensations. - Musculoskeletal/Extremities: Reports occasional discomfort to the toes with the nails are too long or thick. All systems reviewed & are unremarkable except as noted in HPI and below Physical Exam Vital Signs: BMI result Body Mass Index 27.6 Extrem Other: Bilateral lower extremity focused physical exam: Derm: Thickened, discolored, elongated, and dystrophic toenails x10, worse to the left hallucal nail. No open lesions abrasions or wounds noted. No hyperkeratotic areas noted. No maceration noted. Skin supple and turgor within normal limits. No ecchymosis, erythema, or discoloration noted. No clinical signs of infection noted. Vascular: DP/PT pulses palpable. Capillary refill time less than 3 seconds. Temperature gradient warm to warm. No varicosities noted. No edema noted. Pedal hair diminished. Neuro: Protective sensation is grossly diminished to light touch and diminished to monofilament testing. MSK: discomfort on palpation to toenails x10 due to thickened and elongated toenails. Hammertoe deformities noted bilaterally. Pes cavus foot type noted. No crepitus or fluctuance noted. No other gross abnormalities noted. Class C findings noted. Office Procedures AMB Debridement/Avulsion Podia Details: Debrided toenails x10 using sterile nail nippers without any incidents. 94071-Uoqnkelusqz of Nail 6+ Procedure code (CPT) selection complete Diabetic Foot Exam G9226 - Diabetic Foot Exam Results Reviewed Results Reviewed: Laboratory Tests 08/26/24 09/08/24 09/08/24 12:55 05:30 11:31 POC Glucose 127 H Hemoglobin A1c % 10.2 H AST 29 ALT 29 Ordered new labs to be performed prior to next visit. Assessment & Plan Assessment & Plan (1) Type 2 diabetes mellitus: Code(s): E11.9 - Type 2 diabetes mellitus without complications Category: Medical (2) Nail disorder: Code(s): L60.9 - Nail disorder, unspecified Category: Medical (3) Nail dystrophy: Code(s): L60.3 - Nail dystrophy Category: Medical (4) Tinea unguium: Code(s): B35.1 - Tinea unguium Category: Medical (5) Diabetic neuropathy: Code(s): E11.40 - Type 2 diabetes mellitus with diabetic neuropathy, unspecified Category: Medical Plan Patient was informed and verbally consented to the use of an ambient scribe for clinic note documentation during this visit. Educated patient on diabetes in the affects in the lower extremities. I explained to the patient that the intermittent numbness in the feet is likely a symptom of diabetic neuropathy, caused by high blood sugar coating the nerves. I advised that while the existing numbness may not resolve, controlling blood sugar is crucial to prevent the symptoms from progressing up the limbs. The importance of daily foot inspections was stressed, as diabetes can impair wound healing. Regarding the fungal infection noted in the to the toenails, I discussed two treatment options. The first is a topical ciclopirox japanese, which improves nail color over about a year but does not resolve thickness. The second is an oral medication that would require lab monitoring due to a risk of elevating liver function levels. The patient consented to and was prescribed the topical japanese. I also provided a prescription for diabetic shoes and inserts, noting that insurance typically covers one pair per year. - Debridement of ten toenails was performed. - Labs were ordered to check blood sugar and A1c levels. - A prescription for ciclopirox topical japanese was sent to the pharmacy for treatment of onychomycosis. - A prescription was provided for diabetic shoes and inserts. - Patient is to monitor his feet daily and is to avoid barefoot walking. - Patient is to wear supportive shoe gear. - Continue diabetic management as per PCP. RTC in 9 weeks. Orders: Orders Comprehensive Met. Panel 02/27/25 E11.9 - Type 2 diabetes mellitus without complications Complete Blood Count Auto Diff 02/27/25 E11.9 - Type 2 diabetes mellitus without complications Hemoglobin A1c 02/27/25 E11.9 - Type 2 diabetes mellitus without complications AMB Debridement/Avulsion Podiatry 02/27/25 B35.1 - Tinea unguium, E11.40 - Type 2 diabetes mellitus with diabetic neuropathy, unspecified, E11.9 - Type 2 diabetes mellitus without complications, L60.3 - Nail dystrophy, L60.9 - Nail disorder, unspecified AMB Diabetic Foot Exam 02/27/25 E11.40 - Type 2 diabetes mellitus with diabetic neuropathy, unspecified, E11.9 - Type 2 diabetes mellitus without complications Medications: New ciclopirox 8% 1 appl topical BEDTIME 6.6 mL 0RF 4 weeks B35.1 - Tinea unguium, E11.9 - Type 2 diabetes mellitus without complications, L60.3 - Nail dystrophy, L60.9 - Nail disorder, unspecified [diabetic shoes and inserts] Please dispense 1 pair of diabetic shoes and 1-3 pairs of inserts 1 ea 0RF E11.40 - Type 2 diabetes mellitus with diabetic neuropathy, unspecified, E11.9 - Type 2 diabetes mellitus without complications Coding Level of Care Code New Pt Level 4 (20599) Diagnoses Type 2 diabetes mellitus E11.9 Nail disorder L60.9 Nail dystrophy L60.3 Tinea unguium B35.1 Diabetic neuropathy E11.40 CPT Codes Skin Debridement - CPT: 38174-Kdnjzkabmbd of Nail 6+ ([id number]) Diabetic Foot Exam - CPT: G9226 - Diabetic Foot Exam ([id number]) Time Spent (min) 52 Comment 7 mins for procedure
--- OUTSIDE RECORDS SUMMARY | 2025-02-27 11:30 | XMS_ITS | Encounter Summary ---
Author Organization [employer] Address [address] [place] [address] Care Team Providers Care Demo Coordinator Name Role Phone Emily Munson MD Primary Care Provider + Reason for Visit * Reason Onset Date Comments emergency dental no insurance 05/02/2024 Encounter Details Date Type Department Care Team (Late Contact Info) Description 05/02/2024 Telephone [facility] [address] [place] [address] Jack Thompson DDS [address] [place] [address] emergency dental no insurance Social History Tobacco Use Types Packs/Day Years Used Date Smoking Tobacco: Never Assessed Sex and Gender Information Value Date Recorded Sex Assigned at Male 01/26/2022 10:26 AM EDT Legal Sex Male 10:26 AM EDT Gender Identity Male 05/02/2024 8:22 AM EST Sexual Orientation Choose not to disclose 2024 8:22 AM EST documented as of this encounter Miscellaneous Notes * Telephone Encounter - Coral Escobar - 05/02/2024 8:26 AM EST Patient is self pay. Patient has been referred to [facility] or 3rd for assistance with SFS and/or insurance per email sent by Kelly. Trey in [facility] front desk representative did assist but advised to see managed care DR documented in this encounter Plan of Treatment Upcoming Encounters Date Type Department Care Team (Late Contact Info) Description 04/18/2025 11:15 AM EST Office Visit [facility] [address] [place] [address] Emily Munson MD [address] [place] [address] documented as of this encounter Visit Diagnoses Not on filedocumented in this encounter Care Teams Demo Coordinator Relationship Specialty Start Date End Date Emily Munson MD [address] [place] [address] PCP - General [facility] documented as of this encounter
--- OUTSIDE RECORDS SUMMARY | 2025-02-27 11:30 | XMS_ITS | Encounter Summary ---
Author Organization [employer] Address [address] [facility] [address] [place] [address] Care Team Providers Care Numerical Control Tool Programmer Name Role Phone Emily Munson MD Primary Care Provider + Reason for Visit * Reason Onset Date Comments Nurse Triage 09/13/2024 Encounter Details Date Type Department Care Team ([facility] st Contact Info) Description 09/13/2024 Telephone [facility] [address] [place] [address] Emily Munson MD [address] [place] [address] Nurse Triage Social History Tobacco Use Types Packs/Day Years Used Date Smoking Tobacco: Never Smokeless Tobacco: Never Alcohol Use Standard Drinks/Week Comments Never 0 (1 standard drink = 0.6 oz pur e alcohol) Depression Answer Date Recorded Patient Health Questionnaire-9 Score 23 09/06/2024 Patient Health Questionnaire-9 Score 23 09/06/2024 Last PHQ-9: Questionnaire Data Not on file 0 09/06/2024 Housing Stability Answer Date Recorded What is your housing situation today? I have quinton wolfe 09/06/[address] you li ve. Do you have problems with any of the following? None of the above 09/06/2024 Food Insecurity Answer Date Recorded Within the past 12 months, y ou worried that your food would run out before you got money to buy more: Never True 09/06/2024 Within the past 12 months,th e food you bought just didn't last and you didn't have enough money to get more: Never True 01/2025 Transportation Answer Date Recorded In the past 12 months, has l ack of transportation kept you from medical appts, meetings, work or from getting things needed for daily living? No 09/06/2024 Utilities Answer Date Recorded In the past 12 months, has t he electric, gas, oil or water company threatened to shut off services in your home? No 09/06/2024 Depression Answer Date Recorded Patient Health Questionnaire-2 Score 5 09/06/2024 Internet Access Answer Date Recorded Internet Access Q1 No 09/06/2024 Internet Access Q2 I do not want or need it 08/27 Sex and Gender Information Value Date Recorded Sex Assigned at Male 01/26/2022 10:26 AM EDT Legal Sex Male 10:26 AM EDT Gender Identity Male 05/02/2024 8:22 AM EST Sexual Orientation Choose not to disclose 2024 8:22 AM EST documented as of this encounter Miscellaneous Notes * Telephone Encounter - Caroline Middleton RN - 09/13/2024 3:12 PM EDT Call returned to [facility] with [employer] [facility] . Pt is seen by them every other day. Last in home visit today. Other VS WNL per [facility]. Pt was not feeling irregular heart beat. Denies any other sx. [facility] has requested that pt check BP with automatic BP kit BID to log. Pt to be seen again on Wednesday. States if any med or orders to please call in to [facility] main number. Per chart review pt recently discharged from [facility] on 09/08 for Dx. Necrotizing soft tissue infection: Discharged with Rx for amoxicillin-pot clavulanate 875-125 mg tablet 1 tab PO BID 10 Days Qty: 20 0RF and oxycodone 5 mg tablet 1 tab PO Q6H PRN (Reason: pain (scale score 7-10)) Qty: 15 0RF. Call returned to Jack Navarro to triage below at [phone]. Reports not having any elevated HR in past. Pt denies any CP, SOB or palpitations. Per pt only took rx on day 1 and on day 2. Per pt had blood in stool after first dose. Pt stopped abx and not taking as prescribed. Pt denies an fever. No pain at wound site. Per pt [facility] is providing wound care. Pt advised of disposition, agrees to HD[facility] appt next week with team provider. Reviewed home care advise, ER precautions (CP, SOB, palpitations or weakness) and reasons to call back. Protocol Used: Heart Rate and Heartbeat Questions (Adult) Protocol-Based Disposition: See in Office or Video Visit Today Override (Final) Disposition: Discuss with PCP and Callback by Nurse Today Override Reason: No appointments available Positive Triage Questions: * Age > 60 years (Exception: Brief heartbeat symptoms that went away and now feels well.) * Taking water pill (i.e., diuretic) or heart medication (e.g., digoxin) * All higher-acuity triage questions were negative Care Advice Discussed: * Reassurance and Education - Palpitations and Extra Heartbeats * Avoid Caffeine * Reasons To Call Back - Chest pain, lightheadedness or difficulty breathing occurs - You become worse * Telephone Encounter - Modesta Peck - 09/13/2024 3:07 PM EDT Symptom: Heartbeat Symptoms (Fast, Slow, or Irregular) Outcome: Schedule a same-day appointment or talk to a nurse or provider today Reason: Caller denied all higher acuity questions The caller accepted this outcome. [phone] [facility] Pulse: 128 documented in this encounter Plan of Treatment Upcoming Encounters Date Type Department Care Team (Late st Contact Info) Description 04/18/2025 11:15 AM EST Office Visit [facility] [address] [place] [address] Emily Munson MD [address] [place] [address] documented as of this encounter Visit Diagnoses Not on filedocumented in this encounter Additional Health Concerns Assessment Noted Time PHQ-9 Depression Total Score: 23 025 11:39 AM EDT documented as of this encounter Care Teams Numerical Control Tool Programmer Relationship Specialty Start Date End Date Emily Munson MD [address] [place] [phone] PCP - General Internal Medicine 09/06/24 [place] [facility] 09/09/24 documented as of this encounter
--- OUTSIDE RECORDS SUMMARY | 2025-02-27 11:30 | XMS_ITS | Clinical Summary ---
Author Organization [employer] Address [address] [place] [address] 7[address] [place] [address] Care Team Providers Care Stand In Name Role Phone Emily Munson MD Primary Care Provider + Allergies Active Allergy Reactions Criticality Noted Date Comments Amoxicillin-Pot Clavulanate GI bleeding 025 Lisinopril Unknown 09/24/2021 Other Reaction(s): cough, n/v/d Other reaction(s): cough, n/v/d Medications Alcohol Swabs (Alcohol Pads) 70 % pads Apply 1 Application topically Once per day. 09/17/19 21 Active methotrexate 2.5 MG tablet Take 10 mg by mouth 1 (one) time per week. 07/10/19 23 Active D3-1000 25 MCG (1000 UT) capsule Take 1 capsule by mouth Once per day. 08/02/19 25 Active Multiple Vitamin (One-Daily Multi-Vitamin ) tablet Take 1 tablet by mouth Once per day. 08/02/19 25 Active SITagliptin-m etFORMIN (Janumet) 50-1000 MG tabletIndicat ions:Type 2 diabetes mellitus with hyperglycemia , without long-term current use of insulin (HCC) Take 1 tablet by mouth with breakfast and with evening meal. 60 tablet 11 01/17/20 25 026 Active oxybutynin XL (Ditropan XL) 5 MG 24 hr tablet Take 1 tablet (5 mg) by mouth Once per day. Do not crush, chew, or split. 30 tablet 11 5 9:57 AM EST 02/15/20 25 026 Active losartan-hydr oCHLOROthiazi de (Hyzaar) 100-25 MG tablet Take 1 tablet by mouth Once per day. 90 tablet 3 02/15/20 25 Active losartan-hydr oCHLOROthiazi de (Hyzaar) 100-25 MG tablet Take 1 tablet by mouth Once per day. 90 tablet 10/31/19 25 025 Discontinued(Re order (will not trigger notification to Pharmacy)) clotrimazole (Lotrimin) 1 % cream Apply topically 2 times daily for 28 days. 30 g 1 01/17/20 25 025 losartan-hydr oCHLOROthiazi de (Hyzaar) 100-25 MG tablet Take 1 tablet by mouth Once per day. 90 tablet 02/14/20 25 025 Discontinued(Re order (will not trigger notification to Pharmacy)) Active Problems Problem Noted Date Diagnosed Date Rheumatoid arthritis, involv ing unspecified site, unspecified whether rheumatoid factor present ([facility]) 01/16/2025 Assessment & Plan (01/17/2025 4:17 PM EDT): Unknown diagnosis per patient, he thinks he had arthritis but resolved. Order serology, patient does not have clinical evidence of RA. Follow-up next visit COPD with chronic bronchitis ([facility]) Assessment & Plan (01/17/2025 4:17 PM EDT): Use albuterol as needed Declined COVID, PCV and influenza immunization. Advised to have RSV immunization at earliest convenience Continuous leakage of urine 01/16/2025 Assessment & Plan (02/14/2025 4:25 PM EST): - Referred to urology for further evaluation and management of urinary leakage. Recommended use of special cushions to alleviate pressure and discomfort. - Wear pull ups and zinc oxide protective cream on perineal area Assessment & Plan (01/17/2025 4:16 PM EDT): Status post TURP (BPH). Patient is wearing pull-ups, follow-up with urology Overweight 01/16/2025 Assessment & Plan (01/17/2025 4:16 PM EDT): Discussed re weight reduction options including exercise, life style modifications, diet. Recommended to decrease soda and sugary beverage consumption, increase protein intake with meals (at least 1 portion of protein with each meal) to assist with satiety, increase dietary fiber Recommended at least 150 min/week of moderate intensity exercise. Onychomycosis of multiple to enails with type 2 diabetes mellitus, with long-term current use of insulin 01/16/2025 Assessment & Plan (01/17/2025 4:18 PM EDT): Patient had basic long toenails with toenail atrophy. Refer to podiatry Abscess of deep perineal space 09/06/2024 Assessment & Plan (02/14/2025 4:28 PM EST): - Abscess requires ongoing wound care and monitoring, refer to Wound clinic. - He's to be out of work for 2-3d to decrease pressure on perineal area, I will fill out FMLA documentation to accommodate work absences for medical appointments and treatments. - Continue Bactrim DS for UTI and perineal cellulitis. Assessment & Plan (09/06/2024 2:19 PM EDT): Patient did not complete prescribed antibiotics, he now has a partially drained perineal abscess, rule out necrotizing for cellulitis. I have an extensive discussion with patient and his regarding the importance of going to ED immediately for further evaluation, the probably debridement, IVF and IV antibiotics. I have discussed the risk of further complications including if he is not seen within the next 12 to 24 hours. Their friend and neighbor is bringing them now to the emergency room, patient agreed to follow-up with them and her POC I gave him a letter to be out of for this week, he has been out of work since approximately 08/21/2024, FMLA will be filled out I will call them once he is ready (SHERON was signed by patient today) I will follow-up with patient once he is discharged from the hospital. Type 2 diabetes mellitus wit h hyperglycemia, without long-term current use of insulin 09/06/2024 Assessment & Plan (02/14/2025 4:30 PM EST): We discussed re importance of med compliance and tight control of DM Continue Metformin + Januvia, will try to get a less expensive med if possible as cost may limit compliancedc Assessment & Plan (01/17/2025 4:16 PM EDT): Uncontrolled, A1c is improving. DC metformin and switch to Janumet twice daily, follow-up with me in 3 months Counseled re more frequent low calorie/carb meals. Check fgstk 2x daily Encouraged physical activity as tolerated. FU in 3 months. Will refer to ophthalmology clinic Foot examination is normal, no diabetic neuropathy, will refer to podiatry for toenail trimming due to curved toenails Declined influenza and COVID immunization Assessment & Plan (09/06/2024 2:20 PM EDT): Last A1c shows fair control of DM, I will follow-up after hospital discharge Continue metformin twice daily, discussed with him the importance of medication compliance. Medication may be adjusted or hold at this time due to possibility of sepsis and lactic acidosis from perineal abscess At Primary hypertension 09/06/2024 Assessment & Plan (09/06/2024 2:21 PM EDT): Patient is hypertensive today, probably as a result of bacteremia/? Sepsis I told him not to take the medications until he is seen by ED provider Follow-up with me once you are discharged from the emergency room or hospitalization Encounters Date Type Department Care Team Description 02/15/2025 Telephone [facility] [address] [place] [phone] Emily Munson MD DME 02/14/2025 9:30 AM EST Office Visit [address] [address] Emily Munson MD Type 2 diabetes mellitus with hyperglycemia, without long-term current use of insulin (HCC) (Primary Dx); Continuous leakage of urine; Abscess of deep perineal space 02/14/2025 Travel 02/13/2025 Refill [facility] [address] [place] [address] Emily Munson MD 02/13/2025 Telephone [facility] [address] [place] [phone] Emily Munson MD chart prep 02/08/[address] [address] Emily Munson MD 02/07/[address] [address] Emily Munson MD FMLA (I called the patient regarding an application for FMLA. He stated that it is a renewal, because he submitted an application in August of 2024. ) 01/23/2025 Orders Only [facility] [address] [place] [address] ProviderChino MD 01/16/2025 10:00 AM EDT Office Visit [address] [address] Emily Munson MD Rheumatoid arthritis, involving unspecified site, unspecified whether rheumatoid factor present (CMS/HCC) (HCC) (Primary Dx); Type 2 diabetes mellitus with hyperglycemia, without long-term current use of insulin (HCC); Overweight; COPD with chronic bronchitis (CMS/HCC) (HCC); Onychomycosis of multiple toenails with type 2 diabetes mellitus, with long-term current use of insulin (HCC); Continuous leakage of urine; Dietary counseling; Exercise counseling; Candidiasis of perineum 01/16/2025 Travel 01/15/[address] [address] Emily Munson MD Chart Prep from Last 3 Months Immunizations Immunization Administration Dates Next Due Influenza, IIV3, injectable 04/07/2011, 8 Influenza, Unspecified 04/07/2011,01/31/2008 Influenza, live, intranasal 01/23/2009 Pneumococcal Polysaccharide PPSV23 11/19/2009 Td (adult), unspecified 10/01/2006 Tdap 03/18/2010 Social History Tobacco Use Types Packs/Day Years Used Date Smoking Tobacco: Every Day Cigarettes Smokeless Tobacco: Never Tobacco Cessation:Ready to Q uit: Not Asked; Counseling Given: Not Answered Alcohol Use Standard Drinks/Week Comments Never 0 (1 standard drink = 0.6 oz pur e alcohol) Alcohol Answer Date Recorded How often do you have a drink containing alcohol ? 2 02/14/2025 Average Number of Drinks Not on file 025 Frequency of Binge Drinking Not on file 01/27 Depression Answer Date Recorded Patient Health Questionnaire-9 [...] not to disclose 2024 8:22 AM EST Last Filed Vital Signs Vital Sign Reading Time Taken Comments Blood Pressure 140/74 02/14/2025 9:50 AM EST Pulse 107 02/14/2025 9:50 AM EST Temperature 36.7 C (98.1 F) 02/14/2025 9:50 AM EST Respiratory Rate 18 02/14/2025 9:50 AM EST Oxygen Saturation 99% 02/14/2025 9:50 AM EST Inhaled Oxygen Concentration - - Weight 80 kg (176 lb 6.4 oz) 02/14/2025 9:50 AM EST Height 170.2 cm (5' 7 ) 02/14/2025 9:50 AM EST Body Mass Index 27.63 02/14/2025 9:50 AM EST Plan of Treatment Upcoming Encounters Date Type Department Care Team (Late st Contact Info) Description 04/18/2025 11:15 AM EST Office Visit [facility] [address], [place] [phone] Emily Munson MD [address] [place], [place] [phone] Health Maintenance Due Date Last Done Comments CT Colonography 1961 Colonoscopy 1961 Colorectal Cancer Screening 1961 FIT DNA/Cologuard 1961 FIT 1961 FOBT 1961 HIV Screening 1961 Lipid Panel 1961 Sigmoidoscopy 1961 Hepatitis C Screening 07/12/1979 Diabetes: Urine Protein Screening 1980 Pneumococcal Vaccine: 50+ Years (2 of 2 - PCV) 11/19/2010 11/19/2009 RSV Patients and Patients Aged 60 years or older (1 - Risk 50-74 years 1-dose series) 07/12/2011 Zoster Vaccines (1 of 2) 07/12/2011 Dental Prophylaxis 08/07/2011 02/05/2011 Dental Oral Exam 03/31/2012 09/28/2011 Dental X-Ray: Bitewings 09/28/2012 09/28/2011, 02/05 Dental X-Ray: Full Mouth 10/09/2014 10/09/2011, 01/27 DTaP/Tdap/Td Vaccines (2 - Td or Tdap) 03/18/2020 03/18/2010, 10/01/2006 COVID-19 Vaccine ( - season) 2024 Influenza Vaccine (#1) 2024 2, 04/07/2011, 01/23/2009, Additional history exists Depression Monitoring 03/08/2025 09/06/2024, 025 Diabetes: Hemoglobin A1C 04/18/2025 01/16/2025, 08/28 Disability Screening 09/06/2025 09/06/2024 SDOH Screening 09/06/2025 09/06/2024 Alcohol/Substance Use Screening 09/20/2025 09/20/2024 Diabetes: Foot Exam 01/16/2026 01/16/2025, 01/16/2025, 01/16/2025, Additional history exists Tobacco Screening 02/14/2026 02/14/2025 Eye Exam 01/19/2027 01/19/2025 HIB Vaccines Aged Out No longer eligi ble based on patient's age to complete this topic HPV Vaccines Aged Out No longer eligi ble based on patient's age to complete this topic Hepatitis A Vaccines Aged Out No long er eligible based on patient's age to complete this topic Hepatitis B Vaccines Aged Out No long er eligible based on patient's age to complete this topic IPV Vaccines Aged Out No longer eligi ble based on patient's age to complete this topic Meningococcal B Vaccine Aged Out No l onger eligible based on patient's age to complete this topic Meningococcal Vaccine Aged Out No britta negrito eligible based on patient's age to complete this topic RSV under 20 months Aged Out No longe r eligible based on patient's age to complete this topic Rotavirus Vaccines Aged Out No longer eligible based on patient's age to complete this topic Goals Goal Patient Goal Type Associated Problems Recent Progress Patient-Stated? Author Help patients manage their type 2 diabetes Care Plan Help patients manage their type 2 diabetes No Leanna Blanca MA Weekly blood pressure task Care Plan Weekly blood pressure task No Leanna Blanca MA Help patients manage their type 2 diabetes Care Plan Help patients manage their type 2 diabetes No Leanna Blanca MA Patient has chronic kidney disease Care Plan Patient has chronic kidney disease No Leanna Blanca MA Weekly blood pressure task Care Plan Weekly blood pressure task No Leanna Blanca MA Patient has chronic kidney disease Care Plan Patient has chronic kidney disease No Leanna Blanca MA Weekly blood pressure task Care Plan Weekly blood pressure task Leanna Cerrato MA Weekly blood pressure task Care Plan Weekly blood pressure task No Leanna Blanca MA Patient has chronic kidney disease Care Plan Patient has chronic kidney disease No Leanna Blanca MA Patient has chronic kidney disease Care Plan Patient has chronic kidney disease No Leanna Blanca MA Weekly blood pressure task Care Plan Weekly blood pressure task No Danielle Meeks LPN Weekly blood pressure task Care Plan Weekly blood pressure task No Danielle Meeks LPN Patient has chronic kidney disease Care Plan Patient has chronic kidney disease No Danielle Meeks LPN Patient has chronic kidney disease Care Plan Patient has chronic kidney disease No Danielle Meeks LPN Weekly blood pressure task Care Plan Weekly blood pressure task No Ann Jhaveri MA Weekly blood pressure task Care Plan Weekly blood pressure task No Ann Jhaveri MA Patient has chronic kidney disease Care Plan Patient has chronic kidney disease No Ann Jhaveri MA Patient has chronic kidney disease Care Plan Patient has chronic kidney disease No Ann Jhaveri MA Weekly blood pressure task Care Plan Weekly blood pressure task No Karen Ho Weekly blood pressure task Care Plan Weekly blood pressure task No Karen Ho Patient has chronic kidney disease Care Plan Patient has chronic kidney disease No Karne Ho Patient has chronic kidney disease Care Plan Patient has chronic kidney disease No Karen Ho Weekly blood pressure task Care Plan Weekly blood pressure task No Karen Ho Weekly blood pressure task Care Plan Weekly blood pressure task No Karen Ho Patient has chronic kidney disease Care Plan Patient has chronic kidney disease No Karen Ho Patient has chronic kidney disease Care Plan Patient has chronic kidney disease No Karen Ho Weekly blood pressure task Care Plan Weekly blood pressure task No Ann Jhaveri MA Weekly blood pressure task Care Plan Weekly blood pressure task No Ann Jhaveri MA Patient has chronic kidney disease Care Plan Patient has chronic kidney disease No Ann Jhaveri MA Patient has chronic kidney disease Care Plan Patient has chronic kidney disease No Ann Jhaveri MA Procedures Procedure Name Priority Date/Time Associated Diagnosis Comments POCT GLUCOSE Routine 02/14/2025 9:50 AM EST Type 2 diabetes mellitus with hyperglycemia, without long-term current use of insulin (HCC) DIABETES EYE EXAM Routine 01/19/2025 2:48 PM EDT POCT GLYCATED HEMOGLOBIN, TOTAL Routine 01/16/2025 10:07 AM EDT Type 2 diabetes mellitus with hyperglycemia, without long-term current use of insulin (HCC) POCT GLUCOSE Routine 01/16/2025 10:04 AM EDT Type 2 diabetes mellitus with hyperglycemia, without long-term current use of insulin (HCC) PANORAMIC RADIOGRAPHIC IMAGE Routine 10/09/2011 12:00 AM EDT BITEWINGS - 4 RADIOGRAPHIC IMAGES Routine 09/28/2011 12:00 AM EDT PERIODIC ORAL EVALUATION - ESTABLISHED PATIENT Routine 09/28/2011 12:00 AM EDT PROPHYLAXIS - ADULT Routine 02/05/2011 1 2:00 AM EST from Last 3 Months or Most Recently Relevant to Health Maintenance Results * POCT Glucose (02/14/2025 9:50 AM EST) Only the most recent of2 resultswithin the time period is included. Glucose Blood, POC 172 60 - 200 mg/dL QC Media Lot # [id number] Lot# Expiration Date Blood Capillary blood specimen / Unknown 02/14/2025 9:50 AM EST Emily Munson MD POINT OF CARE TEST ENTER /EDIT ORDERABLES Final Result * Diabetes Eye Exam (01/19/2025 2:48 PM EDT) Chino Anderson MD HEALTH MAINTENANCE Final Result * (ABNORMAL) POCT Hgb A1c (01/16/2025 10:07 AM EDT) Hemoglobin A1C 8.8(A) 4.0 - 5.7 % QC Media Lot # [id number] Lot# Expiration Date ,026 Blood 01/16/2025 10:0 7 AM EDT Emily Munson MD POINT OF CARE TEST ENTER /EDIT ORDERABLES Final Result from Last 3 Months Additional Health Concerns Active Problems Noted Date Diagnosed Date Help patients manage their type 2 diabetes 02/08 Weekly blood pressure task 02/08/2025 Help patients manage their type 2 diabetes 02/08 Patient has chronic kidney disease 02/08/2025 Weekly blood pressure task 02/08/2025 Patient has chronic kidney disease 02/08/2025 Weekly blood pressure task 02/13/2025 Weekly blood pressure task 02/13/2025 Patient has chronic kidney disease 02/13/2025 Patient has chronic kidney disease 02/13/2025 Weekly blood pressure task 02/13/2025 Weekly blood pressure task 02/13/2025 Patient has chronic kidney disease 02/13/2025 Patient has chronic kidney disease 02/13/2025 Weekly blood pressure task 02/14/2025 Weekly blood pressure task 02/14/2025 Patient has chronic kidney disease 02/14/2025 Patient has chronic kidney disease 02/14/2025 Weekly blood pressure task 02/15/2025 Weekly blood pressure task 02/15/2025 Patient has chronic kidney disease 02/15/2025 Patient has chronic kidney disease 02/15/2025 Weekly blood pressure task 02/15/2025 Weekly blood pressure task 02/15/2025 Patient has chronic kidney disease 02/15/2025 Patient has chronic kidney disease 02/15/2025 Weekly blood pressure task 02/15/2025 Weekly blood pressure task 02/15/2025 Patient has chronic kidney disease 02/15/2025 Patient has chronic kidney disease 02/15/[address] [place] [address] [place] [address] 3 Care Teams Stand In Relationship Specialty Start Date End Date Emily Munson MD [address] [place] [id number] PCP - General Internal Medicine [facility]
--- OUTSIDE RECORDS SUMMARY | 2025-02-27 11:30 | XMS_ITS | Encounter Summary ---
Author Organization [employer] Address [address] [facility] 7t [place] [address] Care Team Providers Care Shank Cutter Name Role Phone Emily Munson MD Primary Care Provider + Encounter Details Date Type Department Care Team (Late st Contact Info) Description 01/23/2025 Orders Only [facility] MED & PEDS [address] [place], [place] [id number] Provider, MD [place] Social History Tobacco Use Types Packs/Day Years Used Date Smoking Tobacco: Every Day Cigarettes Smokeless Tobacco: Never Alcohol Use Standard Drinks/Week [...] AM EST documented as of this encounter Plan of Treatment Upcoming Encounters Date Type Department Care Team (Late st Contact Info) Description 04/18/2025 11:15 AM EST Office Visit [facility] MEDICINE [address] [place] [address] Emily Munson MD [address] [place] [address] documented as of this encounter Procedures Procedure Name Priority Date/Time Associated Diagnosis Comments DIABETES EYE EXAM Routine 01/19/2025 2:48 PM EDT documented in this encounter Results * Diabetes Eye Exam (01/19/2025 2:48 PM EDT) Historical Provider HEALTH MAINTENANCE Final Result documented in this encounter Visit Diagnoses Not on filedocumented in this encounter Additional Health Concerns Assessment Noted Time PHQ-9 Depression Total Score: 23 025 11:39 AM EDT documented as of this encounter Care Teams Shank Cutter Relationship Specialty Start Date End Date Emily Munson MD [address] [place] [address] PCP - General Internal Medicine 09/06/24 Raulito SMITHA 09/09/24 documented as of this encounter
--- OUTSIDE RECORDS SUMMARY | 2025-02-27 11:30 | XMS_ITS | Encounter Summary ---
Author Organization [facility] Address [address] [place] [address] [address] [place] [address] Care Team Providers Care Upholstery Cleaner Name Role Phone Emily Munson MD Primary Care Provider + Reason for Visit * Reason Comments Med Refill Encounter Details Date Type Department Care Team (Late Contact Info) Description 08/01/2024 Refill [facility] MEDICINE [address] [place] [phone] Emily Munson MD [address] [place] [phone] Social History Tobacco Use Types Packs/Day Years [...] Description 04/18/2025 11:15 AM EST Office Visit [facility] MEDICINE [address] [place] [phone] Emily Munson MD [address] [place] [address] documented as of this encounter Visit Diagnoses Not on filedocumented in this encounter Care Teams Upholstery Cleaner Relationship Specialty Start Date End Date Emily Munson MD [address] [place] [phone] PCP - General Internal Medicine 09/06/24 Raulito BARBOSA 09/09/24 documented as of this encounter
--- OUTSIDE RECORDS SUMMARY | 2025-02-27 11:30 | XMS_ITS | Encounter Summary ---
Author Organization [facility] Address [address] [place] [address] Care Team Providers Care Convention Planner Name Role Phone Shaina Nick NP Primary Care Provide r Encounter Details Date Type Department Care Team (Late Contact Info) Description 02/06/2025 Lab Requisition [facility] - Main Lab [address] [facility] [place] [address] Evans Fisher PA [address] [place] [address] Urinary tract infection, site not specified Social History Tobacco Use Types Packs/Day Years Used Date Smoking Tobacco: Never Assessed Sex and Gender Information Value Date Recorded Sex Assigned at Not on file Legal Sex Male 9:06 AM EDT Gender Identity Not on file Sexual Orientation Not on file documented as of this encounter Plan of Treatment Not on file documented as of this encounter Procedures Procedure Name Priority Date/Time Associated Diagnosis Comments CULTURE URINE Routine 02/06/2025 12:00 AM EST Urinary tract infection, site not specified documented in this encounter Results * (ABNORMAL) Culture urine (02/06/2025 12:00 AM EST) Culture, Urine 50,000-100,000 CFU/mL Staphylococcus epidermidis(A) MANUEL 02/10/2025 9:13 AM EST [facility] ([facility] Comment: Beta-lactamase negative The organism value for this result has been updated. These results have been appended to the previously preliminary verified report. Edited result: Previously reported as Gram Positive Cocci on 02/08/2025 at 1104 EST. Urine Urine specimen obtained by clean catch procedure / Unknown 02/06/2025 02/06/2025 12:37 PM EST Narrative Organism Antibiotic Method Susceptibility Staphylococcus epidermidis Benzylpenicillin MANUEL Susceptible Comment:This is an a ppended report. These results have been appended to a previously preliminary verified report. Staphylococcus epidermidis Oxacillin MANUEL <=0.25 ug/ml: Susceptible Staphylococcus epidermidis Gentamicin MANUEL 8 ug/ml: Intermediate Staphylococcus epidermidis Ciprofloxacin MANUEL >=8 ug/ml: Resistant Staphylococcus epidermidis Levofloxacin MANUEL >=8 ug/ml: Resistant Staphylococcus epidermidis Quinupristin/Dalfopristin M IC <=0.25 ug/ml: Susceptible Staphylococcus epidermidis Linezolid MANUEL 1 ug/ml: Susceptible Staphylococcus epidermidis Vancomycin MANUEL 2 ug/ml: Susceptible Staphylococcus epidermidis Tetracycline MANUEL 2 ug/ml: Susceptible Staphylococcus epidermidis Nitrofurantoin MANUEL 32 ug/ml: Susceptible Staphylococcus epidermidis Rifampin MANUEL <=0.5 ug/ml: Susceptible us [facility] MICRO[facility]OLOG[facility] - GENERAL O RDERABLES Final Result [facility] ([facility]) [facility] [address] [place] [address], documented in this encounter Visit Diagnoses Diagnosis Urinary tract infection, site not specified documented in this encounter Care Teams Convention Planner Relationship Specialty Start Date End Date Shaina Nick NP [address] [place] [phone] PCP - General Family Medicine 02/06/25 documented as of this encounter
--- OUTSIDE RECORDS SUMMARY | 2025-02-27 11:31 | XMS_ITS | Clinical Summary ---
Author Organization [place] [address] [facility] Address [address] [place] [address] Phone Care Team Providers Care Dairy Equipment Mechanic Name Role Phone Shaina Nick NP Primary Care Provide r Encounters Date Type Department Care Team Description 02/06/2025 Lab Requisition [facility] - Main Lab [address] [facility] [place] [address] Evans Fisher PA Urinary tract infection, site not specified from Last 3 Months Social History Tobacco Use Types Packs/Day Years Used Date Smoking Tobacco: Never Assessed Sex and Gender Information Value Date Recorded Sex Assigned at Not on file Legal Sex Male 9:06 AM EDT Gender Identity Not on file Sexual Orientation Not on file Plan of Treatment Health Maintenance Due Date Last Done Comments Colorectal Cancer Screening: Colonoscopy 1961 Diabetes: Annual GFR (Glomerular Filtration Rate) 1961 Diabetes: Annual Foot Exam 07/12/1971 Diabetes: Annual Retina Eye Exam 07/12/1971 Pneumococcal Vaccine: 50+ Years (2 of 2 - PCV) 11/19/2010 11/19/2009 RSV Immunization Adult Patients (1 - Risk 50-74 years 1-dose series) 07/12/2011 Zoster Vaccines (1 of 2) 07/12/2011 DTaP,Tdap,and Td Vaccines (3 - Td or Tdap) 03/18/2020 03/18/2010, 10/01/2006 Depression Screening 03/29/2024 Cholesterol Screening (Lipid Panel) 06/19/2024 HIV Screening 06/19/2024 Hepatitis C Screening 06/19/2024 Social Influencers of Health Screening 06/19/2024 COVID-19 Vaccine (1 - 2024-2 6 season) 2024 Influenza Vaccine (#1) 2024 2, 01/23/2009, 01/31/2008 Diabetes: Annual Urine Albumin-Creatinine Ratio (uACR) 02/08/2025 Hypertension/CHF/CAD Annual BMP Blood Test 02/08/2025 Diabetes: Blood Sugar Contro l Test (HGBA1C) 07/17/2025 01/16/2025 HIB Vaccines Aged Out No longer eligi [...] on patient's age to complete this topic MMR Vaccines Aged Out No longer eligi ble based on patient's age to complete this topic Meningococcal ACWY Vaccine Aged Out N o longer eligible based on patient's age to complete this topic Meningococcal B Vaccine Aged Out No l onger eligible based on patient's age to complete this topic RSV Immunization Patients Under 20 months Aged Out No longer eligible b ased on patient's age to complete this topic Varicella Vaccines Aged Out No longer eligible based on patient's age to complete this topic Procedures Procedure Name Priority Date/Time Associated Diagnosis Comments CULTURE URINE Routine 02/06/2025 12:00 AM EST Urinary tract infection, site not specified from Last 3 Months Results * (ABNORMAL) Culture urine (02/06/2025 12:00 AM EST) Culture, Urine 50,000-100,000 CFU/mL Staphylococcus epidermidis(A) MANUEL 02/10/2025 9:13 AM EST [facility] Comment: Beta-lactamase negative The organism value [...] Rifampin MANUEL <=0.5 ug/ml: Susceptible us [facility]CRO[facility] - GENERAL O RDERABLES Final Result [facility] ([facility] [address] [place] [address], from Last 3 Months Insurance [facility] [employer] Care Teams Dairy Equipment Mechanic Relationship Specialty Start Date End Date Shaina Nick NP [address] [place] [phone] PCP - General Family Medicine 02/06/25
== END 2025-02-27 10:50 | disposition home or self-care (01) ==
LOC: HO.HPODS 10:08
PROVIDERS: PCP Internal Medicine; Visit Provider Student in an Organized Health Care Education/Training Program
DX: E11.40 Type 2 diabetes mellitus with diabetic neuropathy, unspecified (principal); L60.9 Nail disorder, unspecified; L60.3 Nail dystrophy; B35.1 Tinea unguium
CPT/HCPCS: 11721; 99204; G9226